=== PATIENT | male | born 1950 | race Caucasian/White ===

== ENCOUNTER 2017-07-19 15:43 | Inpatient (IN) | payer MEDICARE ==
[~2017-07-19] VITALS: Ht 188 cm; Wt 93.0 kg
[~2017-07-19 15:43] MED LIST: COMBTAB PO; COUM5TAB PO; CYMB30CA PO; CYMB60CA PO; CYPR4TAB PO; HYDR10TA16 PO; LAMO25 PO; LISI-360 PO; LORT5TAB PO; NIAC500 PO; PRAV10 PO; QUET1TAB66 PO; REME45TA PO; TRAZ50TA78 PO; XANA1TAB6 PO; [UNRECOGNIZED DRUG - CODE] PO
[2017-07-19 15:58] VITALS: BP 102/55; PULSE 88; RESP 18; TEMP 98.1; O2SAT 95
[2017-07-19 18:38] VITALS: O2SAT 98
[2017-07-19 18:41] VITALS: BP 111/65; PULSE 80; RESP 18; O2SAT 98
[2017-07-19] MEDS ORDERED: SODIUM CHLORIDE 0.9% FLUSH 10 ML FLUSH IVF PRN (18:45)
[2017-07-19] MEDS ORDERED: SODIUM CHLOR 0.9% 1000 ML INJ 1,000 ML IV ONE (18:45)
--- NOTE | 2017-07-19 19:00 | RADRPT ---
EXAM DATE/TIME: 07/19/2017 18:38 [facility] COMPARISON: No previous studies available for comparison. INDICATIONS : Palpitations MEDICAL HISTORY : None. SURGICAL HISTORY : None. ENCOUNTER: Initial ACUITY: 1 day PAIN SCORE: 0/10 LOCATION: chest FINDINGS: A single view of the chest demonstrates the lungs to be symmetrically aerated without evidence of mas s, infiltrate or effusion. The cardiomediastinal contours are unremarkable. Osseous structures are intact. CONCLUSION: No acute disease. Clarence Gaston MD on July 19, 2017 at 18:58 Board Certified Radiologist. This report was verified electronically.
--- NOTE | 2017-07-19 19:18 | PD ---
HPI Chief Complaint: General Weakness Time Seen by Provider: 18:12 Travel History International Travel<30 days: No Contact w/Intl Traveler<30days: No Traveled to known affect area: No History of Present Illness HPI 66 YO M with PMH of HIV, CKD presents to the ED for evaluation of 3 day history of weakness, dizziness. He denies headaches, vision changes, fevers, chills, CP , palpitations, N/V, abdominal pain, changes in bowel habits, melena, hematochezia, dysuria. He states that he has been crawling around his house due to inability to stand. He states that he does make urine, last urination earlier this morning. States last viral load was undetectable and CD4 counts in the 1200s. PCP Dr. Pastrana. [facility] Past Medical History Asthma: No Autoimmune Disease: Yes Bipolar Disorder: Yes Anxiety: Yes Depression: Yes Diabetes: No Diminished Hearing: No Hepatitis: Yes (HEP. A, HIV +) Hiatal Hernia: No Hypertension: Yes Immune Disorder: Yes (HIV/HERPES) Inguinal Hernia: Yes Tetanus Vaccination: < 5 Years Influenza Vaccination: No PNEUMOCCOCAL Vaccine (Year): 1 Past Surgical History Pacemaker: No Other Surgery: Yes (PERIRECTAL ABCESS REMOVAL "YEARS AGO") Social History Alcohol Use: No Tobacco Use: No (PPD) Substance Use: No Allergies-Medications (Allergen,Severity, Reaction): Coded Allergies: emtricitabine (Unverified Adverse Reaction, Severe, AMS, N&V, H/A, LEG SWELLING, 07/20/17) tenofovir (Unverified Adverse Reaction, Severe, AMS, N&V, H/A, LEG SWELLING, 07/20/17) Reported Meds & Prescriptions Reported Meds & Active Scripts Active Review of Systems Except as stated in HPI: all other systems reviewed are Neg Physical Exam Narrative GENERAL: Thin, disheveled, foul-smelling, chronically ill-appearing white male in no acute distress SKIN: Focused skin assessment warm/dry. Multiple skin tears, gout or ecchymosis over the skin surface. No signs of infection. HEAD: Normocephalic. Atraumatic. EYES: No scleral icterus. No injection or drainage. PERRLA. EOMI. NECK: Supple, trachea midline. No JVD or lymphadenopathy. CARDIOVASCULAR: Regular rate and rhythm without murmurs, gallops, or rubs. RESPIRATORY: Breath sounds coarse bilaterally. No accessory muscle use. GASTROINTESTINAL: Abdomen soft, non-tender, nondistended. Active bowel sounds. MUSCULOSKELETAL: No cyanosis, or edema. NEUROLOGICAL: Awake and alert. Cranial nerves II through XII intact. Motor and sensory grossly within normal limits. 3/ 5 muscle strength in all muscle groups. Normal speech. BACK: Nontender without obvious deformity. No CVA tenderness. Data Data Last Documented VS Vital Signs Date Time Temp Pulse Resp B/P (MAP) Pulse Ox O2 Delivery O2 Flow Rate FiO2 07/19/17 20:49 76 16 140/59 (86) 95 Room Air 07/19/17 15:58 98.1 Orders Orders Comprehensive Metabolic Panel (07/19/17 16:52) Complete Blood Count With Diff (07/19/17 16:52) Electrocardiogram (07/19/17 18:35) Act Partial Throm Time (Ptt) (07/19/17 18:35) Prothrombin Time / Inr (Pt) (07/19/17 18:35) Urinalysis - C+S If Indicated (07/19/17 18:35) Chest, Single Ap (07/19/17 18:35) Ct Brain W/O Iv Contrast(Rout) (07/19/17 18:35) Ecg Monitoring (07/19/17 18:35) Iv Access Insert/Monitor (07/19/17 18:35) Oximetry (07/19/17 18:35) Sodium Chloride 0.9% Flush (Ns Flush) (07/19/17 18:45) Sodium Chlor 0.9% 1000 Ml Inj (Ns 1000 M (07/19/17 18:45) Ckmb (Isoenzyme) Profile (07/19/17 17:02) Troponin I (07/19/17 17:02) Admit Order (Ed Use Only) (07/19/17 21:55) Consult Urology (07/19/17 ) CKMB (07/19/17 18:42) CKMB% (07/19/17 18:42) Labs Laboratory Tests Test 07/19/17 18:42 07/19/17 18:45 White Blood Count 10.5 TH/MM3 Red Blood Count 4.76 MIL/MM3 Hemoglobin 16.6 GM/DL Hematocrit 47.3 % Mean Corpuscular Volume 99.4 FL Mean Corpuscular Hemoglobin 34.8 PG Mean Corpuscular Hemoglobin Concent 35.1 % Red Cell Distribution Width 14.6 % Platelet Count 150 TH/MM3 Mean Platelet Volume 7.3 FL Neutrophils (%) (Auto) 69.3 % Lymphocytes (%) (Auto) 18.9 % Monocytes (%) (Auto) 11.7 % Eosinophils (%) (Auto) 0.0 % Basophils (%) (Auto) 0.1 % Neutrophils # (Auto) 7.3 TH/MM3 Lymphocytes # (Auto) 2.0 TH/MM3 Monocytes # (Auto) 1.2 TH/MM3 Eosinophils # (Auto) 0.0 TH/MM3 Basophils # (Auto) 0.0 TH/MM3 CBC Comment DIFF FINAL Differential Comment Blood Urea Nitrogen 34 MG/DL Creatinine 1.31 MG/DL Random Glucose 73 MG/DL Total Protein 7.4 GM/DL Albumin 3.2 GM/DL Calcium Level 9.3 MG/DL Alkaline Phosphatase 86 U/L Aspartate Amino Transf (AST/SGOT) 265 U/L Alanine Aminotransferase (ALT/SGPT) 47 U/L Total Bilirubin 0.7 MG/DL Sodium Level 136 MEQ/L Potassium Level 3.9 MEQ/L Chloride Level 102 MEQ/L Carbon Dioxide Level 25.5 MEQ/L Anion Gap 9 MEQ/L Estimat Glomerular Filtration Rate 55 ML/MIN Total Creatine Kinase 63849 U/L Creatine Kinase MB 18.6 NG/ML Creatine Kinase MB % 0.1 % Troponin I 0.05 NG/ML Prothrombin Time 9.7 SEC Prothromb Time International Ratio 1.0 RATIO Activated Partial Thromboplast Time 25.1 SEC [facility] Medical Decision Making Medical Screen Exam Complete: Yes Emergency Medical Condition: Yes Differential Diagnosis UTI versus PNA versus deconditioning versus metabolic derangement versus dehydration versus other Narrative Course 66 YO M with PMH of HIV, CKD presents to the ED for evaluation of 3 day history of weakness, dizziness. He denies headaches, vision changes, fevers, chills, CP , palpitations, N/V, abdominal pain, changes in bowel habits, melena, hematochezia, dysuria. He states that he has been crawling around his house due to inability to stand. He states that he does make urine, last urination earlier this morning. States last viral load was undetectable and CD4 counts in the 1200s. PCP Dr. Pastrana. Patient's afebrile, BP 102/55 on presentation. Physical exam revealed a disheveled, foul smelling white male in no acute distress. No focal neuro deficits. Abdomen soft and nontender. He does have coarse breath sounds but O2 sats are 95% on room air. EKG rate 84, sinus rhythm. SD interval 167, QRS 85, QTc 388. Normal axis. No acute ST change. Motion artifact. Reviewed by Dr. Gonzalez. CXR: No acute disease per radiology read. CMP: No leukocytosis or anemia noted. INR 1.0. CMP: BUN 34, creatinine 1.31. GFR 55. AST 265, ALT 47. CK 15,[address]: Normal exam per radiology read. Patient was unable to provide a urine sample. Nurses tried multiple times and were unable to insert a Muller catheter. Bladder scan was performed and revealed nearly a liter fluid and the bladder. I spoke with Dr. Amador who will take the patient to the OR for cystoscopy. I spoke with Dr. Alston who agrees to accept the patient to the medicine service. Please see medicine and urology notes for disposition. Lamar Hyman Jul 19, 2017 19:18
[2017-07-19 19:33] LABS: PROTHROMBIN TIME - PATIENT 9.7 SEC (9.8-11.6)
[2017-07-19 19:51] LABS: AUTOMATED NEUTROPHIL # 7.3 TH/MM3 (1.8-7.7); BASOPHIL % 0.1 % (0.0-2.0); HEMATOCRIT 47.3 % (39.0-51.0); HEMOGLOBIN 16.6 GM/DL (13.0-17.0); LYMPH % 18.9 % (9.0-44.0); MEAN CELL VOLUME 99.4 FL (80.0-100.0); MEAN CORPUSCULAR HEMOGLOBIN 34.8 PG (27.0-34.0); MEAN CORPUSCULAR HGB CONC 35.1 % (32.0-36.0); MEAN PLATELET VOLUME 7.3 FL (7.0-11.0); MONO % 11.7 % (0.0-8.0); MONOCYTE # 1.2 TH/MM3 (0-0.9); NEUT % 69.3 % (16.0-70.0); PLATELET COUNT 150 TH/MM3 (150-450); RED BLOOD COUNT 4.76 MIL/MM3 (4.50-5.90); RED CELL DISTRIBUTION WIDTH 14.6 % (11.6-17.2); WHITE BLOOD COUNT 10.5 TH/MM3 (4.0-11.0)
--- NOTE | 2017-07-19 19:53 | RADRPT ---
EXAM DATE/TIME: 07/19/2017 19:37 [facility] COMPARISON: No previous studies available for comparison. INDICATIONS : Dizziness,Incresing weakness,falls RADIATION DOSE: 44.12 CTDIvol (mGy) MEDICAL HISTORY : Hypertension. Hepatitis A. HIV. SURGICAL HISTORY : None. ENCOUNTER: Initial ACUITY: 2 days PAIN SCALE: 0/10 LOCATION: cranial TECHNIQUE: Multiple contiguous axial images were obtained of the head. Using automated exposure control and adj ustment of the mA and/or kV according to patient size, radiation dose was kept as low as reasonably a chievable to obtain optimal diagnostic quality images. DICOM format image data is available electro nically for review and comparison. FINDINGS: CEREBRUM: The ventricles are normal for age. No evidence of midline shift, mass lesion, hemorrhage or acute in farction. No extra-axial fluid collections are seen. POSTERIOR FOSSA: The cerebellum and brainstem are intact. The 4th ventricle is midline. The cerebellopontine angle i s unremarkable. EXTRACRANIAL: The visualized portion of the orbits is intact. SKULL: The calvaria is intact. No evidence of skull fracture. CONCLUSION: Normal examination. Clarence Gaston MD on July 19, 2017 at 19:50 Board Certified Radiologist. This report was verified electronically.
[2017-07-19 20:10] LABS: ALBUMIN 3.2 GM/DL (3.4-5.0); AST (GOT) 265 U/L (15-37); BICARBONATE 25.5 MEQ/L (21.0-32.0); BLOOD UREA NITROGEN 34 MG/DL (7-18); CALCIUM 9.3 MG/DL (8.5-10.1); CHLORIDE 102 MEQ/L (98-107); CREATININE 1.31 MG/DL (0.60-1.30); GLOMERULAR FILTRATION RATE 55 ML/MIN (>89); GLUCOSE,RANDOM 73 MG/DL (74-106); SODIUM (NA) 136 MEQ/L (136-145)
[2017-07-19 20:11] LABS: ALT (GPT) 47 U/L (12-78)
[2017-07-19 20:13] LABS: ALKALINE PHOSPHATASE 86 U/L (45-117); TOTAL BILIRUBIN ADULT 0.7 MG/DL (0.2-1.0); TOTAL PROTEIN 7.4 GM/DL (6.4-8.2)
[2017-07-19 20:49] VITALS: BP 140/59; PULSE 76; RESP 16; O2SAT 95
[2017-07-19 21:22] LABS: TROPONIN I 0.05 NG/ML (0.02-0.05)
[2017-07-20] VITALS (7 sets, daily range): BP systolic 110–138; BP diastolic 55–82; PULSE 62–77; RESP 16–22; TEMP 97.9–98.8; O2SAT 95–97
[2017-07-20] MEDS ORDERED: SODIUM CHLORIDE 0.9% FLUSH 10 ML FLUSH IV FLUSH PRN (01:00)
[2017-07-20] MEDS ORDERED: NALOXONE HCL 0.4 MG/ML AMP IV PUSH PRN (01:00)
[2017-07-20] MEDS: SODIUM CHLOR 0.9% 1000 ML INJ 1,000 ML IV SCH ×3 (01:47→18:35)
[2017-07-20 07:31] LABS: BACTERIA, URINE MANY /hpf; BILIRUBIN, URINE NEG (NEG); BLOOD, URINE MOD (NEG); GLUCOSE,URINE NEG (NEG); KETONE, URINE 10 mg/dL (NEG); NITRITE,URINE NEG (NEG); PH, URINE 8.5 (5.0-8.5); TRIPLE PHOSPHATE CRYSTAL,URINE OCC /hpf; URINE COLOR YELLOW (YELLW/STRAW); URINE LEUKOCYTE ESTERASE LARGE (NEG)
[2017-07-20] MEDS: SODIUM CHLORIDE 0.9% FLUSH 10 ML FLUSH IV FLUSH SCH ×2 (08:15→20:07)
[2017-07-20] MEDS: cefTRIAXone INJ 1,000 MG in SODIUM CHLORIDE 0.9% INJ 100 ML IV SCH (09:38)
[2017-07-20] MEDS: DOCUSATE SODIUM 50 MG/SENNA 8.6 MG TAB PO SCH ×2 (09:38→20:05)
--- NOTE | 2017-07-20 09:54 | RADRPT ---
EXAM DATE/TIME: 07/20/2017 08:58 [facility] COMPARISON: No previous studies available for comparison. INDICATIONS : Obstruction. MEDICAL HISTORY : Hepatitis A. Deep venous thrombosis. Hernia, inguinal. HTN. HIV. Bipolar disorder. Depression. Anxiet y. SURGICAL HISTORY : Left knee surgery. Perirectal abscess removal. ENCOUNTER: Initial ACUITY: 1 month PAIN SCORE: 3/10 LOCATION: Bilateral flank MEASUREMENTS: RIGHT KIDNEY: 9.7 x 4.0 x 5.6 cm LEFT KIDNEY: 10.6 x 3.6 x 6.4 cm FINDINGS: RIGHT KIDNEY: Small echogenic kidney without obstruction. LEFT KIDNEY: Small echogenic kidney with 2 cm cyst no hydronephrosis. BLADDER: Distended with sludge in the bladder. Post void residual suspected. CONCLUSION: 1. Small echogenic kidneys without obstruction 2. Sludge in the bladder. Post void residual suspected. Vince Mackay MD FACR on July 20, 2017 at 9:43 Board Certified Radiologist. This report was verified electronically.
[2017-07-20 10:59] LABS: AUTOMATED NEUTROPHIL # 5.4 TH/MM3 (1.8-7.7); BASOPHIL % 0.1 % (0.0-2.0); HEMATOCRIT 44.7 % (39.0-51.0); HEMOGLOBIN 15.5 GM/DL (13.0-17.0); LYMPH % 20.5 % (9.0-44.0); LYMPHOCYTE # 1.6 TH/MM3 (1.0-4.8); MEAN CELL VOLUME 100.3 FL (80.0-100.0); MEAN CORPUSCULAR HEMOGLOBIN 34.9 PG (27.0-34.0); MEAN CORPUSCULAR HGB CONC 34.7 % (32.0-36.0); MEAN PLATELET VOLUME 7.4 FL (7.0-11.0); MONOCYTE # 0.8 TH/MM3 (0-0.9); NEUT % 69.4 % (16.0-70.0); PLATELET COUNT 133 TH/MM3 (150-450); RED BLOOD COUNT 4.45 MIL/MM3 (4.50-5.90); RED CELL DISTRIBUTION WIDTH 14.2 % (11.6-17.2); WHITE BLOOD COUNT 7.7 TH/MM3 (4.0-11.0)
[2017-07-20 11:19] LABS: BICARBONATE 22.1 MEQ/L (21.0-32.0); CALCIUM 8.3 MG/DL (8.5-10.1); CREATININE 0.92 MG/DL (0.60-1.30)
[2017-07-20] MEDS ORDERED: DEXAMETHASONE SOD PHOS 4 MG/ML VIAL IV ONE (12:00)
[2017-07-20] MEDS ORDERED: ONDANSETRON HCL 4 MG/2 ML VIAL IV ONE (12:00)
[2017-07-20] MEDS ORDERED: KETOROLAC TROMETHAMINE 30 MG/ML (IVP) VIAL IV PUSH ONE (12:00)
[2017-07-20] MEDS ORDERED: PROPOFOL 200 MG/20 ML AMP IV ONE (12:00)
[2017-07-20] MEDS ORDERED: LIDOCAINE HCL 1% PF 5 ML SYRINGE OTHER ONE (12:00)
--- NOTE | 2017-07-20 13:19 | PD.CONS ---
[facility] Service Urology Consult Requested By Jessica Hyman Reason for Consult Urinary retention Primary Care Physician Unknown Diagnosis: History of Present Illness 66-year-old gentleman with history HIV and chronic kidney disease who presented to the emergency room with a 3 day history of weakness and dizziness. An attempt was made to pass a Muller catheter while in the ER without success. Multiple attempts were made by the ER staff again without success. A bladder scan was performed consistent with a distended bladder. The patient was subsequently able to void small amounts of urine. A urology consult was placed to assist with insertion of a Muller catheter. Review of Systems Constitutional: COMPLAINS OF: Fatigue, DENIES: Fever Cardiovascular: DENIES: Chest pain Genitourinary: DENIES: Hematuria Except as stated in HPI: all other systems reviewed are Neg Past Family Social History Past Medical History HIV Herpes Depression Anxiety Hypertension Past Surgical History Status post inguinal herniorrhaphy Status post incision and drainage perirectal abscess Reported Medications Refer to EMR Allergies: Coded Allergies: emtricitabine (Unverified Adverse Reaction, Severe, AMS, N&V, H/A, LEG SWELLING, 07/20/17) tenofovir (Unverified Adverse Reaction, Severe, AMS, N&V, H/A, LEG SWELLING, 07/20/17) Active Ordered Medications Refer to EMR Family History Reviewed and noncontributory Social History Denies tobacco, alcohol or intravenous drug abuse Physical Exam Vital Signs Date Time Temp Pulse Resp B/P (MAP) Pulse Ox O2 Delivery O2 Flow Rate FiO2 07/20/17 12:43 98.3 66 18 121/62 (81) 97 07/20/17 08:18 62 07/20/17 08:18 98.2 66 18 117/56 (76) 97 07/20/17 05:30 97.9 76 22 110/58 (75) 95 07/20/17 01:05 98.1 77 16 138/82 (100) 95 Room Air 07/19/17 20:49 76 16 140/59 (86) 95 Room Air 07/19/17 18:41 80 18 111/65 (80) 98 Room Air 07/19/17 18:38 98 Room Air 07/19/17 16:00 88 18 95 Room Air 07/19/17 15:58 98.1 88 18 102/55 (71) 95 Physical Exam GENERAL: Appears stated age. GASTROINTESTINAL: Abdomen soft, non-tender, GENITOURINARY: Bladder moderately distended, no CVA tenderness, normal phallus, testes bilaterally descended MUSCULOSKELETAL: Extremities adequately perfused NEUROLOGICAL: Awake and alert. Normal speech. Lab results reviewed: Yes Laboratory Tests Test 07/19/17 18:42 07/19/17 18:45 07/20/17 06:30 07/20/17 09:59 White Blood Count 10.5 7.7 Red Blood Count 4.76 4.45 Hemoglobin 16.6 15.5 Hematocrit 47.3 44.7 Mean Corpuscular Volume 99.4 100.3 Mean Corpuscular Hemoglobin 34.8 34.9 Mean Corpuscular Hemoglobin Concent 35.1 34.7 Red Cell Distribution Width 14.6 14.2 Platelet Count 150 133 Mean Platelet Volume 7.3 7.4 Neutrophils (%) (Auto) 69.3 69.4 Lymphocytes (%) (Auto) 18.9 20.5 Monocytes (%) (Auto) 11.7 10.0 Eosinophils (%) (Auto) 0.0 0.0 Basophils (%) (Auto) 0.1 0.1 Neutrophils # (Auto) 7.3 5.4 Lymphocytes # (Auto) 2.0 1.6 Monocytes # (Auto) 1.2 0.8 Eosinophils # (Auto) 0.0 0.0 Basophils # (Auto) 0.0 0.0 CBC Comment DIFF FINAL DIFF FINAL Differential Comment Blood Urea Nitrogen 34 31 Creatinine 1.31 0.92 Random Glucose 73 82 Total Protein 7.4 Albumin 3.2 Calcium Level 9.3 8.3 Alkaline Phosphatase 86 Aspartate Amino Transf (AST/SGOT) 265 Alanine Aminotransferase (ALT/SGPT) 47 Total Bilirubin 0.7 Sodium Level 136 140 Potassium Level 3.9 4.0 Chloride Level 102 107 Carbon Dioxide Level 25.5 22.1 Anion Gap 9 11 Estimat Glomerular Filtration Rate 55 82 Total Creatine Kinase 66569 Creatine Kinase MB 18.6 Creatine Kinase MB % 0.1 Troponin I 0.05 Prothrombin Time 9.7 Prothromb Time International Ratio 1.0 Activated Partial Thromboplast Time 25.1 Urine Color YELLOW Urine Turbidity CLOUDY Urine pH 8.5 Urine Specific [place] 1.019 Urine Protein 300 Urine Glucose (UA) NEG Urine Ketones 10 Urine Occult Blood MOD Urine Nitrite NEG Urine Bilirubin NEG Urine Urobilinogen LESS THAN 2.0 Urine Leukocyte Esterase LARGE Urine RBC 134 Urine WBC 61 Urine Triple Phosphate Crystals OCC Urine Bacteria MANY Microscopic Urinalysis Comment CULTURE INDICATED Date/Time Source Procedure Growth Status 07/20/17 06:30 Urine Random Urine Urine Culture Pending Received Result Diagram: 07/20/17 0959 07/20/17 0959 Imaging Last Impressions Renal Ultrasound 07/20/17 0000 Signed Impressions: Service Date/Time: Thursday, July 20, 2017 08:58 - CONCLUSION: 1. Small echogenic kidneys without obstruction 2. Sludge in the bladder. Post void residual suspected. Vince Mackay MD FACR Head CT [id number] Signed Impressions: Service Date/Time: July 19:37 - CONCLUSION: Normal examination. Clarence Gaston MD Chest X-Ray [id number] Signed Impressions: Service Date/Time: July 18:38 - CONCLUSION: No acute disease. Clarence Gaston MD Assessment and Plan Assessment and Plan Urologic impression: 1. Chronic urinary retention 2. Rule out urethral stricture formation Plan: 1. Keep patient n.p.o. 2. Proceed with cystoscopy and possible direct visual internal urethrotomy today Toby Amador MD Jul 20, 2017 13:19
[2017-07-20] MEDS ORDERED: DO NOT ADM ANY ANTICOAGULANT DRUGS PRN (15:35)
--- NOTE | 2017-07-20 15:37 | PD.OP ---
Operative Report Date of Surgery: Jul 20, 2017 Preoperative Diagnosis: (1) Urinary retention Postoperative Diagnosis: (1) Urinary retention Procedure: Cystoscopy and placement of 20 [place] catheter Anesthesia: General Surgeon: Toby Amador Car Designer(s): None Operation and Findings: Indication for procedures: 66-year-old gentleman with urinary retention who presents now for cystoscopy and possible direct visual internal urethrotomy. Operative procedure in detail: Patient was brought to the operating room suite placed supine on the OR table. He was then placed under general anesthesia. He was then repositioned in the dorsolithotomy position and prepped and draped in normal sterile fashion. After appropriate timeout was undertaken I proceeded with cystoscopic evaluation utilizing the rigid cystoscope with a 20 [place] sheath and 30 lens. The patient was noted to have multiple false passages within the bulbar urethra likely related to multiple attempts to place a Muller catheter by the ER staff. I was able to identify the proper channel and was able to pass a sensor 0.035 wire through this channel up to the urinary bladder. I next was able to follow this wire up into the urinary bladder. The prostatic urethra was not obstructing and were no bladder lesions identified. The cystoscope was withdrawn and a 20 [place] catheter was advanced over the wire without difficulty. Once the catheter was in place the wire was withdrawn. The catheter was then placed to gravity drainage. The patient tolerated the procedures without complications and was transferred to the PACU in satisfactory condition. Toby Amador MD Jul 20, 2017 15:37
[2017-07-20] MEDS ORDERED: QUET1TAB66 PO (16:02)
[2017-07-20] MEDS ORDERED: CYPR4TAB PO ×2 (16:02→16:19)
[2017-07-20] MEDS ORDERED: DARU1TAB2 PO (16:02)
[2017-07-20] MEDS ORDERED: PRAV10 PO (16:02)
[2017-07-20] MEDS ORDERED: REME45TA PO (16:02)
[2017-07-20] MEDS ORDERED: ABAC1TAB7 PO (16:02)
[2017-07-20] MEDS ORDERED: MECL-62 PO (16:02)
[2017-07-20] MEDS ORDERED: XANA1TAB6 PO (16:02)
[2017-07-20] MEDS ORDERED: LISI-360 PO (16:02)
[2017-07-20] MEDS ORDERED: CYMB60CA PO (16:02)
[2017-07-20] MEDS ORDERED: HYDR-3583 PO (16:02)
[2017-07-20] MEDS ORDERED: TRAZ50TA78 PO (16:02)
[2017-07-20] MEDS ORDERED: CYMB30CA PO (16:02)
[2017-07-20] MEDS ORDERED: [UNRECOGNIZED DRUG - CODE] PO ×2 (16:19)
[2017-07-20] MEDS ORDERED: QUET1TAB10 PO (16:19)
[2017-07-20] MEDS ORDERED: MIRT45TA PO (16:19)
[2017-07-20] MEDS ORDERED: ALPR1TAB3 PO (16:19)
[2017-07-20] MEDS ORDERED: TRAZ1TAB14 PO (16:19)
[2017-07-20] MEDS ORDERED: LISI10TA3 PO (16:19)
[2017-07-20] MEDS ORDERED: PRAV10TA PO (16:19)
[2017-07-20] MEDS ORDERED: ABACAVIR LAMIVUDINE PO SCH (16:45)
--- NOTE | 2017-07-20 16:49 | HHI.HP ---
[facility] Service [facility] Primary Care Physician Unknown Admission Diagnosis urinary obstruction Diagnoses: Chief Complaint: Weakness Travel History International Travel<30 Days: No Contact w/Intl Traveler <30 Da: No Traveled to Known Affected Are: No History of Present Illness The patient is a 66-year-old male with a past medical history of HIV and chronic kidney disease who is presenting to the hospital with weakness and difficulty urinating. The patient says that he felt weak for the past couple of days which progressed to the point where he was crawling on the floor. He said that his urine output has been decreasing. He says he went to a hospital for this but was unable to elaborate further on that. He denies any pain. The emergency department a Muller catheter was attempted several times and was unable to be placed. Urology was contacted for Muller placement. The patient has been able to urinate without the Muller catheter but has been putting out a small amount of urine. He denies any diarrhea, nausea and vomiting or fevers. Discussed with nursing. Review of Systems ROS Limitations: Poor Historian Except as stated in HPI: all other systems reviewed are Neg Past Family Social History Past Medical History Bipolar Disorder Hepatitis A HIV Hypertension Inguinal hernia Chronic kidney disease Past Surgical History Perirectal abscess removal Allergies: Coded Allergies: emtricitabine (Unverified Adverse Reaction, Severe, AMS, N&V, H/A, LEG SWELLING, 07/20/17) tenofovir (Unverified Adverse Reaction, Severe, AMS, N&V, H/A, LEG SWELLING, 07/20/17) Physical Exam Vital Signs Vital Signs Date Time Temp Pulse Resp B/P (MAP) Pulse Ox O2 Delivery O2 Flow Rate FiO2 07/20/17 16:28 98.2 70 18 135/63 (87) 97 07/20/17 12:43 98.3 66 18 121/62 (81) 97 07/20/17 08:18 62 07/20/17 08:18 98.2 66 18 117/56 (76) 97 07/20/17 05:30 97.9 76 22 110/58 (75) 95 07/20/17 01:05 98.1 77 16 138/82 (100) 95 Room Air 07/19/17 20:49 76 16 140/59 (86) 95 Room Air 07/19/17 18:41 80 18 111/65 (80) 98 Room Air 07/19/17 18:38 98 Room Air Physical Exam GENERAL: Resting comfortably. SKIN: Focused skin assessment warm/dry. Multiple skin tears over the skin surface. HEAD: Normocephalic. Atraumatic. EYES: No scleral icterus. No injection or drainage. PERRLA. EOMI. NECK: Supple, trachea midline. No JVD or lymphadenopathy. CARDIOVASCULAR: Regular rate and rhythm without murmurs, gallops, or rubs. RESPIRATORY: Breath sounds coarse bilaterally. No accessory muscle use. GASTROINTESTINAL: Abdomen soft, non-tender, nondistended. Active bowel sounds. MUSCULOSKELETAL: No cyanosis, or edema. NEUROLOGICAL: Awake and alert. Cranial nerves II through XII intact. Motor and sensory grossly within normal limits. Normal speech. Laboratory Laboratory Tests Test 07/19/17 18:42 07/19/17 18:45 07/20/17 06:30 07/20/17 09:59 White Blood Count 10.5 7.7 Red Blood Count 4.76 4.45 Hemoglobin 16.6 15.5 Hematocrit 47.3 44.7 Mean Corpuscular Volume 99.4 100.3 Mean Corpuscular Hemoglobin 34.8 34.9 Mean Corpuscular Hemoglobin Concent 35.1 34.7 Red Cell Distribution Width 14.6 14.2 Platelet Count 150 133 Mean Platelet Volume 7.3 7.4 Neutrophils (%) (Auto) 69.3 69.4 Lymphocytes (%) (Auto) 18.9 20.5 Monocytes (%) (Auto) 11.7 10.0 Eosinophils (%) (Auto) 0.0 0.0 Basophils (%) (Auto) 0.1 0.1 Neutrophils # (Auto) 7.3 5.4 Lymphocytes # (Auto) 2.0 1.6 Monocytes # (Auto) 1.2 0.8 Eosinophils # (Auto) 0.0 0.0 Basophils # (Auto) 0.0 0.0 CBC Comment DIFF FINAL DIFF FINAL Differential Comment Blood Urea Nitrogen 34 31 Creatinine 1.31 0.92 Random Glucose 73 82 Total Protein 7.4 Albumin 3.2 Calcium Level 9.3 8.3 Alkaline Phosphatase 86 Aspartate Amino Transf (AST/SGOT) 265 Alanine Aminotransferase (ALT/SGPT) 47 Total Bilirubin 0.7 Sodium Level 136 140 Potassium Level 3.9 4.0 Chloride Level 102 107 Carbon Dioxide Level 25.5 22.1 Anion Gap 9 11 Estimat Glomerular Filtration Rate 55 82 Total Creatine Kinase 52785 Creatine Kinase MB 18.6 Creatine Kinase MB % 0.1 Troponin I 0.05 Prothrombin Time 9.7 Prothromb Time International Ratio 1.0 Activated Partial Thromboplast Time 25.1 Urine Color YELLOW Urine Turbidity CLOUDY Urine pH 8.5 Urine Specific [place] 1.019 Urine Protein 300 Urine Glucose (UA) NEG Urine Ketones 10 Urine Occult Blood MOD Urine Nitrite NEG Urine Bilirubin NEG Urine Urobilinogen LESS THAN 2.0 Urine Leukocyte Esterase LARGE Urine RBC 134 Urine WBC 61 Urine Triple Phosphate Crystals OCC Urine Bacteria MANY Microscopic Urinalysis Comment CULTURE INDICATED Date/Time Source Procedure Growth Status 07/20/17 06:30 Urine Random Urine Urine Culture Pending Received Result Diagram: 07/20/17 0959 07/20/17 0959 Imaging Last Impressions Renal Ultrasound 07/20/17 0000 Signed Impressions: Service Date/Time: Thursday, July 20, 2017 08:58 - CONCLUSION: 1. Small echogenic kidneys without obstruction 2. Sludge in the bladder. Post void residual suspected. Vince Mackay MD FACR Head CT [id number]/19/171834 Signed Impressions: Service Date/Time: July 19:37 - CONCLUSION: Normal examination. Clarence Gaston MD Chest X-Ray 07/19/171834 Signed Impressions: Service Date/Time: July 18:38 - CONCLUSION: No acute disease. Clarence Gaston MD Caprini VTE Risk Assessment Caprini VTE Risk Assessment: Mod/High Risk (score >= 2) Caprini Risk Assessment Model Point Value = 1 Point Value = 2 Point Value = 3 Point Value = 5 Age 41-60 Minor surgery BMI > 25 kg/m2 Swollen legs Varicose veins or History of unexplained or recurrent spontaneous Oral contraceptives or hormone replacement Sepsis (< 1 month) Serious lung disease, including pneumonia (< 1 month) Abnormal pulmonary function Acute myocardial infarction Congestive heart failure (< 1 month) History of inflammatory bowel disease Medical patient at bed rest Age 61-74 Arthroscopic surgery Major open surgery (> 45 min) Laparoscopic surgery (> 45 min) Malignancy Confined to bed (> 72 hours) Immobilizing plaster cast Central venous access Age >= 75 History of VTE Family history of VTE Factor V Leiden Prothrombin [id number] Lupus anticoagulant Anticardiolipin antibodies Elevated serum homocysteine Heparin-induced thrombocytopenia Other congenital or acquired thrombophilia Stroke (< 1 month) Elective arthroplasty Hip, pelvis, or leg fracture Acute spinal cord injury (< 1 month) Prophylaxis Regimen Total Risk Factor Score Risk Level Prophylaxis Regimen 0-1 Low Early ambulation 2 Moderate Order ONE of the following: *Sequential Compression Device (SCD) *Heparin 5000 units SQ BID 3-4 Higher Order ONE of the following medications: *Heparin 5000 units SQ TID *Enoxaparin/Lovenox 40 mg SQ daily (WT < 150 kg, CrCl > 30 mL/min) *Enoxaparin/Lovenox 30 mg SQ daily (WT < 150 kg, CrCl > 10-29 mL/min) *Enoxaparin/Lovenox 30 mg SQ BID (WT < 150 kg, CrCl > 30 mL/min) AND/OR *Sequential Compression Device (SCD) 5 or more Highest Order ONE of the following medications: *Heparin 5000 units SQ TID (Preferred with Epidurals) *Enoxaparin/Lovenox 40 mg SQ daily (WT < 150 kg, CrCl > 30 mL/min) *Enoxaparin/Lovenox 30 mg SQ daily (WT < 150 kg, CrCl > 10-29 mL/min) *Enoxaparin/Lovenox 30 mg SQ BID (WT < 150 kg, CrCl > 30 mL/min) AND *Sequential Compression Device (SCD) Assessment and Plan Assessment and Plan Acute urinary retention Muller catheter was unable to be placed. Ultrasound the kidneys showed: Small echogenic kidneys without obstruction; Sludge in the bladder. Urology consult appreciated. Status post Muller placement in the OR. - Continue Muller. - Follow up with urology. Weakness The patient mentions he has been crawling on the floor. - Physical therapy. - Check B12 and TSH level. HIV The patient states he takes his medications regularly. - Resume home medications. Hypertension Blood pressure well controlled at this time. - Resume home medications. Bipolar disorder The pt has been confused at times. May be s/t polypharmacy. - continue to monitor. - med rec clarified. Holding duplicate medications. Chronic kidney disease Creatinine is stable at this time. - Avoid nephrotoxic agents. PPx: Heparin Discussed Condition With Pt, nurse Physician Certification 2 Midnight Certification Type: Admission for Inpatient Services Order for Inpatient Services The services are ordered in accordance with Medicare regulations or non- Medicare payer requirements, as applicable. In the case of services not specified as inpatient-only, they are appropriately provided as inpatient services in accordance with the 2-midnight benchmark. Estimated LOS (days): 2 days is the estimated time the patient will need to remain in the hospital, assuming treatment plan goals are met and no additional complications. Post-Hospital Plan: Not yet determined Justino Phelan DO Jul 20, 2017 16:49
[2017-07-20] MEDS: ABACAVIR SULFATE 300 MG TAB PO SCH (18:31)
[2017-07-20] MEDS: DULoxetine HCl DR 30 MG CAP PO SCH (20:06)
[2017-07-20] MEDS: MIRTAZAPINE 15 MG TAB PO SCH (20:06)
[2017-07-20] MEDS: traZODone HCL 50 MG TAB PO SCH (20:07)
[2017-07-20] MEDS: QUEtiapine FUMARATE 300 MG TAB PO SCH (20:15)
[2017-07-20] MEDS: CYPROHEPTADINE HCL 4 MG TAB PO SCH (21:11)
[2017-07-20] MEDS: HEPARIN SODIUM - SQ 10,000 UNITS/ML VIAL SQ SCH (23:11)
[2017-07-21] VITALS (12 sets, daily range): BP systolic 102–145; BP diastolic 53–75; PULSE 60–84; RESP 18–20; TEMP 97.2–98.5; O2SAT 91–98
--- NOTE | 2017-07-21 00:33 | EKG ---
Date Performed: 07/19/2017 Time Performed: 18:48:55 PTAGE: 66 years EKG: Sinus rhythm WITH SINUS ARRHYTHMIA NORMAL ECG PREVIOUS TRACING : 12/08/2010 06.45 Since the prior tracing, there has been no significant salgado DOCTOR: Uriah Monaco Interpretating Date/Time 07/21/2017 00:32:39
[2017-07-21] MEDS: HEPARIN SODIUM - SQ 10,000 UNITS/ML VIAL SQ SCH ×3 (05:12→22:38)
[2017-07-21] MEDS: SODIUM CHLOR 0.9% 1000 ML INJ 1,000 ML IV SCH ×2 (06:49→17:25)
[2017-07-21] MEDS: PRAVASTATIN SOD 10 MG TAB PO SCH (08:54)
[2017-07-21] MEDS: DOCUSATE SODIUM 50 MG/SENNA 8.6 MG TAB PO SCH ×3 (08:54→22:41)
[2017-07-21] MEDS: TAMSULOSIN HCL 0.4 MG CAP PO SCH (08:54)
[2017-07-21] MEDS: LISINOPRIL 10 MG TAB PO SCH (08:54)
[2017-07-21] MEDS: ABACAVIR SULFATE 300 MG TAB PO SCH (08:54)
[2017-07-21] MEDS: DARUNAVIR COBICISTAT PO SCH (08:55)
[2017-07-21] MEDS: cefTRIAXone INJ 1,000 MG in SODIUM CHLORIDE 0.9% INJ 100 ML IV SCH (08:55)
[2017-07-21] MEDS: SODIUM CHLORIDE 0.9% FLUSH 10 ML FLUSH IV FLUSH SCH ×2 (08:56→21:00)
--- NOTE | 2017-07-21 14:29 | HHI.PR ---
Subjective Remarks Pt states he feels down. states PT came when he was having lunch and he felt rushed. denies any CP, had some sob but none now, no n/v Objective Vitals Vital Signs Date Time Temp Pulse Resp B/P (MAP) Pulse Ox O2 Delivery O2 Flow Rate FiO2 07/21/17 12:39 92 07/21/17 11:53 97.6 62 18 145/75 (98) 92 07/21/17 08:50 76 07/21/17 08:00 97.6 71 18 102/53 (69) 91 07/21/17 04:40 98.2 71 18 109/56 (73) 93 07/21/17 03:42 66 07/21/17 00:20 98.5 65 18 119/67 (84) 98 07/20/17 21:00 66 07/20/17 20:20 98.8 63 18 115/55 (75) 95 07/20/17 16:28 98.2 70 18 135/63 (87) 97 07/20/17 16:00 71 23 116/55 (75) 99 Room Air 07/20/17 15:45 65 22 109/60 (76) 99 Room Air 07/20/17 15:35 97.7 66 23 112/59 (76) 97 Nasal Cannula 4 I/O 07/20/17 07/20/17 07/20/17 07/21/17 07/21/17 07/21/17 07:00 15:00 23:00 07:00 15:00 23:00 Intake Total 1100 ml 1800 ml 650 ml 100 ml Output Total 355 ml Balance 1100 ml 1445 ml 650 ml 100 ml Intake Oral 1000 ml 650 ml IV Total 1100 ml 800 ml 100 ml Output Urine Total 350 ml Estimated Blood Loss 5 ml # Voids 2 # Bowel Movements 0 0 Result Diagram: 07/20/17 0959 07/20/17 0959 Imaging Last Impressions Renal Ultrasound 07/20/17 0000 Signed Impressions: Service Date/Time: Thursday, July 20, 2017 08:58 - CONCLUSION: 1. Small echogenic kidneys without obstruction 2. Sludge in the bladder. Post void residual suspected. Vince Mackay MD FACR Head CT 07/19/17 1835 Signed Impressions: Service Date/Time: July 19:37 - CONCLUSION: Normal examination. Clarence Gaston MD Chest X-Ray 07/19/17 [id number] Signed Impressions: Service Date/Time: July 18:38 - CONCLUSION: No acute disease. Clarence Gaston MD Objective Remarks GENERAL: Resting comfortably. SKIN: Multiple skin tears over the skin surface. NECK: trachea midline. CARDIOVASCULAR: Regular rate and rhythm without murmurs RESPIRATORY: Breath sounds coarse bilaterally. No accessory muscle use. GASTROINTESTINAL: Abdomen soft, non-tender, nondistended. Active bowel sounds. MUSCULOSKELETAL: No edema. NEUROLOGICAL: Awake and alert. Motor and sensory grossly within normal limits. Normal speech. A/P Assessment and Plan Acute urinary retention Ultrasound the kidneys showed: Small echogenic kidneys without obstruction; Sludge in the bladder. Urology evaluated the pt and he is s/p Cystoscopy and placement of 20 [place] catheter - Continue Muller.on flomax Weakness The patient mentions he has been crawling on the floor. - Physical therapy did evaluate the patient and recommends rehab. CM consulted for d/c planning - B12 and TSH wnl. HIV The patient states he takes his medications regularly. - on home medications. Hypertension Blood pressure well controlled at this time. - on home medications. Bipolar disorder The pt has been confused at times. May be s/t polypharmacy. - continue to monitor. - med rec clarified. Holding duplicate medications. Chronic kidney disease Creatinine is stable at this time. - Avoid nephrotoxic agents. PPx: Heparin Discharge Planning Pt will require rehab placement. CM assisting w d/c planning Katrina Saez MD Jul 21, 2017 14:29
[2017-07-21] MEDS: DULoxetine HCl DR 30 MG CAP PO SCH (22:37)
[2017-07-21] MEDS: MIRTAZAPINE 15 MG TAB PO SCH (22:37)
[2017-07-21] MEDS: CYPROHEPTADINE HCL 4 MG TAB PO SCH (22:37)
[2017-07-21] MEDS: QUEtiapine FUMARATE 300 MG TAB PO SCH (22:37)
[2017-07-21] MEDS: traZODone HCL 50 MG TAB PO SCH (22:38)
[2017-07-22] VITALS (19 sets, daily range): BP systolic 106–166; BP diastolic 57–70; PULSE 62–120; RESP 17–21; TEMP 97.2–98.7; O2SAT 89–97
[2017-07-22] MEDS ORDERED: ACETAMINOPHEN 325 MG TAB PO ONE (02:45)
[2017-07-22] MEDS ORDERED: RESP: ALBUTEROL 2.5 MG/IPRATROPIUM 0.5 MG NEB (PRN) NEB (03:15)
[2017-07-22] MEDS ORDERED: RESP: ALBUTEROL 2.5 MG/IPRATROPIUM 0.5 MG NEB (SCH) NEB ONE (03:15)
[2017-07-22] MEDS: HEPARIN SODIUM - SQ 10,000 UNITS/ML VIAL SQ SCH ×3 (06:00→22:00)
[2017-07-22] MEDS: DARUNAVIR COBICISTAT PO SCH (09:17)
[2017-07-22] MEDS: TAMSULOSIN HCL 0.4 MG CAP PO SCH (09:18)
[2017-07-22] MEDS: PRAVASTATIN SOD 10 MG TAB PO SCH (09:18)
[2017-07-22] MEDS: ABACAVIR SULFATE 300 MG TAB PO SCH (09:18)
[2017-07-22] MEDS: SODIUM CHLORIDE 0.9% FLUSH 10 ML FLUSH IV FLUSH SCH ×2 (09:18→21:00)
[2017-07-22] MEDS: DOCUSATE SODIUM 50 MG/SENNA 8.6 MG TAB PO SCH ×2 (09:18→22:41)
[2017-07-22] MEDS: LISINOPRIL 10 MG TAB PO SCH (09:18)
[2017-07-22] MEDS: cefTRIAXone INJ 1,000 MG in SODIUM CHLORIDE 0.9% INJ 100 ML IV SCH (09:19)
--- NOTE | 2017-07-22 11:01 | RADRPT ---
EXAM DATE/TIME: 07/22/2017 10:27 [place] COMPARISON: No previous studies available for comparison. INDICATIONS : Left knee pain. MEDICAL HISTORY : Hepatitis A. Deep venous thrombosis. Hernia, inguinal. HTN. HIV. Bipolar disorder. SURGICAL HISTORY : Left knee patella surgery. ENCOUNTER: Initial ACUITY: 1 month PAIN SCORE: 4/10 LOCATION: Left knee. FINDINGS: 4 view examination demonstrates a wire ligature which extends about the patella and inserts into the anterior tibia near the tubercle. There is some sclerosis at the insertion site and there is marked deformity of the patella with bony hypertrophy extending both superior and inferior. The patella is in a low-lying position. The suprapatellar soft tissues are normal in thickness. The femur and tibi a appear grossly intact. No evidence of acute fracture. CONCLUSION: No evidence of acute bony injury. Surgical findings related to ligature fixation of the patella with associated hypertrophic ossification about the patella.. Natanael Monge MD on July 22, 2017 at 10:52 Board Certified Radiologist. This report was verified electronically.
[2017-07-22] MEDS: ALPRAZolam 0.5 MG TAB PO PRN ×2 (11:43→22:42)
[2017-07-22] MEDS ORDERED: ONDANSETRON HCL 4 MG/2 ML VIAL ONE (12:47)
--- NOTE | 2017-07-22 15:20 | HHI.PR ---
Subjective Remarks Pt denies any pain, SOB, n/v. Has no complaints. Watching TV but not very talkative I was notified by nursing staff that he had a fall last night but no LOS or hitting his head. Did have some scratches on his knees. Night team was notified Objective Vitals Vital Signs Date Time Temp Pulse Resp B/P (MAP) Pulse Ox O2 Delivery O2 Flow Rate FiO2 07/22/17 12:45 16 07/22/17 12:33 95 Nasal Cannula 2.00 07/22/17 12:00 98.1 63 19 150/70 (96) 97 07/22/17 10:30 68 07/22/17 08:00 97.9 73 17 166/70 (102) 96 07/22/17 06:00 98.2 75 19 120/59 (79) 94 07/22/17 04:47 98.2 76 18 118/59 (78) 94 07/22/17 04:00 98.4 76 20 117/64 (81) 93 07/22/17 03:31 94 Nasal Cannula 2.00 07/22/17 03:00 97.7 90 21 116/65 (82) 90 07/22/17 02:45 97.7 89 20 109/57 (74) 89 07/22/17 02:00 98.7 120 20 135/63 (87) 07/22/17 00:23 98.2 67 18 131/64 (86) 93 07/21/17 20:20 98.5 60 20 136/68 (90) 93 07/21/17 20:00 98.4 84 20 119/58 (78) 91 07/21/17 16:16 97.2 67 20 110/56 (74) 93 07/21/17 16:00 65 I/O 07/21/17 07/21/17 07/21/17 07/22/17 07/22/17 07/22/17 06:59 14:59 22:59 06:59 14:59 22:59 Intake Total 650 ml 100 ml 1720 ml 240 ml Output Total 1350 ml Balance 650 ml 100 ml 1720 ml -1110 ml Intake Oral 650 ml 720 ml 240 ml IV Total 100 ml 1000 ml Output Urine Total 1350 ml # Voids 2 # Bowel Movements 0 Result Diagram: 07/20/17 0959 07/20/17 0959 Imaging Last Impressions Knee X-Ray 07/22/17 0000 Signed Impressions: Service Date/Time: Saturday, July 22, 2017 10:27 - CONCLUSION: No evidence of acute bony injury. Surgical findings related to ligature fixation of the patella with associated hypertrophic ossification about the patella.. Natanael Monge MD Renal Ultrasound 07/20/17 0000 Signed Impressions: Service Date/Time: Thursday, July 20, 2017 08:58 - CONCLUSION: 1. Small echogenic kidneys without obstruction 2. Sludge in the bladder. Post void residual suspected. Vince Mackay MD FACR Head CT 07/19/171834 Signed Impressions: Service Date/Time: July 19:37 - CONCLUSION: Normal examination. Clarence Gaston MD Chest X-Ray 07/19/171834 Signed Impressions: Service Date/Time: July 18:38 - CONCLUSION: No acute disease. Clarence Gaston MD Objective Remarks GENERAL: Resting comfortably. SKIN: Multiple skin tears over the skin surface. small abrasions noted on his knees, not signs of infection NECK: trachea midline. CARDIOVASCULAR: Regular rate and rhythm without murmurs RESPIRATORY: Breath sounds coarse bilaterally. No accessory muscle use. GASTROINTESTINAL: Abdomen soft, non-tender, nondistended. Active bowel sounds. MUSCULOSKELETAL: No edema. NEUROLOGICAL: Awake and alert. Motor and sensory grossly within normal limits. Normal speech. A/P Assessment and Plan Acute urinary retention Ultrasound the kidneys showed: Small echogenic kidneys without obstruction; Sludge in the bladder. Urology evaluated the pt and he is s/p Cystoscopy and placement of 20 [place] catheter - Continue Muller.on flomax. urine does look somewhat bloody - urine cx growing corynebacterium >100,000 cfu/ml. ID consult placed. continue rocephin IV Weakness The patient mentioned he has been crawling on the floor prior to admission. - Physical therapy did evaluate the patient and recommends rehab. CM consulted for d/c planning - B12 and TSH wnl. HIV The patient states he takes his medications regularly. - on home medications. Hypertension Blood pressure well controlled at this time. - on home medications. Bipolar disorder The pt has been confused at times. May be s/t polypharmacy. - continue to monitor. Chronic kidney disease Creatinine is stable at this time. - Avoid nephrotoxic agents. PPx: Heparin Discharge Planning Pt will require rehab placement. CM assisting w d/c planning ID consult in place. f/u recommendations Katrina Saez MD Jul 22, 2017 15:20
[2017-07-22] MEDS: CYPROHEPTADINE HCL 4 MG TAB PO SCH (22:40)
[2017-07-22] MEDS: QUEtiapine FUMARATE 300 MG TAB PO SCH (22:41)
[2017-07-22] MEDS: MIRTAZAPINE 15 MG TAB PO SCH (22:41)
[2017-07-22] MEDS: traZODone HCL 50 MG TAB PO SCH (22:41)
[2017-07-22] MEDS: DULoxetine HCl DR 30 MG CAP PO SCH (22:42)
[2017-07-22] MEDS: SODIUM CHLOR 0.9% 1000 ML INJ 1,000 ML IV SCH (22:55)
[2017-07-23] VITALS (7 sets, daily range): BP systolic 122–153; BP diastolic 61–88; PULSE 69–101; RESP 18–20; TEMP 98–98.8; O2SAT 93–96
[2017-07-23] MEDS: HEPARIN SODIUM - SQ 10,000 UNITS/ML VIAL SQ SCH ×3 (06:00→22:48)
[2017-07-23] MEDS: SODIUM CHLOR 0.9% 1000 ML INJ 1,000 ML IV SCH (08:49)
[2017-07-23] MEDS: DOCUSATE SODIUM 50 MG/SENNA 8.6 MG TAB PO SCH ×2 (09:00→22:46)
[2017-07-23] MEDS: DARUNAVIR COBICISTAT PO SCH (09:00)
[2017-07-23] MEDS: SODIUM CHLORIDE 0.9% FLUSH 10 ML FLUSH IV FLUSH SCH ×2 (09:00→22:45)
[2017-07-23] MEDS: ABACAVIR SULFATE 300 MG TAB PO SCH (10:26)
[2017-07-23] MEDS: TAMSULOSIN HCL 0.4 MG CAP PO SCH (10:26)
[2017-07-23] MEDS: PRAVASTATIN SOD 10 MG TAB PO SCH (10:27)
[2017-07-23] MEDS: LISINOPRIL 10 MG TAB PO SCH (10:29)
[2017-07-23] MEDS: cefTRIAXone INJ 1,000 MG in SODIUM CHLORIDE 0.9% INJ 100 ML IV SCH (10:31)
--- NOTE | 2017-07-23 13:36 | MB ---
cc: ROMÁN CANCINO MD DATE OF CONSULTATION 07/23/[address] Saez REASON Urine culture growing Corynebacterium greater than 100,000 colonies. Appreciate your recommendations. HISTORY OF PRESENT ILLNESS This is a 66-year-old white male who presented to the emergency department on 05/18 with generalized weakness. The patient reportedly was experiencing weakness and dizziness. He had no fever, chills, nausea, vomiting or other significant symptoms. Reportedly he was crawling around his house because of inability to stand. The patient has HIV disease. He has been managed and treated for HIV. The patient has some problems with urination and a Muller catheter was placed after he was found to have urine retention. Urinalysis was taken and it came back with a large amount of leukocyte esterase and 61 white cells and many bacteria. Occasional triple phosphate crystals were also noted. The Muller catheter now has bloody urine. Culture of the urine has Corynebacterium species. The patient denies back pain. He is awake but confused. While talking to him he is answering questions briefly but rambling on with conversation which is not related to the questions asked. On admission, total CK was 15,571. Estimated GFR was 55 on admission but quickly improved to 82 the following day. He is afebrile. White blood cell count is normal. PAST MEDICAL HISTORY 1. HIV disease since 1985. 2. Bipolar disorder. 3. Hepatitis A. 4. Hypertension. 5. Chronic kidney disease. 6. History of perirectal abscess. ALLERGIES EMTRICITABINE. TENOFOVIR. MEDICATIONS 1. Flomax. 2. Prinivil. 3. Pravachol. 4. Periactin. 5. Remeron. 6. Seroquel. 7. Cymbalta. 8. Desyrel. 9. Ziagen. 10. Epivir. 11. Darunavir. 12. Xanax. 13. Ceftriaxone. 14. Sivan-Colace. 15. Oxycodone 5 mg p.r.n. SOCIAL HISTORY The patient reportedly is in a stable relationship with a male partner. No tobacco, no alcohol, no illicit drugs. FAMILY HISTORY Noncontributory. REVIEW OF SYSTEMS Difficult to obtain because of the patient's mental status but he denies fever, chills, nausea, vomiting, back pain, muscle pain, shortness of breath or headaches. PHYSICAL EXAMINATION GENERAL: This is an elderly well-developed male who appears older than stated age. He is awake and he is alert. VITAL SIGNS: Temperature 98.4, BP 142/65, respirations 18, heart rate 84. HEENT: The head is atraumatic. Extraocular movements grossly intact. Pupils reactive to light. No icterus. Oropharynx - slightly dry mucosa. No lesions. NECK: Supple without adenopathy. LUNGS: Clear breath sounds. HEART: Regular S1 and S2, without murmurs, rubs or gallops. ABDOMEN: Bowel sounds present, soft, no tenderness appreciated. RECTAL: Not performed. EXTREMITIES: No clubbing or clubbing or cyanosis. Trace edema of the upper extremities. Ecchymosis apparent at the upper extremities. SKIN: No diffuse rash. The skin is warm and moist. NEURO: Nonfocal. PSYCH: The patient is calm and cooperative. LABORATORY DATA WBCs 7.7, platelets 133, hemoglobin 15.5. Creatinine 0.92, BUN 31, sodium 140. IMAGING STUDIES Ultrasound of the kidney showed small echogenic kidneys without obstruction. Sludge noted in the bladder. IMPRESSION Abnormal urinary culture with Corynebacterium. Corynebacterium is usually not a urinary pathogen and as such I do not think it needs to be treated at this time. PLAN 1. I will repeat the urinalysis and repeat the culture if indicated. 2. The medications for HIV disease can be continued. Thank you this consultation. I will follow the patient's progress and make further recommendations upon followup if necessary. Román Cancino MD FD/DARCIE /12:34 PM /1:20 PM
[2017-07-23 14:44] LABS: AMORPHOUS SEDIMENT, URINE RARE; BACTERIA, URINE RARE /hpf; BILIRUBIN, URINE NEG (NEG); BLOOD, URINE MOD (NEG); GLUCOSE,URINE NEG (NEG); KETONE, URINE NEG (NEG); MUCUS URINE FEW /lpf (OCC); NITRITE,URINE NEG (NEG); URINE COLOR YELLOW (YELLW/STRAW); URINE LEUKOCYTE ESTERASE SMALL (NEG)
--- NOTE | 2017-07-23 14:57 | HHI.PR ---
Subjective Remarks F/U urinary retention. No Complints dw RN and CM, no accepting facility Objective Vitals Vital Signs Date Time Temp Pulse Resp B/P (MAP) Pulse Ox O2 Delivery O2 Flow Rate FiO2 07/23/17 12:00 98.4 84 18 142/65 (90) 93 07/23/17 07:54 98.8 81 18 147/69 (95) 95 07/23/17 04:40 98.0 73 18 136/67 (90) 96 07/23/17 00:12 98.6 101 18 136/61 (86) 93 07/22/17 20:00 97.2 95 20 110/59 (76) 95 07/22/17 18:20 18 07/22/17 17:42 96 Nasal Cannula 2.00 07/22/17 16:00 98.0 74 18 132/68 (89) 96 07/22/17 15:00 62 I/O 07/22/17 07/22/17 07/22/17 07/23/17 07/23/17 07/23/17 07:00 15:00 23:00 07:00 15:00 23:00 Intake Total 240 ml 720 ml 120 ml Output Total 1350 ml 650 ml 1300 ml Balance -1110 ml 70 ml -1180 ml Intake Oral 240 ml 720 ml 120 ml Output Urine Total 1350 ml 650 ml 1300 ml # Bowel Movements 0 Result Diagram: 07/20/17 0959 07/20/17 0959 Imaging Last Impressions Knee X-Ray 07/22/17 0000 Signed Impressions: Service Date/Time: Saturday, July 22, 2017 10:27 - CONCLUSION: No evidence of acute bony injury. Surgical findings related to ligature fixation of the patella with associated hypertrophic ossification about the patella.. Natanael Monge MD Renal Ultrasound 07/20/17 0000 Signed Impressions: Service Date/Time: Thursday, July 20, 2017 08:58 - CONCLUSION: 1. Small echogenic kidneys without obstruction 2. Sludge in the bladder. Post void residual suspected. Vince Mackay MD FACR Head CT [id number]/[id number] Signed Impressions: Service Date/Time: July 19:37 - CONCLUSION: Normal examination. Clarence Gaston MD Chest X-Ray [id number]/19/[id number] Signed Impressions: Service Date/Time: July 18:38 - CONCLUSION: No acute disease. Clarence Gaston MD Objective Remarks GENERAL: Resting comfortably. SKIN: Multiple skin tears over the skin surface. small abrasions noted on his knees, not signs of infection NECK: trachea midline. CARDIOVASCULAR: Regular rate and rhythm without murmurs RESPIRATORY: Breath sounds coarse bilaterally. No accessory muscle use. GASTROINTESTINAL: Abdomen soft, non-tender, nondistended. Active bowel sounds. MUSCULOSKELETAL: No edema. NEUROLOGICAL: Awake and alert. Motor and sensory grossly within normal limits. Normal speech. Procedures Cystoscopy with placement of Muller catheter A/P Problem List: (1) Urinary retention ICD Code: R33.9 - Retention of urine, unspecified Assessment and Plan Acute urinary retention Ultrasound the kidneys showed: Small echogenic kidneys without obstruction; Sludge in the bladder. Urology evaluated the pt and he is s/p Cystoscopy and placement of 20 [place] catheter - Continue Muller.on flomax. urine does look somewhat bloody - urine cx growing corynebacterium >100,000 cfu/ml. ID consult placed. Discontinue rocephin IV and f/u Weakness The patient mentioned he has been crawling on the floor prior to admission. - Physical therapy did evaluate the patient and recommends rehab. CM consulted for d/c planning - B12 and TSH wnl. HIV The patient states he takes his medications regularly. - on home medications. Hypertension Blood pressure well controlled at this time. - on home medications. Bipolar disorder The pt has been confused at times. May be s/t polypharmacy. - continue to monitor. Chronic kidney disease. Improving renal indices on IV hydration Creatinine is stable at this time. - Avoid nephrotoxic agents. PPx: Heparin Discharge Planning dc to rehab when arranged Salo Rodarte MD Jul 23, 2017 14:57
[2017-07-23] MEDS: MIRTAZAPINE 15 MG TAB PO SCH (22:46)
[2017-07-23] MEDS: CYPROHEPTADINE HCL 4 MG TAB PO SCH (22:46)
[2017-07-23] MEDS: traZODone HCL 50 MG TAB PO SCH (22:46)
[2017-07-23] MEDS: QUEtiapine FUMARATE 300 MG TAB PO SCH (22:47)
[2017-07-23] MEDS: DULoxetine HCl DR 30 MG CAP PO SCH (22:47)
[2017-07-24] VITALS (8 sets, daily range): BP systolic 104–136; BP diastolic 61–85; PULSE 78–116; RESP 18–24; TEMP 97.3–99.3; O2SAT 92–97
[2017-07-24] MEDS: HEPARIN SODIUM - SQ 10,000 UNITS/ML VIAL SQ SCH (05:26)
[2017-07-24] MEDS: SODIUM CHLORIDE 0.9% FLUSH 10 ML FLUSH IV FLUSH SCH ×2 (09:37→23:18)
[2017-07-24] MEDS: DOCUSATE SODIUM 50 MG/SENNA 8.6 MG TAB PO SCH ×2 (09:40→23:20)
[2017-07-24] MEDS: ABACAVIR SULFATE 300 MG TAB PO SCH (09:40)
[2017-07-24] MEDS: TAMSULOSIN HCL 0.4 MG CAP PO SCH (09:40)
[2017-07-24] MEDS: PRAVASTATIN SOD 10 MG TAB PO SCH (09:42)
[2017-07-24] MEDS: LISINOPRIL 10 MG TAB PO SCH (09:42)
[2017-07-24] MEDS: DARUNAVIR COBICISTAT PO SCH (09:44)
--- NOTE | 2017-07-24 13:14 | HHI.PR ---
Subjective Remarks Follow-up acute urinary retention. Patient is confused he seems to be hallucinating. Discussed with partner, hallucinations started 3 days prior to admission. Patient does not drink alcohol but on chronic benzo and narcotics. Objective Vitals Vital Signs Date Time Temp Pulse Resp B/P (MAP) Pulse Ox O2 Delivery O2 Flow Rate FiO2 07/24/17 12:05 98.5 116 18 136/74 (94) 92 07/24/17 11:22 88 07/24/17 08:03 97.3 95 18 127/61 (83) 92 07/24/17 01:00 97.9 105 20 135/85 (102) 94 07/23/17 21:30 98.8 80 20 122/88 (99) 95 07/23/17 16:00 98.0 83 18 153/72 (99) 95 I/O 07/23/17 07/23/17 07/23/17 07/24/17 07/24/17 07/24/17 07:00 15:00 23:00 07:00 15:00 23:00 Intake Total 120 ml 875 ml 1000 ml Output Total 1300 ml 600 ml 1500 ml Balance -1180 ml 275 ml -500 ml Intake Oral 120 ml 875 ml 1000 ml Output Urine Total 1300 ml 600 ml 1500 ml # Bowel Movements 0 0 Result Diagram: 07/20/17 0959 07/20/17 0959 Imaging Last Impressions Knee X-Ray 07/22/17 0000 Signed Impressions: Service Date/Time: Saturday, July 22, 2017 10:27 - CONCLUSION: No evidence of acute bony injury. Surgical findings related to ligature fixation of the patella with associated hypertrophic ossification about the patella.. Natanael Monge MD Renal Ultrasound 07/20/17 0000 Signed Impressions: Service Date/Time: Thursday, July 20, 2017 08:58 - CONCLUSION: 1. Small echogenic kidneys without obstruction 2. Sludge in the bladder. Post void residual suspected. Vince Mackay MD FACR Head CT [id number]/19/171834 Signed Impressions: Service Date/Time: July 19:37 - CONCLUSION: Normal examination. Clarence Gaston MD Chest X-Ray [id number]/19/171834 Signed Impressions: Service Date/Time: July 18:38 - CONCLUSION: No acute disease. Clarence Gaston MD Objective Remarks GENERAL: Resting comfortably. SKIN: Multiple skin tears over the skin surface. small abrasions noted on his knees, not signs of infection NECK: trachea midline. CARDIOVASCULAR: Regular rate and rhythm without murmurs RESPIRATORY: Breath sounds coarse bilaterally. No accessory muscle use. GASTROINTESTINAL: Abdomen soft, non-tender, nondistended. Active bowel sounds. MUSCULOSKELETAL: No edema. NEUROLOGICAL: Confused with hallucinations. Motor and sensory grossly within normal limits. Normal speech. Procedures Cystoscopy with placement of Muller catheter A/P Problem List: (1) Urinary retention ICD Code: R33.9 - Retention of urine, unspecified Assessment and Plan Acute urinary retention Ultrasound the kidneys showed: Small echogenic kidneys without obstruction; Sludge in the bladder. Urology evaluated the pt and he is s/p Cystoscopy and placement of 20 [place] catheter - Continue Muller.on flomax. urine does look somewhat bloody - urine cx growing corynebacterium >100,000 cfu/ml. ID consult placed. Discontinue rocephin IV and f/u repeat urine culture Weakness The patient mentioned he has been crawling on the floor prior to admission. - Physical therapy did evaluate the patient and recommends rehab. CM consulted for d/c planning - B12 and TSH wnl. HIV The patient states he takes his medications regularly. - on home medications. Hypertension Blood pressure well controlled at this time. - on home medications. Bipolar disorder Encephalopathy with increasing confusion and hallucination on chronic narcotic and benzodiazepines. Repeat CBC, CMP obtain ammonia level and RPR. Check MRI of the brain and EEG. Consult neurology. Chronic kidney disease. Improving renal indices on IV hydration Creatinine is stable at this time. - Avoid nephrotoxic agents. PPx: Heparin will be held may need LP Discharge Planning dc to rehab when ready. Needs workup for hallucinations Salo Rodarte MD Jul 24, 2017 13:14
[2017-07-24] MEDS: ALPRAZolam 0.5 MG TAB PO PRN (17:30)
--- NOTE | 2017-07-24 17:33 | PD.CONS ---
History of Present Illness Service Neurology Consult Requested By Medicine Reason for Consult Altered mental status/hallucinations Primary Care Physician Unknown History of Present Illness 66-year-old gentleman admitted to the hospital with generalized weakness and urinary retention. Neurology was consulted due to hallucinations, and according to the chart the patient has been hallucinating since approximately 3 days prior to admission. The patient is unable to give me any meaningful history during my evaluation, mostly speaking gibberish with few partial sentences intermittently. The chart is reviewed and patient has history of HIV since 1985 on antiretroviral therapy, bipolar disorder, chronic kidney disease, hepatitis A virus infection, hypertension, perirectal abscess. It is notable that the patient had CT of the brain on 07/19/2017 with no acute intracranial process. His vitamin B12 level was 194 and TSH was 1.720. His medications include among other things Remeron, Seroquel, trazodone, and Cymbalta. When questioned the patient denies any headache currently or nuchal rigidity. (Buddy Cardona) Review of Systems Constitutional: Negative except HPI Eye: Negative Except HPI ENMT: Negative except HPI Respiratory: Negative except HPI Cardiovascular: Negative except HPI Gastrointestinal: Negative except HPI Milad/Lymph: Negative except HPI Musculoskeletal: Negative except HPI Neurologic: Negative except HPI Psychiatric: Negative except HPI All other ROS: ROS reviewed as documented in chart (Buddy Cardona) Past Family Social History Allergies: Coded Allergies: emtricitabine (Unverified Adverse Reaction, Severe, AMS, N&V, H/A, LEG SWELLING, 07/20/17) tenofovir (Unverified Adverse Reaction, Severe, AMS, N&V, H/A, LEG SWELLING, 07/20/17) Past Medical History Bipolar disorder Hepatitis A virus HIV Hypertension Chronic kidney disease Past Surgical History Perirectal abscess incision and drainage Active Ordered Medications Current Medications Medications (Trade) Dose Ordered Sig/Calvin Route Start Time Stop Time Status Last Admin (NS Flush) 2 ml UNSCH PRN IV FLUSH 07/20/17 01:00 (NS Flush) 2 ml BID IV FLUSH 07/20/17 09:00 07/24/17 09:37 (Narcan Inj) 0.4 mg UNSCH PRN IV PUSH 07/20/17 01:00 (Roxicodone) 5 mg Q4H PRN PO 07/20/17 08:45 07/23/17 22:47 (Roxicodone) 10 mg Q4H PRN PO 07/20/17 08:45 07/24/17 05:26 (Sivan-Colace) 1 tab BID PO 07/20/17 09:00 07/24/17 09:40 (Flomax) 0.4 mg DAILY PO 07/21/17 09:00 07/24/17 09:40 (Periactin) 8 mg HS PO 07/20/17 21:00 07/23/17 22:46 (Prinivil) 10 mg DAILY PO 07/21/17 09:00 07/24/17 09:42 (Remeron) 45 mg HS PO 07/20/17 21:00 07/23/17 22:46 (Pravachol) 10 mg DAILY PO 07/21/17 09:00 07/24/17 09:42 (SEROquel) 300 mg HS PO 07/20/17 21:00 07/23/17 22:47 Patient Own Medication PT OWN MED: Darunavir-Cobicistat 800-15... DAILY PO 07/20/17 17:00 07/24/17 09:44 (Cymbalta Dr) 30 mg HS PO 07/20/17 21:00 07/23/17 22:47 (Desyrel) 150 mg HS PO 07/20/17 21:00 07/23/17 22:46 (Xanax) 0.5 mg Q8H PRN PO 07/20/17 16:45 07/22/17 22:42 (Heparin Inj) 5,000 units Q8HR SQ 07/20/17 22:00 Future Hold 07/24/17 05:26 (Ziagen) 600 mg DAILY PO 07/20/17 18:00 07/24/17 09:40 (Epivir) 300 mg DAILY PO 07/20/17 18:00 07/24/17 09:42 (Duoneb Neb) 1 ampule Q2HR NEB PRN NEB 07/22/17 03:15 Family History Unknown Social History Patient cannot elaborate today (Buddy Cardona) Exam I&O / VS Vital Signs Date Time Temp Pulse Resp B/P (MAP) Pulse Ox O2 Delivery O2 Flow Rate FiO2 07/24/17 16:15 98.9 80 18 104/66 (79) 97 07/24/17 13:38 92 Nasal Cannula 2.00 07/24/17 12:05 98.5 116 18 136/74 (94) 92 07/24/17 11:22 88 07/24/17 08:03 97.3 95 18 127/61 (83) 92 07/24/17 01:00 97.9 105 20 135/85 (102) 94 07/23/17 21:30 98.8 80 20 122/88 (99) 95 General: No acute distress Eye: PERRL, EOMI Respiratory: Non-labored respirations, Symmetrical expansion Cardiology: Normal rate Neurologic: Alert Exam Comments Alert, follows, intermittent fluent speech however the patient is tangential with broken sentences, speaking gibberish, no gross facial weakness noted, EOMI , no ptosis or nystagmus, OU 2-3 mm, tongue protruded midline, sensory grossly intact throughout the extremities, moves all extremities to gravity, plantar flexor, can touch chin to chest without difficulty, no drift (Buddy Cardona) Review/Management Diagnosis/Plan: (1) Encephalopathy acute ICD Codes: G93.40 - Encephalopathy, unspecified Status: Acute Plan: CT brain 07/19/2017 NA[facility]P MRI brain EEG Check ammonia level Patient is B12 deficient, supplement May need lumbar puncture (2) Hallucinations ICD Codes: R44.3 - Hallucinations, unspecified Plan: Chronicity difficult to establish, on Seroquel (3) Bipolar disorder ICD Codes: F31.9 - Bipolar disorder, unspecified Plan: Patient on multiple psychotropic medications Monitor for serotonin syndrome (4) HIV (human immunodeficiency virus infection) ICD Codes: B20 - Human immunodeficiency virus [HIV] disease Plan: Seen by infectious disease Continued on antiretrovirals (5) Urinary retention ICD Codes: R33.9 - Retention of urine, unspecified Status: Acute Plan: Patient catheterized Urology following (Buddy Cardona) Diagnosis/Plan: (1) Encephalopathy acute ICD Codes: G93.40 - Encephalopathy, unspecified Status: Acute Plan: CT brain 07/19/2017 NA[facility]P MRI brain EEG Check ammonia level Patient is B12 deficient, supplement iv thiamine iv acyclovir check nh3,crp,esr lp limit/reduce opiods reduce seroquel dose hydration watch ck's (2) Rhabdomyolysis ICD Codes: M62.82 - Rhabdomyolysis Status: Acute Daily Summary seen and examined. d/w PA. agree with above. partner came to see pt and states he is not at baseline. see's a psychiatrist outpatient and ID doctor. partner feels the pt has been taking his medications compliantly. noted to have elevated ck's, rhabdo, and arf. f/u eeg, labs, ck, replace b12. check csf and add iv acyclovir. partner gives verbal consent for lp (Miky Islas MD) Problem Qualifiers (1) Rhabdomyolysis: Qualified Codes: M62.82 - Rhabdomyolysis Buddy Cardona Jul 24, 2017 17:33 Miky Islas MD Jul 24, 2017 20:10
--- NOTE | 2017-07-24 18:39 | RADRPT ---
EXAM DATE/TIME: 07/24/2017 17:41 [facility] COMPARISON: No previous studies available for comparison. INDICATIONS : HIV. Inflammation. MEDICAL HISTORY : HIV. Hepatitis A. Leukemia. HTN. CHF. VT. DVT. Lymphoma. SURGICAL HISTORY : Left knee. ENCOUNTER: Subsequent ACUITY: 1 day PAIN SCORE: 0/10 LOCATION: cranial TECHNIQUE: Multiplanar, multisequence MRI of the brain was performed without contrast. FINDINGS: CEREBRUM: Mild diffuse cerebral volume loss. The ventricles are normal for age. No evidence of midline shift, mass lesion, hemorrhage or acute infarction. No extraaxial fluid collections are seen. The pituitar y gland and suprasellar cistern are normal in configuration. WHITE MATTER: Minimal periventricular white matter T2 prolongation. POSTERIOR FOSSA: The cerebellum and brainstem are intact. The 4th ventricle is midline. The cerebellopontine angle is unremarkable. The cerebellar tonsils are normal in position. DIFFUSION IMAGING: No focal areas of restricted diffusion are seen. No evidence of acute infarction. EXTRACRANIAL: The visualized portions of the orbits and paranasal sinuses are unremarkable. CONCLUSION: 1. Senescent changes with mild small vessel ischemic white matter demyelination. 2. Otherwise, no acute abnormality. Morgan Gauthier MD on July 24, 2017 at 18:28 Board Certified Radiologist. This report was verified electronically.
[2017-07-24] MEDS ORDERED: CYANOCOBALAMIN 1000 MCG/ML VIAL IM SCH (18:45)
[2017-07-24 23:10] LABS: C-REACTIVE PROTEIN 11.9 MG/DL (0.00-0.30)
[2017-07-24] MEDS: QUEtiapine FUMARATE 100 MG TAB PO SCH (23:18)
[2017-07-24] MEDS: ACYCLOVIR INJ 900 MG in SODIUM CHLORIDE 0.9% INJ 150 ML IV SCH (23:18)
[2017-07-24] MEDS: traZODone HCL 50 MG TAB PO SCH (23:19)
[2017-07-24] MEDS: MIRTAZAPINE 15 MG TAB PO SCH (23:19)
[2017-07-24] MEDS: CYANOCOBALAMIN 1000 MCG/ML VIAL IM SCH (23:19)
[2017-07-24] MEDS: CYPROHEPTADINE HCL 4 MG TAB PO SCH (23:20)
[2017-07-24] MEDS: DULoxetine HCl DR 30 MG CAP PO SCH (23:21)
[2017-07-24] MEDS: THIAMINE INJ 100 MG in SODIUM CHLORIDE 0.9% INJ 100 ML IV SCH (23:23)
[2017-07-25] VITALS (8 sets, daily range): BP systolic 100–144; BP diastolic 59–63; PULSE 76–106; RESP 18–24; TEMP 97.5–99.8; O2SAT 90–97
[2017-07-25] MEDS: ALPRAZolam 0.5 MG TAB PO PRN ×3 (04:20→22:07)
[2017-07-25] MEDS: ACYCLOVIR INJ 900 MG in SODIUM CHLORIDE 0.9% INJ 150 ML IV SCH ×3 (06:21→22:06)
--- NOTE | 2017-07-25 07:16 | MG ---
cc: KEMI HERNÁNDEZ M.D. Lab No: 18-____ Date: 07/24/2017 Age: 66 Sex: M Race: __ REQUESTING PHYSICIAN Dr. Rodarte INDICATIONS An EEG was obtained on this 66-year-old patient being evaluated for constant for dizziness and weakness. MEDICATIONS Include: 1. Seroquel 2. Remeron 3. Cymbalta 4. Desyrel DESCRIPTION The patient is often moving during the study with a lot of eye movements. There are some 8-9/second alpha rhythms posteriorly. There is beta activity of low amplitude maximum centrally and frontally. There are a modest amount of some intermixed theta activity. No distinct lateralizing features. No paroxysmal discharges. Photic stimulation was unremarkable. INTERPRETATION This EEG shows possible mild slowing suggestive of a mild diffuse disturbance of cerebral function. No epileptiform features present. No lateralizing features present. MD JOSE Serna/FARIDA /6:31 AM /6:57 AM
[2017-07-25] MEDS: LISINOPRIL 10 MG TAB PO SCH (09:00)
[2017-07-25 09:20] LABS: AUTOMATED NEUTROPHIL # 2.9 TH/MM3 (1.8-7.7); BASOPHIL % 0.2 % (0.0-2.0); EOSINOPHIL % 0.1 % (0.0-4.0); HEMATOCRIT 40.2 % (39.0-51.0); HEMOGLOBIN 14.2 GM/DL (13.0-17.0); LYMPH % 20.4 % (9.0-44.0); LYMPHOCYTE # 0.9 TH/MM3 (1.0-4.8); MEAN CELL VOLUME 99.9 FL (80.0-100.0); MEAN CORPUSCULAR HEMOGLOBIN 35.2 PG (27.0-34.0); MEAN CORPUSCULAR HGB CONC 35.2 % (32.0-36.0); MEAN PLATELET VOLUME 7.1 FL (7.0-11.0); MONO % 12.6 % (0.0-8.0); MONOCYTE # 0.5 TH/MM3 (0-0.9); NEUT % 66.7 % (16.0-70.0); PLATELET COUNT 120 TH/MM3 (150-450); RED BLOOD COUNT 4.02 MIL/MM3 (4.50-5.90); RED CELL DISTRIBUTION WIDTH 14.3 % (11.6-17.2); WHITE BLOOD COUNT 4.4 TH/MM3 (4.0-11.0)
--- NOTE | 2017-07-25 09:38 | HHI.PR ---
Review/Management Diagnosis/Plan: (1) Encephalopathy acute ICD Codes: G93.40 - Encephalopathy, unspecified Status: Acute Plan: CT brain 07/19/2017 NA[facility]P MRI brain B12 deficient, supplement iv thiamine iv acyclovir recs mental status better this am. iv thiamine/acyclovir better lp-pending. pt agrees to procedure. s/b d/w pt limit/reduce opiods reduce seroquel dose hydration d/w medical (2) Rhabdomyolysis ICD Codes: M62.82 - Rhabdomyolysis Status: Acute (3) HIV (human immunodeficiency virus infection) ICD Codes: B20 - Human immunodeficiency virus [HIV] disease Status: Chronic Plan: Seen by infectious disease Continued on antiretrovirals (4) Bipolar disorder ICD Codes: F31.9 - Bipolar disorder, unspecified Status: Chronic Plan: Patient on multiple psychotropic medications Monitor for serotonin syndrome Subjective Subjective Comments No acute events reported No headache No chest pain No dyspnea Active Medications Current Medications Medications (Trade) Dose Ordered Sig/Calvin Route Start Time Stop Time Status Last Admin (NS Flush) 2 ml UNSCH PRN IV FLUSH 07/20/17 01:00 (NS Flush) 2 ml BID IV FLUSH 07/20/17 09:00 07/24/17 23:18 (Narcan Inj) 0.4 mg UNSCH PRN IV PUSH 07/20/17 01:00 (Roxicodone) 5 mg Q4H PRN PO 07/20/17 08:45 07/24/17 23:20 (Roxicodone) 10 mg Q4H PRN PO 07/20/17 08:45 07/25/17 04:21 (Sivan-Colace) 1 tab BID PO 07/20/17 09:00 07/24/17 23:20 (Flomax) 0.4 mg DAILY PO 07/21/17 09:00 07/24/17 09:40 (Periactin) 8 mg HS PO 07/20/17 21:00 07/24/17 23:20 (Prinivil) 10 mg DAILY PO 07/21/17 09:00 07/24/17 09:42 (Remeron) 45 mg HS PO 07/20/17 21:00 07/24/17 23:19 (Pravachol) 10 mg DAILY PO 07/21/17 09:00 07/24/17 09:42 Patient Own Medication PT OWN MED: Darunavir-Cobicistat 800-15... DAILY PO 07/20/17 17:00 07/24/17 09:44 (Cymbalta Dr) 30 mg HS PO 07/20/17 21:00 07/24/17 23:21 (Desyrel) 150 mg HS PO 07/20/17 21:00 07/24/17 23:19 (Xanax) 0.5 mg Q8H PRN PO 07/20/17 16:45 07/25/17 04:20 (Heparin Inj) 5,000 units Q8HR SQ 07/20/17 22:00 Future Hold 07/24/17 05:26 (Ziagen) 600 mg DAILY PO 07/20/17 18:00 07/24/17 09:40 (Epivir) 300 mg DAILY PO 07/20/17 18:00 07/24/17 09:42 (Duoneb Neb) 1 ampule Q2HR NEB PRN NEB 07/22/17 03:15 (Vitamin B12 Inj) 1,000 mcg Q24H IM 07/24/17 20:00 07/30/17 20:01 07/24/17 23:19 (Vitamin B12 Inj) 1,000 mcg Q7D IM 08/06/17 20:00 08/27/17 20:01 (Vitamin B12 Inj) 1,000 mcg Q30D IM 09/27/17 20:00 Acyclovir Sodium 900 mg/Sodium Chloride 150 ml @ 150 mls/hr Q8H IV 07/24/17 22:00 07/25/17 06:21 (SEROquel) 100 mg HS PO 07/24/17 21:00 07/24/17 23:18 Thiamine HCl 100 mg/Sodium Chloride 101 ml @ 101 mls/hr DAILY IV 07/24/17 21:00 07/24/17 23:23 Allergies Allergies Coded Allergies emtricitabine (Unverified Adverse Reaction, Severe, AMS, N&V, H/A, LEG SWELLING, 07/20/17) tenofovir (Unverified Adverse Reaction, Severe, AMS, N&V, H/A, LEG SWELLING, ) Review of Systems Constitutional: Negative except HPI Eye: Negative Except HPI ENMT: Negative except HPI Respiratory: Negative except HPI Cardiovascular: Negative except HPI Gastrointestinal: Negative except HPI Milad/Lymph: Negative except HPI Musculoskeletal: Negative except HPI Neurologic: Negative except HPI Psychiatric: Negative except HPI All other ROS: ROS reviewed as documented in chart Exam I&O / VS Vital Signs Date Time Temp Pulse Resp B/P (MAP) Pulse Ox O2 Delivery O2 Flow Rate FiO2 07/25/17 08:00 97.5 86 20 118/62 (80) 95 07/25/17 04:00 99.0 97 24 131/63 (85) 93 07/25/17 00:00 99.8 106 24 144/63 (90) 93 07/24/17 20:00 99.3 81 24 129/69 (89) 95 07/24/17 18:17 78 07/24/17 16:15 98.9 80 18 104/66 (79) 97 07/24/17 13:38 92 Nasal Cannula 2.00 07/24/17 12:05 98.5 116 18 136/74 (94) 92 07/24/17 11:22 88 General: No acute distress Eye: PERRL, EOMI Respiratory: Non-labored respirations, Symmetrical expansion Cardiology: Normal rate Neurologic: Alert Psychiatric: Cooperative Exam Comments alert, ox 1-2, follows, more attentive this am but can get distracted, eomi, face sym, vff, able to levine to gravity 4/5, no clonus, planterflexor Objective Micro and Labs Laboratory Tests Test 07/24/17 22:14 07/25/17 08:15 Ammonia 24 Total Creatine Kinase 596 Creatine Kinase MB 2.7 Creatine Kinase MB % 0.5 C-Reactive Protein 11.90 White Blood Count 4.4 Red Blood Count 4.02 Hemoglobin 14.2 Hematocrit 40.2 Mean Corpuscular Volume 99.9 Mean Corpuscular Hemoglobin 35.2 Mean Corpuscular Hemoglobin Concent 35.2 Red Cell Distribution Width 14.3 Platelet Count 120 Mean Platelet Volume 7.1 Neutrophils (%) (Auto) 66.7 Lymphocytes (%) (Auto) 20.4 Monocytes (%) (Auto) 12.6 Eosinophils (%) (Auto) 0.1 Basophils (%) (Auto) 0.2 Neutrophils # (Auto) 2.9 Lymphocytes # (Auto) 0.9 Monocytes # (Auto) 0.5 Eosinophils # (Auto) 0.0 Basophils # (Auto) 0.0 CBC Comment DIFF FINAL Differential Comment Date/Time Source Procedure Growth Status 07/23/17 14:20 Urine Catheterized Urine Urine Culture - Preliminary NO GROWTH IN 24 HOURS. Resulted Problem Qualifiers (1) Rhabdomyolysis: Qualified Codes: M62.82 - Rhabdomyolysis Miky Islas MD Jul 25, 2017 09:38
[2017-07-25 09:49] LABS: ALBUMIN 2.4 GM/DL (3.4-5.0); AST (GOT) 50 U/L (15-37); BICARBONATE 27.2 MEQ/L (21.0-32.0); BLOOD UREA NITROGEN 13 MG/DL (7-18); CALCIUM 7.7 MG/DL (8.5-10.1); CREATININE 0.87 MG/DL (0.60-1.30); GLOMERULAR FILTRATION RATE 88 ML/MIN (>89); GLUCOSE,RANDOM 72 MG/DL (74-106)
[2017-07-25 09:51] LABS: ALT (GPT) 46 U/L (12-78)
[2017-07-25 09:53] LABS: ALKALINE PHOSPHATASE 79 U/L (45-117); TOTAL BILIRUBIN ADULT 0.4 MG/DL (0.2-1.0); TOTAL PROTEIN 5.9 GM/DL (6.4-8.2)
[2017-07-25 09:57] LABS: CHLORIDE 103 MEQ/L (98-107); SODIUM (NA) 138 MEQ/L (136-145)
[2017-07-25] MEDS: PRAVASTATIN SOD 10 MG TAB PO SCH (10:03)
[2017-07-25] MEDS: ABACAVIR SULFATE 300 MG TAB PO SCH (10:04)
[2017-07-25] MEDS: TAMSULOSIN HCL 0.4 MG CAP PO SCH (10:04)
[2017-07-25] MEDS: DOCUSATE SODIUM 50 MG/SENNA 8.6 MG TAB PO SCH ×2 (10:05→22:07)
[2017-07-25] MEDS: THIAMINE INJ 100 MG in SODIUM CHLORIDE 0.9% INJ 100 ML IV SCH (10:05)
[2017-07-25] MEDS: SODIUM CHLORIDE 0.9% FLUSH 10 ML FLUSH IV FLUSH SCH ×2 (10:06→22:08)
[2017-07-25] MEDS: DARUNAVIR COBICISTAT PO SCH (10:14)
--- NOTE | 2017-07-25 10:33 | HHI.PR ---
Subjective Remarks Follow-up encephalopathy. Patient remains confused denies hallucinations. He is oriented 2 not to time. Discussed with neurology and nursing staff. Also discussed with partner, this is not his baseline. Per patient's wishes per partner, he is a DNR Objective Vitals Vital Signs Date Time Temp Pulse Resp B/P (MAP) Pulse Ox O2 Delivery O2 Flow Rate FiO2 07/25/17 08:00 97.5 86 20 118/62 (80) 95 07/25/17 04:00 99.0 97 24 131/63 (85) 93 07/25/17 00:00 99.8 106 24 144/63 (90) 93 07/24/17 20:00 99.3 81 24 129/69 (89) 95 07/24/17 18:17 78 07/24/17 16:15 98.9 80 18 104/66 (79) 97 07/24/17 13:38 92 Nasal Cannula 2.00 07/24/17 12:05 98.5 116 18 136/74 (94) 92 07/24/17 11:22 88 I/O 07/24/17 07/24/17 07/24/17 07/25/17 07/25/17 07/25/17 07:00 15:00 23:00 07:00 15:00 23:00 Intake Total 1000 ml Output Total 1500 ml 1000 ml 400 ml Balance -500 ml -1000 ml -400 ml Intake Oral 1000 ml Output Urine Total 1500 ml 1000 ml 400 ml # Bowel Movements 0 0 0 Result Diagram: 07/25/17 0815 07/25/17 0815 Imaging Last Impressions Lumbar Puncture Fluoroscopy 07/25/17 0000 Signed Impressions: Service Date/Time: Tuesday, July 25, 2017 11:13 - CONCLUSION: Uncomplicated fluoroscopically guided lumbar puncture with pressures as above. Arron Tyler MD Brain MRI 07/24/17 0000 Signed Impressions: Service Date/Time: Monday, July 24, 2017 17:41 - CONCLUSION: 1. Senescent changes with mild small vessel ischemic white matter demyelination. 2. Otherwise, no acute abnormality. Morgan Gauthier MD Knee X-Ray 07/22/17 0000 Signed Impressions: Service Date/Time: Saturday, July 22, 2017 10:27 - CONCLUSION: No evidence of acute bony injury. Surgical findings related to ligature fixation of the patella with associated hypertrophic ossification about the patella.. Natanael Monge MD Renal Ultrasound 07/20/17 0000 Signed Impressions: Service Date/Time: Thursday, July 20, 2017 08:58 - CONCLUSION: 1. Small echogenic kidneys without obstruction 2. Sludge in the bladder. Post void residual suspected. Vince Mackay MD FACR Head CT [id number] Signed Impressions: Service Date/Time: July 19:37 - CONCLUSION: Normal examination. Clarence Gaston MD Chest X-Ray [id number] Signed Impressions: Service Date/Time: July 18:38 - CONCLUSION: No acute disease. Clarence Gaston MD Objective Remarks GENERAL: Resting comfortably. SKIN: Multiple skin tears over the skin surface. small abrasions noted on his knees, not signs of infection NECK: trachea midline. CARDIOVASCULAR: Regular rate and rhythm without murmurs RESPIRATORY: Breath sounds coarse bilaterally. No accessory muscle use. GASTROINTESTINAL: Abdomen soft, non-tender, nondistended. Active bowel sounds. MUSCULOSKELETAL: No edema. NEUROLOGICAL: Confused. Motor and sensory grossly within normal limits. Normal speech. Procedures Cystoscopy with placement of Muller catheter Lumbar puncture A/P Problem List: (1) Urinary retention ICD Code: R33.9 - Retention of urine, unspecified Status: Acute Assessment and Plan Encephalopathy, etiology to be determined. Status post LP, follow-up studies. Follow-up pending cervical spine MRI. Agree to decrease benzos and narcotics. Seroquel also has been decreased. Neurology following Acute urinary retention Ultrasound the kidneys showed: Small echogenic kidneys without obstruction; Sludge in the bladder. Urology evaluated the pt and he is s/p Cystoscopy and placement of 20 [place] catheter - Continue Muller.on flomax. urine does look somewhat bloody - urine cx growing corynebacterium >100,000 cfu/ml. ID consult placed. Discontinue rocephin IV and f/u repeat urine culture Weakness The patient mentioned he has been crawling on the floor prior to admission. - Physical therapy did evaluate the patient and recommends rehab. CM consulted for d/c planning - B12 and TSH wnl. HIV The patient states he takes his medications regularly. - on home medications. Hypertension Blood pressure well controlled at this time. - on home medications. Chronic kidney disease. Improving renal indices on IV hydration Creatinine is stable at this time. - Avoid nephrotoxic agents. FE> PO and IVF Wd care PPx: Heparin held 2/2 LP today Discharge Planning dc to rehab when ready. Needs workup for hallucinations Salo Rodarte MD Jul 25, 2017 10:33
[2017-07-25] MEDS ORDERED: LORazepam 2 MG/ML VIAL IV PUSH PRN (10:45)
[2017-07-25] MEDS ORDERED: LORazepam 2 MG/ML VIAL IV PUSH ONE (10:45)
--- NOTE | 2017-07-25 12:07 | PD.RAD ---
Post Procedure Progress Note Procedure Date: Jul 25, 2017 Supervising Radiologist: Arron Tyler Plan of Activity See PACS Report for procedural detail/treatment Spinal Procedure Lumbar Puncture L3-L4 Fluid Removal (CCs): 8 Fluid Description: Arron Vuong MD Jul 25, 2017 12:07
--- NOTE | 2017-07-25 12:26 | PD.WCN.NOT ---
Wound Consult Description: Wound consult ordered by for left elbow and left knee Communicated with: Gardenia RN [place], Recommendation: 1) Encourage patient to reposition every 2 hours for comfort and offloading. 2) Cleanse open areas with normal saline pat dry skin prep periwound. 3) Apply Santyl 2mm thick to Left elbow abrasion and cover with nonadhesive gauze secure with rolled gauze tape change daily 4) Right knee apply single layer Xeroform cut to fit wound base and cover with dry dressing change every 3 days or as needed for dislodgement/exudate. 5) Reconsult wound care if wounds worsen. Additional Information: Patient was seen today on by ghost writer and Gardenia BANKS.Patient was returning to room upon writers arrival.Alert but very confused unable to state name or date. Dressing removed from L elbow to reveal partial/full thickness trauma wound.~6.0cm x ~8.0cm wound base is 80% red tissue with ~20% adhered yellow slough.Scant serosanguineous drainage noted with no odor present.Wound cleansed with normal saline pat dry Xeroform single layer applied to wound base and covered with dry dressing till Santyl available.Left knee dressing removed to reveal superficial trauma wound with 100% red tissue wound base scant sanguis drainage noted with no odor.Wound cleansed with normal saline pat dry skin prep applied to periwound and all intact scabs surrounding area .Xeroform single layer applied to open area and covered with dry dressing.Dressings signed and dated .Patient tolerated wound care well. Peter Guerrero [facility] Jul 25, 2017 12:26
[2017-07-25 12:55] LABS: CSF LYMPHOCYTES 100 %; CSF NEUTROPHILS 0 %; RBC TUBE #1 0 /MM3; SUPERNATE COLOR TUBE #1 CLEAR (CLEAR); WBC TUBE #1 1 /MM3 (0-10)
[2017-07-25 12:56] LABS: CSF LYMPHOCYTES 0 %; CSF NEUTROPHILS 0 %; RBC TUBE #4 1 /MM3; WBC TUBE #4 0 /MM3 (0-10)
[2017-07-25] MEDS: COLLAGENASE OINT 30 GM TUBE TOPICAL SCH (13:30)
--- NOTE | 2017-07-25 13:50 | RADRPT ---
EXAM DATE/TIME: 07/25/2017 11:13 [place] COMPARISON: No previous studies available for comparison. INDICATIONS : Patient asmitted to hospital for general weakness and urinary retention.Patient has been hallucinatin g with AMS. MEDICAL HISTORY : 1. HIV 2. bipolar 3. Hep A 4. HTN 5. CKD SURGICAL HISTORY : 1. Perirectal abscess incision and drainage ENCOUNTER: Initial ACUITY: 1 week PAIN SCORE: 0/10 LUMBAR PUNCTURE TIME: 1033 hours FLUORO TIME: 0.9 minutes IMAGE SERIES: 1 ACCESS LEVEL: L2-3 OPENING PRESSURE: 19 cm of water Not requested. FLUID: 8 cc of clear CSF was collected and sent to the laboratory for analysis. PROCEDURE : 1. Fluoroscopic guided lumbar puncture. 2. Recording of opening pressure. The risks, benefits and alternatives to the procedure were explained and verbal and written consent w as obtained. The site was prepped in sterile fashion. Full sterile technique was used, including ca p, mask, sterile gloves and gown and a large sterile sheet. Hand hygiene and 2% chlorhexidine and/or betadine/alcohol prep was utilized per protocol for cutaneous antisepsis. The skin and subcutaneous tissues were infiltrated with local anesthetic solution. With fluoroscopic guidance the lumbar thecal sac was punctured at the above level described above and the opening pressure was recorded. The above described fluid was removed without difficulty. The patient tolerated the procedure well and there were no complications. CONCLUSION: Uncomplicated fluoroscopically guided lumbar puncture with pressures as above. Arron Tyler MD on July 25, 2017 at 13:48 Board Certified Radiologist. This report was verified electronically.
[2017-07-25] MEDS: POTASSIUM CHLORIDE INJ 30 MEQ in DEXT 5%-NACL 0.9% 1000 ML INJ 1,000 ML IV SCH (14:20)
[2017-07-25] MEDS: CLOTRIMAZOLE 10 MG TROCHE BUCCAL SCH ×3 (14:23→22:07)
[2017-07-25] MEDS ORDERED: PILL SPLITTER OTHER PRN (16:45)
[2017-07-25] MEDS: MIRTAZAPINE 15 MG TAB PO SCH (22:06)
[2017-07-25] MEDS: traZODone HCL 50 MG TAB PO SCH (22:06)
[2017-07-25] MEDS: CYANOCOBALAMIN 1000 MCG/ML VIAL IM SCH (22:07)
[2017-07-25] MEDS: CYPROHEPTADINE HCL 4 MG TAB PO SCH (22:07)
[2017-07-25] MEDS: QUEtiapine FUMARATE 100 MG TAB PO SCH (22:08)
[2017-07-25] MEDS: DULoxetine HCl DR 30 MG CAP PO SCH (22:44)
[2017-07-26] VITALS (11 sets, daily range): BP systolic 103–146; BP diastolic 51–73; PULSE 64–94; RESP 18–20; TEMP 98.1–99.4; O2SAT 92–96
[2017-07-26] MEDS: ALPRAZolam 0.5 MG TAB PO PRN (06:05)
[2017-07-26] MEDS: ACYCLOVIR INJ 900 MG in SODIUM CHLORIDE 0.9% INJ 150 ML IV SCH ×3 (06:05→21:30)
[2017-07-26] MEDS: CLOTRIMAZOLE 10 MG TROCHE BUCCAL SCH ×5 (06:06→21:29)
[2017-07-26 07:29] LABS: BICARBONATE 26.1 MEQ/L (21.0-32.0); CALCIUM 7.7 MG/DL (8.5-10.1); CREATININE 0.81 MG/DL (0.60-1.30); MAGNESIUM 2.2 MG/DL (1.5-2.5)
[2017-07-26] MEDS: SODIUM CHLORIDE 0.9% FLUSH 10 ML FLUSH IV FLUSH SCH ×2 (08:30→21:00)
[2017-07-26] MEDS: ABACAVIR SULFATE 300 MG TAB PO SCH (08:32)
[2017-07-26] MEDS: PRAVASTATIN SOD 10 MG TAB PO SCH (08:32)
[2017-07-26] MEDS: TAMSULOSIN HCL 0.4 MG CAP PO SCH (08:32)
[2017-07-26] MEDS: DOCUSATE SODIUM 50 MG/SENNA 8.6 MG TAB PO SCH ×2 (08:32→21:29)
[2017-07-26] MEDS: DARUNAVIR COBICISTAT PO SCH (08:33)
[2017-07-26] MEDS: THIAMINE INJ 100 MG in SODIUM CHLORIDE 0.9% INJ 100 ML IV SCH (08:35)
[2017-07-26] MEDS: COLLAGENASE OINT 30 GM TUBE TOPICAL SCH (08:37)
[2017-07-26] MEDS: LISINOPRIL 10 MG TAB PO SCH (08:38)
--- NOTE | 2017-07-26 09:33 | HHI.PR ---
Review/Management Diagnosis/Plan: (1) Encephalopathy acute ICD Codes: G93.40 - Encephalopathy, unspecified Status: Acute Plan: CT brain 07/19/2017 [facility] MRI brain B12 deficient, supplement iv thiamine iv acyclovir ? hiv encephalopathy csf- wbc 0. protein slightly elevated 60 gram stain negative recs csf/eeg reviewed continue iv acyclovir until hsv pcr returns limit/reduce opiods may need psych eval. has been on antipsychotics and long psych hx f/u rpr/gifty d/w medical (2) Rhabdomyolysis ICD Codes: M62.82 - Rhabdomyolysis Status: Acute (3) HIV (human immunodeficiency virus infection) ICD Codes: B20 - Human immunodeficiency virus [HIV] disease Status: Chronic Plan: Seen by infectious disease Continued on antiretrovirals (4) Bipolar disorder ICD Codes: F31.9 - Bipolar disorder, unspecified Status: Chronic Plan: Patient on multiple psychotropic medications Monitor for serotonin syndrome Subjective Subjective Comments No acute events reported No headache No chest pain No dyspnea Active Medications Current Medications Medications (Trade) Dose Ordered Sig/Calvin Route Start Time Stop Time Status Last Admin (NS Flush) 2 ml UNSCH PRN IV FLUSH 07/20/17 01:00 (NS Flush) 2 ml BID IV FLUSH 07/20/17 09:00 07/25/17 22:08 (Narcan Inj) 0.4 mg UNSCH PRN IV PUSH 07/20/17 01:00 (Sivan-Colace) 1 tab BID PO 07/20/17 09:00 07/26/17 08:32 (Flomax) 0.4 mg DAILY PO 07/21/17 09:00 07/26/17 08:32 (Periactin) 8 mg HS PO 07/20/17 21:00 07/25/17 22:07 (Prinivil) 10 mg DAILY PO 07/21/17 09:00 07/25/17 09:00 (Remeron) 45 mg HS PO 07/20/17 21:00 07/25/17 22:06 (Pravachol) 10 mg DAILY PO 07/21/17 09:00 07/26/17 08:32 Patient Own Medication PT OWN MED: Darunavir-Cobicistat 800-15... DAILY PO 07/20/17 17:00 07/26/17 08:33 (Cymbalta Dr) 30 mg HS PO 07/20/17 21:00 07/25/17 22:44 (Desyrel) 150 mg HS PO 07/20/17 21:00 07/25/17 22:06 (Xanax) 0.5 mg Q8H PRN PO 07/20/17 16:45 07/26/17 06:05 (Heparin Inj) 5,000 units Q8HR SQ 07/20/17 22:00 Future Hold 07/24/17 05:26 (Ziagen) 600 mg DAILY PO 07/20/17 18:00 07/26/17 08:32 (Epivir) 300 mg DAILY PO 07/20/17 18:00 07/26/17 08:33 (Duoneb Neb) 1 ampule Q2HR NEB PRN NEB 07/22/17 03:15 (Vitamin B12 Inj) 1,000 mcg Q24H IM 07/24/17 20:00 07/30/17 20:01 07/25/17 22:07 (Vitamin B12 Inj) 1,000 mcg Q7D IM 08/06/17 20:00 08/27/17 20:01 (Vitamin B12 Inj) 1,000 mcg Q30D IM 09/27/17 20:00 Acyclovir Sodium 900 mg/Sodium Chloride 150 ml @ 150 mls/hr Q8H IV 07/24/17 22:00 07/26/17 06:05 (SEROquel) 100 mg HS PO 07/24/17 21:00 07/25/17 22:08 Thiamine HCl 100 mg/Sodium Chloride 101 ml @ 101 mls/hr DAILY IV 07/24/17 21:00 07/26/17 08:35 Potassium Chloride 30 meq/ Dextrose/Sodium Chloride 1,015 ml @ 70 mls/hr [id number] IV 07/25/17 13:00 07/25/17 14:20 (Mycelex) 10 mg 5 TIMES A DAY BUCCAL 07/25/17 14:00 08/08/17 13:59 07/26/17 09:27 (Santyl Oint) 1 applic DAILY TOPICAL 07/25/17 13:30 07/26/17 08:37 (Roxicodone) 2.5 mg Q4H PRN PO 07/25/17 16:45 07/26/17 06:06 (Pill Splitter) 1 ea UNSCH PRN OTHER 07/25/17 16:45 Allergies Allergies Coded Allergies emtricitabine (Unverified Adverse Reaction, Severe, AMS, N&V, H/A, LEG SWELLING, 07/20/17) tenofovir (Unverified Adverse Reaction, Severe, AMS, N&V, H/A, LEG SWELLING, ) Review of Systems Constitutional: Negative except HPI Eye: Negative Except HPI ENMT: Negative except HPI Respiratory: Negative except HPI Cardiovascular: Negative except HPI Gastrointestinal: Negative except HPI Milad/Lymph: Negative except HPI Musculoskeletal: Negative except HPI Neurologic: Negative except HPI Psychiatric: Negative except HPI All other ROS: ROS reviewed as documented in chart Exam I&O / VS 07/26/17 07/26/17 07/27/17 15:00 23:00 07:00 # Bowel Movements 1 Vital Signs Date Time Temp Pulse Resp B/P (MAP) Pulse Ox O2 Delivery O2 Flow Rate FiO2 07/26/17 08:43 86 07/26/17 07:47 99.4 88 18 103/51 (68) 92 07/26/17 05:31 98.9 94 18 146/73 (97) 95 07/26/17 01:11 98.1 18 108/61 (77) 95 07/25/17 21:10 97.8 81 18 120/62 (81) 94 07/25/17 17:48 95 Nasal Cannula 2.00 07/25/17 15:39 99.1 96 20 127/59 (81) 90 07/25/17 15:27 82 07/25/17 12:10 95 Nasal Cannula 2.00 General: No acute distress Eye: PERRL, EOMI Respiratory: Non-labored respirations, Symmetrical expansion Cardiology: Normal rate Neurologic: Alert Psychiatric: Cooperative Exam Comments alert, ox 1-2, follows, having visual hallucinations, eomi, face sym, vff, able to levine to gravity 4/5, no clonus, planterflexor Objective Micro and Labs Laboratory Tests Test 07/25/17 10:33 07/26/17 05:45 CSF Volume (Tube 1) 1.0 CSF Supernatant Color (tube 1) CLEAR CSF Gross Blood (Tube 1) 0 CSF WBC (Tube 1) 1 CSF RBC (Tube 1) 0 CSF Volume (Tube 2) 2.8 CSF Supernatant Color (tube 2) CLEAR CSF Gross Blood (Tube 2) 0 CSF Volume (Tube 3) 2.0 CSF Supernatant Color (tube 3) CLEAR CSF Gross Blood (Tube 3) 0 CSF Volume (Tube 4) 2.0 CSF Supernatant Color (tube 4) CLEAR CSF Gross Blood (Tube 4) 0 CSF WBC (Tube 4) 0 CSF RBC (Tube 4) 1 CSF Neutrophils 0 CSF Lymphocytes 0 CSF Glucose 49 CSF Total Protein 60.0 Blood Urea Nitrogen 12 Creatinine 0.81 Random Glucose 85 Calcium Level 7.7 Magnesium Level 2.2 Sodium Level 137 Potassium Level 3.3 Chloride Level 102 Carbon Dioxide Level 26.1 Anion Gap 9 Estimat Glomerular Filtration Rate 95 Date/Time Source Procedure Growth Status 07/25/17 10:33 Cerebral Spinal Fluid Lumbar Puncture Gram Stain - Final Resulted 07/25/17 10:33 Cerebral Spinal Fluid Lumbar Puncture CSF Culture - Preliminary NO GROWTH IN 24 HOURS. Resulted 07/23/17 14:20 Urine Catheterized Urine Urine Culture - Final NO GROWTH IN 48 HOURS. Complete Problem Qualifiers (1) Rhabdomyolysis: Qualified Codes: M62.82 - Rhabdomyolysis Miky Islas MD Jul 26, 2017 09:33
[2017-07-26] MEDS ORDERED: LORazepam 2 MG/ML VIAL IV PUSH ONE (12:00)
[2017-07-26] MEDS ORDERED: LORazepam 2 MG/ML VIAL IV PUSH PRN (12:00)
--- NOTE | 2017-07-26 12:03 | HHI.PR ---
Subjective Remarks Follow-up encephalopathy. Patient has no complaints remains confused but no agitation. Discuss with neurology and nursing staff. Objective Vitals Vital Signs Date Time Temp Pulse Resp B/P (MAP) Pulse Ox O2 Delivery O2 Flow Rate FiO2 07/26/17 10:18 96 Nasal Cannula 2.00 07/26/17 08:43 86 07/26/17 07:47 99.4 88 18 103/51 (68) 92 07/26/17 05:31 98.9 94 18 146/73 (97) 95 07/26/17 01:11 98.1 18 108/61 (77) 95 07/25/17 21:10 97.8 81 18 120/62 (81) 94 07/25/17 17:48 95 Nasal Cannula 2.00 07/25/17 15:39 99.1 96 20 127/59 (81) 90 07/25/17 15:27 82 07/25/17 12:10 95 Nasal Cannula 2.00 I/O 07/25/17 07/25/17 07/25/17 07/26/17 07/26/17 07/26/17 07:00 15:00 23:00 07:00 15:00 23:00 Intake Total 101 ml Output Total 400 ml 250 ml 600 ml Balance -400 ml -250 ml -600 ml 101 ml IV Total 101 ml Output Urine Total 400 ml 250 ml 600 ml # Bowel Movements 0 1 Result Diagram: 07/25/17 0815 07/26/17 0545 Objective Remarks GENERAL: Resting comfortably. SKIN: Multiple skin tears over the skin surface. small abrasions noted on his knees, not signs of infection NECK: trachea midline. CARDIOVASCULAR: Regular rate and rhythm without murmurs RESPIRATORY: Breath sounds coarse bilaterally. No accessory muscle use. GASTROINTESTINAL: Abdomen soft, non-tender, nondistended. Active bowel sounds. MUSCULOSKELETAL: No edema. NEUROLOGICAL: Confused. Motor and sensory grossly within normal limits. Normal speech. Procedures Cystoscopy with placement of Muller catheter Lumbar puncture A/P Problem List: (1) Urinary retention ICD Code: R33.9 - Retention of urine, unspecified Status: Acute Assessment and Plan Encephalopathy, etiology to be determined likely HIV related. Status post LP, follow-up studies NGTD. Follow-up pending thoracic spine MRI. Minimize benzos and narcotics. Seroquel also has been decreased. Neurology following recommending to continue IV acyclovir pending PCR in the CSF. Consider psychiatry consult especially if patient becomes agitated Acute urinary retention Ultrasound the kidneys showed: Small echogenic kidneys without obstruction; Sludge in the bladder. Urology evaluated the pt and he is s/p Cystoscopy and placement of 20 [place] catheter - Continue Muller.on flomax. urine does look somewhat bloody - urine cx growing corynebacterium >100,000 cfu/ml. ID consult placed. Discontinue rocephin IV and f/u repeat urine culture Weakness The patient mentioned he has been crawling on the floor prior to admission. - Physical therapy did evaluate the patient and recommends rehab. CM consulted for d/c planning - B12 and TSH wnl. HIV The patient states he takes his medications regularly. - on home medications. Follow HIV PCR and CD4 count Hypertension Blood pressure well controlled at this time. - on home medications. Chronic kidney disease. Improving renal indices on IV hydration Creatinine is stable at this time. - Avoid nephrotoxic agents. FEN. PO and IVF Wd care PPx: Heparin will be restarted Discharge Planning dc to rehab when ready. Still on IV acyclovir Salo Rodarte MD Jul 26, 2017 12:02
--- NOTE | 2017-07-26 12:41 | HHI.IDPN ---
Note Infectious Disease Note Patient noted to be hallucinating. Underwent LP. Afebrile He is sitting up in a chair and is rambling to himself. Calm. Knows he is in hospital in [facility]. thinks current Month is August. Denies [place]. Follows commands. Started on acyclovir. CSF studies pending. No growth at 24 hours on culture. 66-year-old white male who presented to the emergency department on 05/18 with generalized weakness. The patient reportedly was experiencing weakness and dizziness. He had no fever, chills, nausea, vomiting or other significant symptoms. Reportedly he was crawling around his house because of inability to stand. The patient has HIV disease. PAST MEDICAL HISTORY 1. HIV disease since 1985. 2. Bipolar disorder. 3. Hepatitis A. 4. Hypertension. 5. Chronic kidney disease. 6. History of perirectal abscess. ALLERGIES EMTRICITABINE. TENOFOVIR. MEDICATIONS Current Medications Medications (Trade) Dose Ordered Sig/Calvin Route PRN Reason Start Time Stop Time Status Last Admin Dose Admin Sodium Chloride (NS Flush) 2 ml UNSCH PRN IV FLUSH FLUSH AFTER USING IV ACCESS 07/20/17 01:00 Sodium Chloride (NS Flush) 2 ml BID IV FLUSH 07/20/17 09:00 07/25/17 22:08 Naloxone HCl (Narcan Inj) 0.4 mg UNSCH PRN IV PUSH SEE LABEL COMMENTS 07/20/17 01:00 Senna/Docusate Sodium (Sivan-Colace) 1 tab BID PO 07/20/17 09:00 07/26/17 08:32 Tamsulosin HCl (Flomax) 0.4 mg DAILY PO 07/21/17 09:00 07/26/17 08:32 Cyproheptadine HCl (Periactin) 8 mg HS PO 07/20/17 21:00 07/25/17 22:07 Lisinopril (Prinivil) 10 mg DAILY PO 07/21/17 09:00 07/25/17 09:00 Mirtazapine (Remeron) 45 mg HS PO 07/20/17 21:00 07/25/17 22:06 Pravastatin Sodium (Pravachol) 10 mg DAILY PO 07/21/17 09:00 07/26/17 08:32 Patient Own Medication PT OWN MED: Darunavir-Cobicistat 800-15... DAILY PO 07/20/17 17:00 07/26/17 08:33 Duloxetine HCl (Cymbalta Dr) 30 mg HS PO 07/20/17 21:00 07/25/17 22:44 Trazodone HCl (Desyrel) 150 mg HS PO 07/20/17 21:00 07/25/17 22:06 Alprazolam (Xanax) 0.5 mg Q8H PRN PO anxiety 07/20/17 16:45 07/26/17 06:05 Heparin Sodium (Porcine) (Heparin Inj) 5,000 units Q8HR SQ 07/20/17 22:00 Future Hold 07/24/17 05:26 Abacavir Sulfate (Ziagen) 600 mg DAILY PO 07/20/17 18:00 07/26/17 08:32 Lamivudine (Epivir) 300 mg DAILY PO 07/20/17 18:00 07/26/17 08:33 Albuterol/ Ipratropium (Duoneb Neb) 1 ampule Q2HR NEB PRN NEB cough, sob 07/22/17 03:15 Cyanocobalamin (Vitamin B12 Inj) 1,000 mcg Q24H IM 07/24/17 20:00 07/30/17 20:01 07/25/17 22:07 Cyanocobalamin (Vitamin B12 Inj) 1,000 mcg Q7D IM 08/06/17 20:00 08/27/17 20:01 Cyanocobalamin (Vitamin B12 Inj) 1,000 mcg Q30D IM 09/27/17 20:00 Acyclovir Sodium 900 mg/Sodium Chloride 150 ml @ 150 mls/hr Q8H IV 07/24/17 22:00 07/26/17 06:05 Quetiapine Fumarate (SEROquel) 100 mg HS PO 07/24/17 21:00 07/25/17 22:08 Thiamine HCl 100 mg/Sodium Chloride 101 ml @ 101 mls/hr DAILY IV 07/24/17 21:00 07/26/17 08:35 Potassium Chloride 30 meq/ Dextrose/Sodium Chloride 1,015 ml @ 70 mls/hr [id number] IV 07/25/17 13:00 07/25/17 14:20 Clotrimazole (Mycelex) 10 mg 5 TIMES A DAY BUCCAL 07/25/17 14:00 08/08/17 13:59 07/26/17 09:27 Collagenase (Santyl Oint) 1 applic DAILY TOPICAL 07/25/17 13:30 07/26/17 08:37 Oxycodone HCl (Roxicodone) 2.5 mg Q4H PRN PO pain 3-10 07/25/17 16:45 07/26/17 06:06 Miscellaneous (Pill Splitter) 1 ea UNSCH PRN OTHER SEE LABEL COMMENTS 07/25/17 16:45 Lorazepam (Ativan Inj) 1 mg UNSCH PRN IV PUSH agiation 07/26/17 12:00 OBJECTIVE: Vital Signs Date Time Temp Pulse Resp B/P (MAP) Pulse Ox O2 Delivery O2 Flow Rate FiO2 07/26/17 10:18 96 Nasal Cannula 2.00 07/26/17 08:43 86 07/26/17 07:47 99.4 88 18 103/51 (68) 92 07/26/17 05:31 98.9 94 18 146/73 (97) 95 07/26/17 01:11 98.1 18 108/61 (77) 95 07/25/17 21:10 97.8 81 18 120/62 (81) 94 07/25/17 17:48 95 Nasal Cannula 2.00 07/25/17 15:39 99.1 96 20 127/59 (81) 90 07/25/17 15:27 82 Laboratory Tests Test 07/25/17 08:15 White Blood Count 4.4 TH/MM3 Red Blood Count 4.02 MIL/MM3 Hemoglobin 14.2 GM/DL Hematocrit 40.2 % Mean Corpuscular Volume 99.9 FL Mean Corpuscular Hemoglobin 35.2 PG Mean Corpuscular Hemoglobin Concent 35.2 % Red Cell Distribution Width 14.3 % Platelet Count 120 TH/MM3 Mean Platelet Volume 7.1 FL Neutrophils (%) (Auto) 66.7 % Lymphocytes (%) (Auto) 20.4 % Monocytes (%) (Auto) 12.6 % Eosinophils (%) (Auto) 0.1 % Basophils (%) (Auto) 0.2 % Neutrophils # (Auto) 2.9 TH/MM3 Lymphocytes # (Auto) 0.9 TH/MM3 Monocytes # (Auto) 0.5 TH/MM3 Eosinophils # (Auto) 0.0 TH/MM3 Basophils # (Auto) 0.0 TH/MM3 CBC Comment DIFF FINAL Differential Comment Erythrocyte Sedimentation Rate 37 mm/hr Laboratory Tests Test 07/24/17 22:14 07/25/17 08:15 07/26/17 05:45 Ammonia 24 MCMOL/L Total Creatine Kinase 596 U/L Creatine Kinase MB 2.7 NG/ML Creatine Kinase MB % 0.5 % C-Reactive Protein 11.90 MG/DL Blood Urea Nitrogen 13 MG/DL 12 MG/DL Creatinine 0.87 MG/DL 0.81 MG/DL Random Glucose 72 MG/DL 85 MG/DL Total Protein 5.9 GM/DL Albumin 2.4 GM/DL Calcium Level 7.7 MG/DL 7.7 MG/DL Alkaline Phosphatase 79 U/L Aspartate Amino Transf (AST/SGOT) 50 U/L Alanine Aminotransferase (ALT/SGPT) 46 U/L Total Bilirubin 0.4 MG/DL Sodium Level 138 MEQ/L 137 MEQ/L Potassium Level 3.5 MEQ/L 3.3 MEQ/L Chloride Level 103 MEQ/L 102 MEQ/L Carbon Dioxide Level 27.2 MEQ/L 26.1 MEQ/L Anion Gap 8 MEQ/L 9 MEQ/L Estimat Glomerular Filtration Rate 88 ML/MIN 95 ML/MIN Magnesium Level 2.1 MG/DL 2.2 MG/DL Microbiology Date/Time Source Procedure Growth Status 07/25/17 10:33 Cerebral Spinal Fluid Lumbar Puncture Gram Stain - Final Resulted 07/25/17 10:33 Cerebral Spinal Fluid Lumbar Puncture CSF Culture - Preliminary NO GROWTH IN 24 HOURS. Resulted 07/23/17 14:20 Urine Catheterized Urine Urine Culture - Final NO GROWTH IN 48 HOURS. Complete IMAGING: Lumbar Puncture Fluoroscopy 07/25/17 0000 Signed Impressions: Service Date/Time: Tuesday, July 25, 2017 11:13 - CONCLUSION: Uncomplicated fluoroscopically guided lumbar puncture with pressures as above. Arron Tyler MD Brain MRI 07/24/17 0000 Signed Impressions: Service Date/Time: Monday, July 24, 2017 17:41 - CONCLUSION: 1. Senescent changes with mild small vessel ischemic white matter demyelination. 2. Otherwise, no acute abnormality. Morgan Gauthier MD Knee X-Ray 07/22/17 0000 Signed Impressions: Service Date/Time: Saturday, July 22, 2017 10:27 - CONCLUSION: No evidence of acute bony injury. Surgical findings related to ligature fixation of the patella with associated hypertrophic ossification about the patella.. Natanael Monge MD Renal Ultrasound 07/20/17 0000 Signed Impressions: Service Date/Time: Thursday, July 20, 2017 08:58 - CONCLUSION: 1. Small echogenic kidneys without obstruction 2. Sludge in the bladder. Post void residual suspected. Vince Mackay MD FACR Head CT [id number] Signed Impressions: Service Date/Time: July 19:37 - CONCLUSION: Normal examination. Clarence Gaston MD Chest X-Ray [id number] Signed Impressions: Service Date/Time: July 18:38 - CONCLUSION: No acute disease. Clarence Gaston MD PHYSICAL EXAMINATION GENERAL: This is an elderly well-developed male who appears older than stated age. Awake, confused. HEENT: The head is atraumatic. Extraocular movements grossly intact. Pupils reactive to light. No icterus. Oropharynx - slightly dry mucosa. No lesions. No thrush. NECK: Supple without adenopathy. LUNGS: Clear breath sounds. HEART: Regular S1 and S2, without murmurs, rubs or gallops. ABDOMEN: Bowel sounds present, soft, no tenderness appreciated. EXTREMITIES: No clubbing or clubbing or cyanosis. Trace edema of the upper extremities. Ecchymosis apparent at the upper extremities. SKIN: No diffuse rash. The skin is warm and moist. NEURO: Nonfocal. PSYCH: Calm and cooperative. IMPRESSION Abnormal urinary culture with Corynebacterium. Altered mental status. ? HIV encephalopathy. R/O encephalitis. ? medication effect. However probably less likely given his presentation on admission. HIV disease. On HAART. CSF not indicative of meningitis. Bacteriuria with corynebacterium. Repeat urine culture has no growth. No treatment. PLAN 1. Follow CSF studies. 2. Follow MRI. 3. Continue medications for HIV disease. Obtain T cell count and viral load. 4. Additional cultures if he develops fever. Juanpablo Cancino MD Jul 26, 2017 12:41
[2017-07-26] MEDS ORDERED: POTASSIUM CHLORIDE 20 MEQ CONTROLLED RELEASE TAB PO ONE (14:15)
--- NOTE | 2017-07-26 15:20 | RADRPT ---
EXAM DATE/TIME: 07/26/2017 13:25 [facility] COMPARISON: No previous studies available for comparison. INDICATIONS : Myelopathy. MEDICAL HISTORY : Hepatitis A. HIV. Leukemia. SURGICAL HISTORY : Knee surgery. ENCOUNTER: Initial ACUITY: 1 day PAIN SCORE: 0/10 LOCATION: Back. TECHNIQUE: Multiplanar multisequence MRI of the thoracic spine was performed. FINDINGS: Motion artifact degrades the study. The patient declined contrast. VERTEBRA: Normal vertebral body height. Homogeneous marrow signal. ALIGNMENT: Normal. CORD: Normal position and configuration. T1-T2: Normal. T2-T3: The thecal sac has a normal diameter. No evidence of disc bulge or protrusion. T3-T4: The thecal sac has a normal diameter. No evidence of disc bulge or protrusion. T4-T5: The thecal sac has a normal diameter. No evidence of disc bulge or protrusion. T5-T6: The thecal sac has a normal diameter. No evidence of disc bulge or protrusion. T6-T7: The thecal sac has a normal diameter. No evidence of disc bulge or protrusion. T7-T8: The thecal sac has a normal diameter. No evidence of disc bulge or protrusion. T8-T9: The thecal sac has a normal diameter. No evidence of disc bulge or protrusion. T9-T10: The thecal sac has a normal diameter. No evidence of disc bulge or protrusion. T10-T11: The thecal sac has a normal diameter. No evidence of disc bulge or protrusion. T11-T12: The thecal sac has a normal diameter. No evidence of disc bulge or protrusion. T12-L1: The thecal sac has a normal diameter. No evidence of disc bulge or protrusion. CONCLUSION: 1. The study is limited by motion artifact and the lack of contrast. 2. No abnormality appreciated. Natanael Parks Jr., MD on July 26, 2017 at 14:37 Board Certified Radiologist. This report was verified electronically.
--- NOTE | 2017-07-26 15:23 | RADRPT ---
EXAM DATE/TIME: 07/26/2017 13:25 [facility] COMPARISON: No previous studies available for comparison. INDICATIONS : Myelopathy. MEDICAL HISTORY : HIV. Hepatitis A. Leukemia. SURGICAL HISTORY : Knee surgery. ENCOUNTER: Initial ACUITY: 1 day PAIN SCORE: 0/10 LOCATION: Back. TECHNIQUE: Multiplanar, multisequence MRI examination of the cervical spine was performed. FINDINGS: Motion significantly degrades the exam. VERTEBRAE: Normal vertebral body height. Homogeneous marrow signal. ALIGNMENT: No evidence of subluxation. CORD: Normal configuration and signal. POST FOSSA: The cerebellar tonsils are normal in position. C2-C3: The thecal sac has a normal configuration. There is no evidence of disc herniation or spinal canal s tenosis. The neural foramina are patent bilaterally. C3-C4: The thecal sac has a normal configuration. There is no evidence of disc herniation or spinal canal s tenosis. The neural foramina are patent bilaterally. C4-C5: The thecal sac has a normal configuration. There is no evidence of disc herniation or spinal canal s tenosis. The neural foramina are patent bilaterally. C5-C6: A suspected broad-based disc bulge. This just touches the ventral portion of the cord. Right neural f oraminal narrowing suspected. The left appears patent. C6-C7: A right paracentral disc protrusion. This abuts the ventral portion of the cord. Neural foraminal marguerite rowing bilaterally suspected. C7-T1: The thecal sac has a normal configuration. There is no evidence of disc herniation or spinal canal s tenosis. The neural foramina are patent bilaterally. CONCLUSION: 1. Significantly limited study due to motion artifact. 2. Degenerative disc disease at C5-C6 and C6-C7 with suspected impression upon the cord. The cord is very limited in evaluation for signal change due to the motion. Natanael Parks Jr., MD on July 26, 2017 at 15:19 Board Certified Radiologist. This report was verified electronically.
[2017-07-26] MEDS: POTASSIUM CHLORIDE INJ 30 MEQ in DEXT 5%-NACL 0.9% 1000 ML INJ 1,000 ML IV SCH (15:40)
[2017-07-26] MEDS: CYPROHEPTADINE HCL 4 MG TAB PO SCH (21:00)
[2017-07-26] MEDS: traZODone HCL 50 MG TAB PO SCH (21:29)
[2017-07-26] MEDS: MIRTAZAPINE 15 MG TAB PO SCH (21:29)
[2017-07-26] MEDS: QUEtiapine FUMARATE 100 MG TAB PO SCH (21:29)
[2017-07-26] MEDS: DULoxetine HCl DR 30 MG CAP PO SCH (21:29)
[2017-07-26] MEDS: HEPARIN SODIUM - SQ 10,000 UNITS/ML VIAL SQ SCH (21:30)
[2017-07-26] MEDS: CYANOCOBALAMIN 1000 MCG/ML VIAL IM SCH (21:30)
[2017-07-27] VITALS (10 sets, daily range): BP systolic 106–135; BP diastolic 55–66; PULSE 64–83; RESP 18–20; TEMP 97.8–98.7; O2SAT 91–97
[2017-07-27] MEDS: CLOTRIMAZOLE 10 MG TROCHE BUCCAL SCH ×4 (05:01→17:13)
[2017-07-27] MEDS: ACYCLOVIR INJ 900 MG in SODIUM CHLORIDE 0.9% INJ 150 ML IV SCH (05:02)
[2017-07-27] MEDS: HEPARIN SODIUM - SQ 10,000 UNITS/ML VIAL SQ SCH ×3 (05:02→14:07)
[2017-07-27] MEDS ORDERED: ONDANSETRON HCL 4 MG/2 ML VIAL IV PUSH ONE (06:00)
[2017-07-27] MEDS: SODIUM CHLORIDE 0.9% FLUSH 10 ML FLUSH IV FLUSH SCH (08:21)
[2017-07-27] MEDS: DARUNAVIR COBICISTAT PO SCH (08:22)
[2017-07-27] MEDS: PRAVASTATIN SOD 10 MG TAB PO SCH (08:23)
[2017-07-27] MEDS: LISINOPRIL 10 MG TAB PO SCH (08:23)
[2017-07-27] MEDS: DOCUSATE SODIUM 50 MG/SENNA 8.6 MG TAB PO SCH (08:24)
[2017-07-27] MEDS: ABACAVIR SULFATE 300 MG TAB PO SCH (08:24)
[2017-07-27] MEDS: TAMSULOSIN HCL 0.4 MG CAP PO SCH (08:24)
[2017-07-27] MEDS: COLLAGENASE OINT 30 GM TUBE TOPICAL SCH (08:25)
[2017-07-27] MEDS: THIAMINE INJ 100 MG in SODIUM CHLORIDE 0.9% INJ 100 ML IV SCH (08:25)
--- NOTE | 2017-07-27 08:28 | HHI.PR ---
Review/Management Diagnosis/Plan: (1) Encephalopathy acute ICD Codes: G93.40 - Encephalopathy, unspecified Status: Acute Plan: CT brain 07/19/2017 [facility] MRI brain B12 deficient, supplement iv thiamine iv acyclovir possible hiv encephalopathy with b12 deficiency csf- wbc 0. protein slightly elevated 60 gram stain negative recs mental much better if any recurrent psychosis/agitation would start seroquel b12 supplementation continue iv acyclovir until hsv pcr returns limit/reduce opiods d/c planning once pcr back and negative no driving (2) Rhabdomyolysis ICD Codes: M62.82 - Rhabdomyolysis Status: Acute (3) HIV (human immunodeficiency virus infection) ICD Codes: B20 - Human immunodeficiency virus [HIV] disease Status: Chronic Plan: Seen by infectious disease Continued on antiretrovirals (4) Bipolar disorder ICD Codes: F31.9 - Bipolar disorder, unspecified Status: Chronic Plan: Patient on multiple psychotropic medications Monitor for serotonin syndrome Subjective Subjective Comments No acute events reported No headache No chest pain No dyspnea Active Medications Current Medications Medications (Trade) Dose Ordered Sig/Calvin Route Start Time Stop Time Status Last Admin (NS Flush) 2 ml UNSCH PRN IV FLUSH 07/20/17 01:00 07/27/17 06:11 (NS Flush) 2 ml BID IV FLUSH 07/20/17 09:00 07/25/17 22:08 (Narcan Inj) 0.4 mg UNSCH PRN IV PUSH 07/20/17 01:00 (Sivan-Colace) 1 tab BID PO 07/20/17 09:00 07/26/17 21:29 (Flomax) 0.4 mg DAILY PO 07/21/17 09:00 07/26/17 08:32 (Periactin) 8 mg HS PO 07/20/17 21:00 07/26/17 21:00 (Prinivil) 10 mg DAILY PO 07/21/17 09:00 07/25/17 09:00 (Remeron) 45 mg HS PO 07/20/17 21:00 07/26/17 21:29 (Pravachol) 10 mg DAILY PO 07/21/17 09:00 07/26/17 08:32 Patient Own Medication PT OWN MED: Darunavir-Cobicistat 800-15... DAILY PO 07/20/17 17:00 07/26/17 08:33 (Cymbalta Dr) 30 mg HS PO 07/20/17 21:00 07/26/17 21:29 (Desyrel) 150 mg HS PO 07/20/17 21:00 07/26/17 21:29 (Xanax) 0.5 mg Q8H PRN PO 07/20/17 16:45 07/26/17 06:05 (Heparin Inj) 5,000 units Q8HR SQ 07/20/17 22:00 Future hold 07/24/17 05:26 (Ziagen) 600 mg DAILY PO 07/20/17 18:00 07/26/17 08:32 (Epivir) 300 mg DAILY PO 07/20/17 18:00 07/26/17 08:33 (Duoneb Neb) 1 ampule Q2HR NEB PRN NEB 07/22/17 03:15 (Vitamin B12 Inj) 1,000 mcg Q24H IM 07/24/17 20:00 07/30/17 20:01 07/26/17 21:30 (Vitamin B12 Inj) 1,000 mcg Q7D IM 08/06/17 20:00 08/27/17 20:01 (Vitamin B12 Inj) 1,000 mcg Q30D IM 09/27/17 20:00 Acyclovir Sodium 900 mg/Sodium Chloride 150 ml @ 150 mls/hr Q8H IV 07/24/17 22:00 07/27/17 05:02 (SEROquel) 100 mg HS PO 07/24/17 21:00 07/26/17 21:29 Thiamine HCl 100 mg/Sodium Chloride 101 ml @ 101 mls/hr DAILY IV 07/24/17 21:00 07/26/17 08:35 Potassium Chloride 30 meq/ Dextrose/Sodium Chloride 1,015 ml @ 70 mls/hr [id number] IV 07/25/17 13:00 07/26/17 15:40 (Mycelex) 10 mg 5 TIMES A DAY BUCCAL 07/25/17 14:00 08/08/17 13:59 07/27/17 05:01 (Santyl Oint) 1 applic DAILY TOPICAL 07/25/17 13:30 07/26/17 08:37 (Roxicodone) 2.5 mg Q4H PRN PO 07/25/17 16:45 07/26/17 06:06 (Pill Splitter) 1 ea UNSCH PRN OTHER 07/25/17 16:45 (Ativan Inj) 1 mg UNSCH PRN IV PUSH 07/26/17 12:00 07/26/17 15:37 Allergies Allergies Coded Allergies emtricitabine (Unverified Adverse Reaction, Severe, AMS, N&V, H/A, LEG SWELLING, 07/20/17) tenofovir (Unverified Adverse Reaction, Severe, AMS, N&V, H/A, LEG SWELLING, ) Review of Systems Constitutional: Negative except HPI Eye: Negative Except HPI ENMT: Negative except HPI Respiratory: Negative except HPI Cardiovascular: Negative except HPI Gastrointestinal: Negative except HPI Milad/Lymph: Negative except HPI Musculoskeletal: Negative except HPI Neurologic: Negative except HPI Psychiatric: Negative except HPI All other ROS: ROS reviewed as documented in chart Exam I&O / VS Vital Signs Date Time Temp Pulse Resp B/P (MAP) Pulse Ox O2 Delivery O2 Flow Rate FiO2 07/27/17 07:45 98.5 73 20 106/55 (72) 92 07/27/17 04:00 97.8 64 18 133/63 (86) 91 07/27/17 00:00 98.7 79 18 135/60 (85) 97 07/26/17 20:00 98.1 64 18 128/60 (82) 95 07/26/17 17:18 96 Nasal Cannula 2.00 07/26/17 16:21 76 07/26/17 15:24 98.8 72 20 120/58 (78) 96 07/26/17 12:39 98.3 84 18 123/68 (86) 92 07/26/17 12:15 78 07/26/17 10:18 96 Nasal Cannula 2.00 07/26/17 08:43 86 General: No acute distress Eye: PERRL, EOMI Respiratory: Non-labored respirations, Symmetrical expansion Cardiology: Normal rate Neurologic: Alert Psychiatric: Cooperative Exam Comments alert, ox 2. not to month. knows it is 2017, pres Trump,. no hallucinations, asking for breakfast, much more clear and appropriate, eomi, face sym, vff, able to levine to gravity 4/5, no clonus, planterflexor Objective Micro and Labs Laboratory Tests Test 07/26/17 12:51 Date/Time Source Procedure Growth Status 07/25/17 10:33 Cerebral Spinal Fluid Lumbar Puncture Gram Stain - Final Resulted 07/25/17 10:33 Cerebral Spinal Fluid Lumbar Puncture CSF Culture - Preliminary NO GROWTH IN 24 HOURS. Resulted 07/23/17 14:20 Urine Catheterized Urine Urine Culture - Final NO GROWTH IN 48 HOURS. Complete Problem Qualifiers (1) Rhabdomyolysis: Qualified Codes: M62.82 - Rhabdomyolysis Miky Islas MD Jul 27, 2017 08:28
[2017-07-27] MEDS ORDERED: ONDANSETRON HCL 4 MG/2 ML VIAL IV PUSH PRN (08:30)
[2017-07-27] MEDS: POTASSIUM CHLORIDE INJ 30 MEQ in DEXT 5%-NACL 0.9% 1000 ML INJ 1,000 ML IV SCH (09:25)
[2017-07-27] MEDS: ALPRAZolam 0.5 MG TAB PO PRN (09:32)
[2017-07-27 10:13] LABS: ENTEROVIRUS PCR RESULT Negative (Negative); ENTEROVIRUS PCR SPEC SOURCE CSF; HSV 1,PCR Negative (Negative)
--- NOTE | 2017-07-27 10:48 | PD.PSY.CON ---
Provisional Diagnosis Admission Date Jul 19, 2017 at 21:57 [place] I. Bipolar disorder, delirium due to another underlying medical condition [place] II. Deferred [place] III. Chronic kidney disease, urinary retention, HIV, encephalopathy, [place] IV. Multiple chronic medical conditions Selma V. 55 History of Present Illness Service Psychiatry Consult Requested By Medical team Reason for Consult Visual hallucinations Primary Care Physician Unknown HPI The patient is a 66-year-old man, domiciled in [place] with a significant other, unemployed, supported by [facility], with psychiatric history of bipolar disorder, depression, no previous psychiatric hospitalizations, no suicidal attempts, outpatient psychiatric care with Dr. Mancilla, he some Remeron 45, trazodone 150, Seroquel 200 mg at bedtime, Cymbalta 30 mg, medical history of HIV, hypertension, admitted to the hospital with generalized weakness and urinary retention. Who was consulted to psychiatry due to visual hallucinations and agitation. Neurology was consulted also and according to the chart the patient has been hallucinating since approximately 3 days prior to admission. The patient is unable to give me any meaningful history during my evaluation, mostly speaking gibberish with few partial sentences intermittently. The chart is reviewed and patient has history of HIV since 1985 on antiretroviral therapy, bipolar disorder, chronic kidney disease, hepatitis A virus infection, hypertension, perirectal abscess. It is notable that the patient had CT of the brain on 07/19/2017 with no acute intracranial process. His vitamin B12 level was 194 and TSH was 1.720. On psychiatric evaluation, the patient is calm, cooperative and pleasant. The patient reports that he is feeling much better today. He reports good mood, and he is in a good spirit. The patient even displaying a good sense of humor, he is circumstantial in his conversation, but redirectable. The patient reports that he is doing much better now, denies distress and pain. At this moment the patient denies visual hallucinations, auditory hallucinations, he denies depression, anxiety, he denies suicidal and homicidal ideation. The patient is circumstantial sometimes, but he is easily redirectable. Logical, he is coherent and relevant. He is fully oriented 3, no attention deficit, no fluctuation of consciousness, no gross cognitive impairment are present at this moment. Patient says that the last time that he was depressed was about 3 years ago when he lost his dog. Since then she has been stable in his current psychotropic regimen prescribed by Dr. Mancilla who has been his psychiatrist for 14 years. The patient denies the use of illegal drugs and alcohol. Review of Systems Constitutional: DENIES: Diaphoretic episodes, Fatigue, Fever, Weight gain, Weight loss, Chills, Dizziness, Change in appetite, Night Sweats Endocrine: DENIES: Heat/cold intolerance, Polydipsia, Polyuria, Polyphagia Eyes: DENIES: Blurred vision, Diplopia, Eye inflammation, Eye pain, Vision loss , Photosensitivity, Double Vision Ears, nose, mouth, throat: DENIES: Tinnitus, Hearing loss, Vertigo, Nasal discharge, Oral lesions, Throat pain, Hoarseness, Ear Pain, Running Nose, Epistaxis, Sinus Pain, Toothache, Odynophagia Respiratory: DENIES: Apneas, Cough, Snoring, Wheezing, Hemoptysis, Sputum production, Shortness of breath Gastrointestinal: DENIES: Abdominal pain, Black stools, Bloody stools, Constipation, Diarrhea, Nausea, Vomiting, Difficulty Swallowing, Anorexia Genitourinary: DENIES: Sexual dysfunction, Urinary frequency, Urinary incontinence, Urgency, Hematuria, Dysuria, Nocturia, Penile Discharge, Testicular Pain, Testicular Swelling Musculoskeletal: DENIES: Joint pain, Muscle aches, Stiffness, Joint Swelling, Back pain, Neck pain Integumentary: DENIES: Abnormal pigmentation, Nail changes, Pruritus, Rash Hematologic/lymphatic: DENIES: Bruising, Lymphadenopathy Immunologic/allergic: DENIES: Eczema, Urticaria Neurologic: DENIES: Abnormal gait, Headache, Localized weakness, Paresthesias, Seizures, Speech Problems, Tremor, Poor Balance Psychiatric: DENIES: Anxiety, Confusion, Mood changes, Depression, Hallucinations, Agitation, Suicidal Ideation, Homicidal Ideation, Delusions Past Family Social History Coded Allergies: emtricitabine (Unverified Adverse Reaction, Severe, AMS, N&V, H/A, LEG SWELLING, 07/20/17) tenofovir (Unverified Adverse Reaction, Severe, AMS, N&V, H/A, LEG SWELLING, 07/20/17) Reported Medications Trazodone (Trazodone) 150 Mg Tablet, 150 MG PO HS for Control Depression, #30 TAB 0 Refills 07/20/17 Quetiapine (Quetiapine) 300 Mg Tab, 300 MG PO HS, #30 TAB 0 Refills 07/20/17 Pravastatin (Pravastatin) 10 Mg Tab, 10 MG PO DAILY for Cholesterol Management, #30 TAB 0 Refills 07/20/17 Mirtazapine (Mirtazapine) 45 Mg Tab, 45 MG PO HS for Depression Control, #30 TAB 0 Refills 07/20/17 Lisinopril (Lisinopril) 10 Mg Tab, 10 MG PO DAILY, #30 TAB 0 Refills 07/20/17 Duloxetine HCl (Duloxetine HCl) 100 % Powder, 120 MG PO DAILY 07/20/17 Duloxetine HCl (Duloxetine HCl) 100 % Powder, 30 MG PO HS 07/20/17 Cyproheptadine (Cyproheptadine) 4 Mg Tab, 8 MG PO HS for Allergy Management, # 90 TAB 0 Refills 07/20/17 Alprazolam (Alprazolam) 1 Mg Tab, 1 MG PO QID, TAB 0 Refills 07/20/17 Darunavir-Cobicistat (Prezcobix) 800-150 Mg Tab, 1 TAB PO DAILY for Mgmt Viral Infection, #30 TAB 0 Refills 07/20/17 Meclizine (Meclizine) 25 Mg Tab, 25 MG PO DAILY Y for VERTIGO, TAB 0 Refills 07/20/17 Abacavir-Lamivudine (Abacavir-Lamivudine) 600-300 Mg Tab, 1 TAB PO DAILY for Mgmt Viral Infection, #60 TAB 0 Refills 07/20/17 Cyproheptadine Hcl (Cyproheptadine Hcl) 4 Mg Tab, 8 MG PO HS 07/20/17 Quetiapine Fumarate (Seroquel) 300 Mg Tab, 300 MG PO HS 07/20/17 DULOXETINE HCl (Cymbalta) 60 Mg Cap, 120 MG PO DAILY 07/20/17 Trazodone Hcl (Desyrel) 50 Mg Tab, 150 MG PO HS 07/20/17 Mirtazapine 45 mg (Remeron 45 mg) 45 Mg Tab, 45 MG PO HS 07/20/17 Lisinopril 10 mg (Lisinopril 10 mg) 10 Mg Tab, 10 MG PO DAILY 07/20/17 Alprazolam (Xanax 1 mg) 1 Mg Tab, 1 MG PO QID 07/20/17 Pravastatin Sod (Pravachol) 10 Mg Tab, 40 MG PO DAILY UNKNOWN DOSE 07/20/17 DULOXETINE HCl (Cymbalta) 30 Mg Cap, 30 MG PO HS 07/20/17 Hydrocodone-Acetaminophen (Hydrocodone-Acetaminophen) 10-325 mg Tab, 1 TAB PO Q8HR Y for PAIN, TAB 0 Refills 07/20/17 Current Medications Medications (Trade) Dose Ordered Sig/Calvin Route Start Time Stop Time Status Last Admin (NS Flush) 2 ml UNSCH PRN IV FLUSH 07/20/17 01:00 07/27/17 06:11 (NS Flush) 2 ml BID IV FLUSH 07/20/17 09:00 07/25/17 22:08 (Narcan Inj) 0.4 mg UNSCH PRN IV PUSH 07/20/17 01:00 (Sivan-Colace) 1 tab BID PO 07/20/17 09:00 07/27/17 08:24 (Flomax) 0.4 mg DAILY PO 07/21/17 09:00 07/27/17 08:24 (Periactin) 8 mg HS PO 07/20/17 21:00 07/26/17 21:00 (Prinivil) 10 mg DAILY PO 07/21/17 09:00 07/27/17 08:23 (Remeron) 45 mg HS PO 07/20/17 21:00 07/26/17 21:29 (Pravachol) 10 mg DAILY PO 07/21/17 09:00 07/27/17 08:23 Patient Own Medication PT OWN MED: Darunavir-Cobicistat 800-15... DAILY PO 07/20/17 17:00 07/27/17 08:22 (Cymbalta Dr) 30 mg HS PO 07/20/17 21:00 07/26/17 21:29 (Desyrel) 150 mg HS PO 07/20/17 21:00 07/26/17 21:29 (Xanax) 0.5 mg Q8H PRN PO 07/20/17 16:45 07/27/17 09:32 (Heparin Inj) 5,000 units Q8HR SQ 07/20/17 22:00 Future hold 07/24/17 05:26 (Ziagen) 600 mg DAILY PO 07/20/17 18:00 07/27/17 08:24 (Epivir) 300 mg DAILY PO 07/20/17 18:00 07/27/17 08:24 (Duoneb Neb) 1 ampule Q2HR NEB PRN NEB 07/22/17 03:15 (Vitamin B12 Inj) 1,000 mcg Q24H IM 07/24/17 20:00 07/30/17 20:01 07/26/17 21:30 (Vitamin B12 Inj) 1,000 mcg Q7D IM 08/06/17 20:00 08/27/17 20:01 (Vitamin B12 Inj) 1,000 mcg Q30D IM 09/27/17 20:00 Acyclovir Sodium 900 mg/Sodium Chloride 150 ml @ 150 mls/hr Q8H IV 07/24/17 22:00 07/27/17 05:02 (SEROquel) 100 mg HS PO 07/24/17 21:00 07/26/17 21:29 Thiamine HCl 100 mg/Sodium Chloride 101 ml @ 101 mls/hr DAILY IV 07/24/17 21:00 07/27/17 08:25 Potassium Chloride 30 meq/ Dextrose/Sodium Chloride 1,015 ml @ 70 mls/hr [id number] IV 07/25/17 13:00 07/27/17 09:25 (Mycelex) 10 mg 5 TIMES A DAY BUCCAL 07/25/17 14:00 08/08/17 13:59 07/27/17 08:25 (Santyl Oint) 1 applic DAILY TOPICAL 07/25/17 13:30 07/27/17 08:25 (Roxicodone) 2.5 mg Q4H PRN PO 07/25/17 16:45 07/27/17 09:32 (Pill Splitter) 1 ea UNSCH PRN OTHER 07/25/17 16:45 (Ativan Inj) 1 mg UNSCH PRN IV PUSH 07/26/17 12:00 07/26/17 15:37 (Zofran Inj) 4 mg Q6HR PRN IV PUSH 07/27/17 08:30 07/27/17 09:32 Family Psych History No family psychiatric history Social History Patient was born in [place], he has been living in [place] for 27 years, he lives in [place] with his significant other, unemployed, supported by [facility], his highest level of education is high school Patient's Strengths (min. 2) Outpatient psychiatric care Physical Exam No tremors, no EPS, no stiffness, no psychomotor retardation or agitation at this moment Vital Signs Vital Signs Date Time Temp Pulse Resp B/P (MAP) Pulse Ox O2 Delivery O2 Flow Rate FiO2 07/27/17 10:23 92 Nasal Cannula 2.00 07/27/17 08:37 83 07/27/17 07:45 98.5 20 106/55 (72) I/O 07/27/17 07/27/17 07/28/17 08:00 16:00 00:00 Intake Total 101 ml Output Total 800 ml Balance -800 ml 101 ml Lab Results Test 07/26/17 12:51 Date/Time Source Procedure Growth Status 07/25/17 10:33 Cerebral Spinal Fluid Lumbar Puncture Gram Stain - Final Resulted 07/25/17 10:33 Cerebral Spinal Fluid Lumbar Puncture CSF Culture - Preliminary NO GROWTH IN 48 HOURS. Resulted 07/23/17 14:20 Urine Catheterized Urine Urine Culture - Final NO GROWTH IN 48 HOURS. Complete Mental Status Examination Appearance: Appropriate Consciousness: Alert Orientation: x4 Motor Activity: Normal gait Speech: Unremarkable Language: Adequate Fund of Knowledge: Adequate Attention and Concentration: Adequate Memory: Unremarkable Mood: Appropriate Affect: Appropriate Thought Process & Associations: Intact Thought Content: Appropriate Hallucination Type: None Delusion Type: None Suicidal Ideation: No Suicidal Plan: No Suicidal Intention: No Homicidal Ideation: No Homicidal Plan: No Homicidal Intention: No Insight: Adequate Judgment: Adequate Assessment & Plan Problem List: (1) Bipolar disorder ICD Codes: F31.9 - Bipolar disorder, unspecified Status: Chronic Assessment & Plan: On psychiatric evaluation today the patient does not present any neuropsychiatric symptoms that require an immediate psychiatric attention. The patient denies depressive symptoms, he denies anxiety, he denies libia and psychosis. He denies suicidal and homicidal ideation, he denies visual and auditory hallucinations. The patient does not seem to be internally preoccupied, delirious, or acutely psychotic. No agitation, no aggressive behavior, no loosening of associations, no delusions of reference, present during this evaluation. The patient is oriented 3, without fluctuation of consciousness or attention deficit. The patient has history of bipolar disorder, but he has been in treatment with Dr. Mancilla for about 14 years, stable, with the medication mentioned above. He does not meet criteria for involuntary psychiatric admission at this moment. In my opinion his recent reported hallucinations and agitation could be the result of delirium secondary to urinary retention/UTI and other medical conditions decompensation. At this moment theses symptoms seems to be resolved. I will restart his outpatient medication including Seroquel 300 mg at bedtime. Continue psychiatric care as an outpatient. Brief supportive psychotherapy provided. Consult appreciated. Assessment & Plan Estimated LOS: Efren Montemayor MD Jul 27, 2017 10:48
--- NOTE | 2017-07-27 11:23 | HHI.IDPN ---
Note Infectious Disease Note Patient says he feels fine. Watching TV and appears to be following news event appropriately based on his analysis of what is on now. Notes mild [place]. Afebrile Oriented x 3. Started on acyclovir. CSF studies pending. No growth. HSV negative. 66-year-old white male who presented to the emergency department on 05/18 with generalized weakness. The patient reportedly was experiencing weakness and dizziness. He had no fever, chills, nausea, vomiting or other significant symptoms. Reportedly he was crawling around his house because of inability to stand. The patient has HIV disease. PAST MEDICAL HISTORY 1. HIV disease since 1985. 2. Bipolar disorder. 3. Hepatitis A. 4. Hypertension. 5. Chronic kidney disease. 6. History of perirectal abscess. ALLERGIES EMTRICITABINE. TENOFOVIR. MEDICATIONS Current Medications Medications (Trade) Dose Ordered Sig/Calvin Route PRN Reason Start Time Stop Time Status Last Admin Dose Admin Sodium Chloride (NS Flush) 2 ml UNSCH PRN IV FLUSH FLUSH AFTER USING IV ACCESS 07/20/17 01:00 07/27/17 06:11 Sodium Chloride (NS Flush) 2 ml BID IV FLUSH 07/20/17 09:00 07/25/17 22:08 Naloxone HCl (Narcan Inj) 0.4 mg UNSCH PRN IV PUSH SEE LABEL COMMENTS 07/20/17 01:00 Senna/Docusate Sodium (Sivan-Colace) 1 tab BID PO 07/20/17 09:00 07/27/17 08:24 Tamsulosin HCl (Flomax) 0.4 mg DAILY PO 07/21/17 09:00 07/27/17 08:24 Cyproheptadine HCl (Periactin) 8 mg HS PO 07/20/17 21:00 07/26/17 21:00 Lisinopril (Prinivil) 10 mg DAILY PO 07/21/17 09:00 07/27/17 08:23 Mirtazapine (Remeron) 45 mg HS PO 07/20/17 21:00 07/26/17 21:29 Pravastatin Sodium (Pravachol) 10 mg DAILY PO 07/21/17 09:00 07/27/17 08:23 Patient Own Medication PT OWN MED: Darunavir-Cobicistat 800-15... DAILY PO 07/20/17 17:00 07/27/17 08:22 Duloxetine HCl (Cymbalta Dr) 30 mg HS PO 07/20/17 21:00 07/26/17 21:29 Trazodone HCl (Desyrel) 150 mg HS PO 07/20/17 21:00 07/26/17 21:29 Alprazolam (Xanax) 0.5 mg Q8H PRN PO anxiety 07/20/17 16:45 07/27/17 09:32 Heparin Sodium (Porcine) (Heparin Inj) 5,000 units Q8HR SQ 07/20/17 22:00 Future hold 07/24/17 05:26 Abacavir Sulfate (Ziagen) 600 mg DAILY PO 07/20/17 18:00 07/27/17 08:24 Lamivudine (Epivir) 300 mg DAILY PO 07/20/17 18:00 07/27/17 08:24 Albuterol/ Ipratropium (Duoneb Neb) 1 ampule Q2HR NEB PRN NEB cough, sob 07/22/17 03:15 Cyanocobalamin (Vitamin B12 Inj) 1,000 mcg Q24H IM 07/24/17 20:00 07/30/17 20:01 07/26/17 21:30 Cyanocobalamin (Vitamin B12 Inj) 1,000 mcg Q7D IM 08/06/17 20:00 08/27/17 20:01 Cyanocobalamin (Vitamin B12 Inj) 1,000 mcg Q30D IM 09/27/17 20:00 Acyclovir Sodium 900 mg/Sodium Chloride 150 ml @ 150 mls/hr Q8H IV 07/24/17 22:00 07/27/17 05:02 Thiamine HCl 100 mg/Sodium Chloride 101 ml @ 101 mls/hr DAILY IV 07/24/17 21:00 07/27/17 08:25 Potassium Chloride 30 meq/ Dextrose/Sodium Chloride 1,015 ml @ 70 mls/hr [id number] IV 07/25/17 13:00 07/27/17 09:25 Clotrimazole (Mycelex) 10 mg 5 TIMES A DAY BUCCAL 07/25/17 14:00 08/08/17 13:59 07/27/17 08:25 Collagenase (Santyl Oint) 1 applic DAILY TOPICAL 07/25/17 13:30 07/27/17 08:25 Oxycodone HCl (Roxicodone) 2.5 mg Q4H PRN PO pain 3-10 07/25/17 16:45 07/27/17 09:32 Miscellaneous (Pill Splitter) 1 ea UNSCH PRN OTHER SEE LABEL COMMENTS 07/25/17 16:45 Lorazepam (Ativan Inj) 1 mg UNSCH PRN IV PUSH agiation 07/26/17 12:00 07/26/17 15:37 Ondansetron HCl (Zofran Inj) 4 mg Q6HR PRN IV PUSH nausea 07/27/17 08:30 07/27/17 09:32 Quetiapine Fumarate (SEROquel) 300 mg HS PO 07/27/17 21:00 OBJECTIVE: Vital Signs Date Time Temp Pulse Resp B/P (MAP) Pulse Ox O2 Delivery O2 Flow Rate FiO2 07/27/17 10:23 92 Nasal Cannula 2.00 07/27/17 08:37 83 07/27/17 07:45 98.5 73 20 106/55 (72) 92 07/27/17 04:00 97.8 64 18 133/63 (86) 91 07/27/17 00:00 98.7 79 18 135/60 (85) 97 07/26/17 20:00 98.1 64 18 128/60 (82) 95 07/26/17 17:18 96 Nasal Cannula 2.00 07/26/17 16:21 76 07/26/17 15:24 98.8 72 20 120/58 (78) 96 07/26/17 12:39 98.3 84 18 123/68 (86) 92 07/26/17 12:15 78 Laboratory Tests Test 07/26/17 05:45 Blood Urea Nitrogen 12 MG/DL Creatinine 0.81 MG/DL Random Glucose 85 MG/DL Calcium Level 7.7 MG/DL Magnesium Level 2.2 MG/DL Sodium Level 137 MEQ/L Potassium Level 3.3 MEQ/L Chloride Level 102 MEQ/L Carbon Dioxide Level 26.1 MEQ/L Anion Gap 9 MEQ/L Estimat Glomerular Filtration Rate 95 ML/MIN Microbiology Date/Time Source Procedure Growth Status 07/25/17 10:33 Cerebral Spinal Fluid Lumbar Puncture Gram Stain - Final Resulted 07/25/17 10:33 Cerebral Spinal Fluid Lumbar Puncture CSF Culture - Preliminary NO GROWTH IN 48 HOURS. Resulted IMAGING: Lumbar Puncture Fluoroscopy 07/25/17 0000 Signed Impressions: Service Date/Time: Tuesday, July 25, 2017 11:13 - CONCLUSION: Uncomplicated fluoroscopically guided lumbar puncture with pressures as above. Arron Tyler MD Brain MRI 07/24/17 0000 Signed Impressions: Service Date/Time: Monday, July 24, 2017 17:41 - CONCLUSION: 1. Senescent changes with mild small vessel ischemic white matter demyelination. 2. Otherwise, no acute abnormality. Morgan Gauthier MD Knee X-Ray 07/22/17 0000 Signed Impressions: Service Date/Time: Saturday, July 22, 2017 10:27 - CONCLUSION: No evidence of acute bony injury. Surgical findings related to ligature fixation of the patella with associated hypertrophic ossification about the patella.. Natanael Monge MD Renal Ultrasound 07/20/17 0000 Signed Impressions: Service Date/Time: Thursday, July 20, 2017 08:58 - CONCLUSION: 1. Small echogenic kidneys without obstruction 2. Sludge in the bladder. Post void residual suspected. Vnice Mackay MD FACR Head CT [id number] Signed Impressions: Service Date/Time: July 19:37 - CONCLUSION: Normal examination. Clarence Gaston MD Chest X-Ray [id number] Signed Impressions: Service Date/Time: July 18:38 - CONCLUSION: No acute disease. Clarence Gaston MD PHYSICAL EXAMINATION GENERAL: No acute distress. HEENT: The head is atraumatic. Extraocular movements grossly intact. Pupils reactive to light. No icterus. Oropharynx - slightly dry mucosa. No lesions. No thrush. NECK: Supple without adenopathy. LUNGS: Clear breath sounds. HEART: Regular S1 and S2, without murmurs, rubs or gallops. ABDOMEN: Bowel sounds present, soft, no tenderness. EXTREMITIES: No clubbing or clubbing or cyanosis. Trace edema of the upper extremities. Ecchymosis at the upper extremities. SKIN: No diffuse rash. The skin is warm and moist. NEURO: Nonfocal. PSYCH: Calm and cooperative. IMPRESSION Altered mental status. ? HIV encephalopathy. R/O encephalitis. CSF studies negative. ? medication effect. However probably less likely given his presentation on admission. HIV disease. On HAART. CSF not indicative of meningitis. Bacteriuria with corynebacterium. Repeat urine culture has no growth. No treatment. Seems to be stable. PLAN 1. Continue medications for HIV disease. 2. Follow T cell count and viral load. 3. Follow CSF studies. Additional cultures if he develops fever. Juanpablo Cancino MD Jul 27, 2017 11:23
[2017-07-27] MEDS ORDERED: PERI PO (12:42)
[2017-07-27] MEDS ORDERED: OXYC-392 PO (12:42)
[2017-07-27] MEDS ORDERED: ALPR.5 PO (12:42)
[2017-07-27] MEDS ORDERED: CLOT10TR BUCCAL (12:42)
[2017-07-27] MEDS ORDERED: TAMS5CAP PO (12:42)
[2017-07-27] MEDS ORDERED: CYAN1000P IM ×2 (12:42)
--- NOTE | 2017-07-27 12:43 | HHI.DCPOC ---
Discharge Care Plan Diagnosis: (1) Urinary retention (2) Hallucinations Your Health Problems Are: Difficulty with ADL Exercise Tolerance Goals to Promote Your Health * To prevent worsening of your condition and complications * To maintain your health at the optimal level Directions to Meet Your Goals Take your medications as prescribed Follow your dietary instruction Follow activity as directed Keep your appointments as scheduled Take your immunizations and boosters as scheduled If your symptoms worsen call your PCP, if no PCP go to Urgent Care Center or Emergency Room Smoking is Dangerous to Your Health. Avoid second hand smoke Call the 24-hour hour crisis hotline for domestic abuse at Salo Rodarte MD Jul 27, 2017 12:43
--- NOTE | 2017-07-27 12:54 | HHI.DS ---
Discharge Summary Admission Date Jul 19, 2017 at 21:57 Discharge Date: Jul 27, 2017 Admitting Diagnosis urinary obstruction (1) Urinary retention ICD Code: R33.9 - Retention of urine, unspecified Diagnosis: Principal Status: Acute Procedures Cystoscopy with placement of Muller catheter Lumbar puncture Brief History - From Admission The patient is a 66-year-old male with a past medical history of HIV and chronic kidney disease who is presenting to the hospital with weakness and difficulty urinating. The patient says that he felt weak for the past couple of days which progressed to the point where he was crawling on the floor. He said that his urine output has been decreasing. He says he went to a hospital for this but was unable to elaborate further on that. He denies any pain. The emergency department a Muller catheter was attempted several times and was unable to be placed. Urology was contacted for Muller placement. The patient has been able to urinate without the Muller catheter but has been putting out a small amount of urine. He denies any diarrhea, nausea and vomiting or fevers. Discussed with nursing. CBC/BMP: 07/25/17 0815 07/26/17 0545 Significant Findings Laboratory Tests Test 07/24/17 22:14 07/25/17 08:15 07/25/17 10:33 07/26/17 05:45 Total Creatine Kinase 596 U/L (39-308) C-Reactive Protein 11.90 MG/DL (0.00-0.30) Red Blood Count 4.02 MIL/MM3 (4.50-5.90) Mean Corpuscular Hemoglobin 35.2 PG (27.0-34.0) Platelet Count 120 TH/MM3 (150-450) Monocytes (%) (Auto) 12.6 % (0.0-8.0) Lymphocytes # (Auto) 0.9 TH/MM3 (1.0-4.8) Erythrocyte Sedimentation Rate 37 mm/hr (0-20) Random Glucose 72 MG/DL (74-106) Total Protein 5.9 GM/DL (6.4-8.2) Albumin 2.4 GM/DL (3.4-5.0) Calcium Level 7.7 MG/DL (8.5-10.1) 7.7 MG/DL (8.5-10.1) Aspartate Amino Transf (AST/SGOT) 50 U/L (15-37) Estimat Glomerular Filtration Rate 88 ML/MIN (>89) CSF RBC (Tube 4) 1 /MM3 (NONE) CSF Total Protein 60.0 MG/DL (15.0-45.0) Potassium Level 3.3 MEQ/L (3.5-5.1) Test 07/26/17 12:51 Imaging Last Impressions Thoracic Spine MRI 07/26/17 0000 Signed Impressions: Service Date/Time: July 13:25 - CONCLUSION: 1. The study is limited by motion artifact and the lack of contrast. 2. No abnormality appreciated. Natanael Parks Jr., MD Cervical Spine MRI 07/26/17 0000 Signed Impressions: Service Date/Time: July 13:25 - CONCLUSION: 1. Significantly limited study due to motion artifact. 2. Degenerative disc disease at C5-C6 and C6-C7 with suspected impression upon the cord. The cord is very limited in evaluation for signal change due to the motion. Natanael Parks Jr., MD Lumbar Puncture Fluoroscopy 07/25/17 0000 Signed Impressions: Service Date/Time: Tuesday, July 25, 2017 11:13 - CONCLUSION: Uncomplicated fluoroscopically guided lumbar puncture with pressures as above. Arron Tyler MD Brain MRI 07/24/17 0000 Signed Impressions: Service Date/Time: Monday, July 24, 2017 17:41 - CONCLUSION: 1. Senescent changes with mild small vessel ischemic white matter demyelination. 2. Otherwise, no acute abnormality. Morgan Gauthier MD Knee X-Ray 07/22/17 0000 Signed Impressions: Service Date/Time: Saturday, July 22, 2017 10:27 - CONCLUSION: No evidence of acute bony injury. Surgical findings related to ligature fixation of the patella with associated hypertrophic ossification about the patella.. Natanael Monge MD Renal Ultrasound 07/20/17 0000 Signed Impressions: Service Date/Time: Thursday, July 20, 2017 08:58 - CONCLUSION: 1. Small echogenic kidneys without obstruction 2. Sludge in the bladder. Post void residual suspected. Vince G. Miles, MD FACR Head CT [id number] Signed Impressions: Service Date/Time: July 19:37 - CONCLUSION: Normal examination. Clarence Gaston MD Chest X-Ray [id number] Signed Impressions: Service Date/Time: July 18:38 - CONCLUSION: No acute disease. Clarence Gaston MD PE at Discharge GENERAL: Resting comfortably. SKIN: Multiple skin tears over the skin surface. small abrasions noted on his knees, not signs of infection NECK: trachea midline. CARDIOVASCULAR: Regular rate and rhythm without murmurs RESPIRATORY: Breath sounds coarse bilaterally. No accessory muscle use. GASTROINTESTINAL: Abdomen soft, non-tender, nondistended. Active bowel sounds. MUSCULOSKELETAL: No edema. NEUROLOGICAL:AxOx3. Motor and sensory grossly within normal limits. Normal speech. No hallucinations Hospital Course Encephalopathy, likely HIV related vs toxic. Status post LP, CSF studies NGTD pls follow up pending results. Improved after minimizing benzos and narcotics. Dc IV acyclovir negative PCR in the CSF. Acute urinary retention Ultrasound the kidneys showed: Small echogenic kidneys without obstruction; Sludge in the bladder. Urology evaluated the pt and he is s/p Cystoscopy and placement of 20 [place] catheter - Continue Muller.on flomax. urine does look somewhat bloody - urine cx growing corynebacterium >100,000 cfu/ml. ID consult placed. Discontinue rocephin IV and f/u repeat urine culture Weakness The patient mentioned he has been crawling on the floor prior to admission. - Physical therapy did evaluate the patient and recommends rehab. CM consulted for d/c planning - B12 and TSH wnl. HIV The patient states he takes his medications regularly. - on home medications. Follow HIV PCR and CD4 count Hypertension Blood pressure well controlled at this time. - on home medications. Chronic kidney disease. Improving renal indices on IV hydration Creatinine is stable at this time. - Avoid nephrotoxic agents. FEN. PO and IVF Wd care PPx: Heparin will be restarted Pt Condition on Discharge: Stable Discharge Disposition: Discharge to SNF Discharge Time: > 30 minutes Discharge Instructions DIET: Follow Instructions for: As Tolerated, No Restrictions Activities you can perform: Regular-No Restrictions Activities to Avoid: Driving Follow up Referrals: Infectious Disease - 1 Week Neurology - 1 Week PCP Follow-up - 1 Week Psychiatry Adult - 1 Week Urology - 1 Week New Medications: Alprazolam (Xanax) 0.5 Mg Tab 0.5 MG PO Q8H PRN for anxiety, #10 TAB Clotrimazole Marcial (Clotrimazole Marcial) 10 Mg Troc 10 MG BUCCAL 5 TIMES A DAY for Infection, #60 MARCIAL Cyanocobalamin Inj (Cyanocobalamin Inj) 1,000 Mcg/Ml Inj 1000 MCG IM Q24H for vitamin, #3 INJECTION Cyanocobalamin Inj (Cyanocobalamin Inj) 1,000 Mcg/Ml Inj 1000 MCG IM Q7D for vitamin, #4 INJECTION start 08/06/17 Oxycodone (Oxycodone) 5 Mg Tab 2.5 MG PO Q4H PRN for pain 3-10 for 20 Days, #60 TAB Sennosides-Docusate Sodium (Gnp Senna Plus 8.6-50 mg) 8.6 Mg-50 Mg Tab 1 TAB PO BID for Constipation, #60 TAB Tamsulosin (Flomax) 0.4 Mg Cap 0.4 MG PO DAILY for Manage Prostate Problems, #30 CAP Continued Medications: Abacavir-Lamivudine (Abacavir-Lamivudine) 600-300 Mg Tab 1 TAB PO DAILY for Mgmt Viral Infection, #60 TAB 0 Refills Cyproheptadine (Cyproheptadine) 4 Mg Tab 8 MG PO HS for Allergy Management, #90 TAB 0 Refills Darunavir-Cobicistat (Prezcobix) 800-150 Mg Tab 1 TAB PO DAILY for Mgmt Viral Infection, #30 TAB 0 Refills DULOXETINE HCl (Cymbalta) 30 Mg Cap 30 MG PO HS Duloxetine HCl (Duloxetine HCl) 100 % Powder 30 MG PO HS Lisinopril (Lisinopril) 10 Mg Tab 10 MG PO DAILY, #30 TAB 0 Refills Mirtazapine (Mirtazapine) 45 Mg Tab 45 MG PO HS for Depression Control, #30 TAB 0 Refills Pravastatin Sod (Pravachol) 10 Mg Tab 40 MG PO DAILY UNKNOWN DOSE Quetiapine Fumarate (Seroquel) 300 Mg Tab 300 MG PO HS Trazodone (Trazodone) 150 Mg Tablet 150 MG PO HS for Control Depression, #30 TAB 0 Refills Abando,Harshil MD Jul 27, 2017 12:54
[2017-07-27 19:53] LABS: CSF CRYPTOCOCCUS ANTIGEN NOT DETECTED (NEGATIVE); VDRL CSF NON-REACTIVE (NON-REACTVE)
[2017-07-27] MEDS ORDERED: QUEtiapine FUMARATE 300 MG TAB PO SCH (21:00)
[2017-07-28 11:58] LABS: CSF CRYPTOCOCCUS AG CONF ND (NOT DETECTD)
[2017-08-06] MEDS ORDERED: CYANOCOBALAMIN 1000 MCG/ML VIAL IM SCH (20:00)
[2017-09-27] MEDS ORDERED: CYANOCOBALAMIN 1000 MCG/ML VIAL IM SCH (20:00)
== END 2017-07-27 18:14 | DRG 695 ==
LOC: NEPE 15:43 → NEDA 21:57 → NEDH 07-20 04:21 → N05B 07-20 10:48
PROVIDERS: ADMIT Internal Medicine; ATTEND Internal Medicine
PROC: 0T9B80Z Drainage of Bladder with Drainage Device, Via Natural or Artificial Opening Endoscopic (ICD-10-PCS; 2017-07-20)
PROC: 0TJB8ZZ Inspection of Bladder, Via Natural or Artificial Opening Endoscopic (ICD-10-PCS; principal; 2017-07-20 14:44)
PROC: 009U3ZX Drainage of Spinal Canal, Percutaneous Approach, Diagnostic (ICD-10-PCS; 2017-07-25)
PROC: B01BZZZ Fluoroscopy of Spinal Cord (ICD-10-PCS; 2017-07-25)
DX: R33.9 Retention of urine, unspecified (principal); B20 Human immunodeficiency virus [HIV] disease; G93.49 Other encephalopathy; M62.82 Rhabdomyolysis; Z79.899 Other long term (current) drug therapy; Z79.891 Long term (current) use of opiate analgesic; R53.1 Weakness; I12.9 Hypertensive chronic kidney disease with stage 1 through stage 4 chronic kidney disease, or unspecified chronic kidney disease; N18.9 Chronic kidney disease, unspecified; F31.9 Bipolar disorder, unspecified; E53.8 Deficiency of other specified B group vitamins; T14.8XXA Other injury of unspecified body region, initial encounter; X58.XXXA Exposure to other specified factors, initial encounter; W19.XXXA Unspecified fall, initial encounter; Z66 Do not resuscitate
CPT/HCPCS: 62270; 70450; 70551; 71045; 72141; 72146; 73564; 76775; 77003; 80048; 80053; 80307; 81001; 82140; 82550; 82552; 82607; 82945; 83735; 83873; 83921; 84157; 84425; 84443; 84484; 85025; 85610; 85652; 85730; 86038; 86140; 86355; 86357; 86359; 86360; 86403; 86592; 87070; 87086; 87205; 87498; 87529; 87536; 88108; 89051; 93005; 94664; 95819; 96360; 96361; C1769; J0133; J0696; J1100; J1644; J1885; J2060; J2405; J3010; J3411; J3420; J3480; J7030; J7042

== ENCOUNTER 2017-08-27 20:34 | Inpatient (IN) | payer MEDICARE ==
[~2017-08-27] VITALS: Ht 175.3 cm; Wt 99.0 kg
[~2017-08-27 20:34] MED LIST changes: +ABAC1TAB7 PO; +ALPR.5 PO; +ALPR1TAB3 PO; +CLOT10TR BUCCAL; -COMBTAB PO; -COUM5TAB PO; +CYAN1000P IM; +DARU1TAB2 PO; +HYDR-3583 PO; -HYDR10TA16 PO; -LAMO25 PO; +LISI10TA3 PO; -LORT5TAB PO; +MECL-62 PO; +MIRT45TA PO; -NIAC500 PO; +OXYC-392 PO; +PERI PO; +PRAV10TA PO; +QUET1TAB10 PO; +TAMS5CAP PO; +TRAZ1TAB14 PO; +[UNRECOGNIZED DRUG - CODE] PO; -[UNRECOGNIZED DRUG - CODE] PO
[2017-08-27] MEDS ORDERED: SODIUM CHLOR 0.9% 1000 ML INJ 1,000 ML IV ONE ×3 (20:45→23:00)
[2017-08-27 20:46] VITALS: BP 117/69; PULSE 128; RESP 16; TEMP 98.4; O2SAT 97
[2017-08-27 20:49] VITALS: RESP 18; O2SAT 97
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
[2017-08-27 21:44] LABS: AUTOMATED NEUTROPHIL # 3.6 TH/MM3 (1.8-7.7); BASOPHIL % 0.3 % (0.0-2.0); EOSINOPHIL % 0.2 % (0.0-4.0); HEMATOCRIT 29.3 % (39.0-51.0); LYMPH % 20.9 % (9.0-44.0); LYMPHOCYTE # 1.1 TH/MM3 (1.0-4.8); MEAN CELL VOLUME 98.5 FL (80.0-100.0); MEAN CORPUSCULAR HEMOGLOBIN 33.6 PG (27.0-34.0); MEAN CORPUSCULAR HGB CONC 34.1 % (32.0-36.0); MEAN PLATELET VOLUME 6.6 FL (7.0-11.0); MONO % 10.1 % (0.0-8.0); MONOCYTE # 0.5 TH/MM3 (0-0.9); NEUT % 68.5 % (16.0-70.0); PLATELET COUNT 254 TH/MM3 (150-450); RED BLOOD COUNT 2.97 MIL/MM3 (4.50-5.90); RED CELL DISTRIBUTION WIDTH 16.3 % (11.6-17.2); WHITE BLOOD COUNT 5.2 TH/MM3 (4.0-11.0)
--- NOTE | 2017-08-27 21:51 | RADRPT ---
EXAM DATE/TIME: 08/27/2017 20:58 [facility] COMPARISON: CHEST SINGLE AP, July 19, 2017, 18:38. INDICATIONS : Fever. MEDICAL HISTORY : Hepatitis A. HIV. Leukemia. SURGICAL HISTORY : None. ENCOUNTER: Initial ACUITY: 1 day PAIN SCORE: 0/10 LOCATION: Bilateral chest FINDINGS: There is mild ill-defined basilar airspace disease most characteristic of bronchopneumonia. No effusi on. No pneumothorax. Heart size mildly enlarged. CONCLUSION: 1. Ill-defined basilar airspace disease most characteristic of bronchopneumonia. Clarence Gaston MD on August 27, 2017 at 21:47 Board Certified Radiologist. This report was verified electronically.
[2017-08-27 21:56] LABS: PROTHROMBIN TIME - PATIENT 10.5 SEC (9.8-11.6)
[2017-08-27 22:07] LABS: ALBUMIN 2.6 GM/DL (3.4-5.0); AST (GOT) 98 U/L (15-37); BICARBONATE 24.1 MEQ/L (21.0-32.0); BLOOD UREA NITROGEN 16 MG/DL (7-18); CALCIUM 8.1 MG/DL (8.5-10.1); CHLORIDE 106 MEQ/L (98-107); CREATININE 1.25 MG/DL (0.60-1.30); GLOMERULAR FILTRATION RATE 58 ML/MIN (>89); GLUCOSE,RANDOM 83 MG/DL (74-106); MAGNESIUM 1.9 MG/DL (1.5-2.5); SODIUM (NA) 140 MEQ/L (136-145)
[2017-08-27 22:08] LABS: ALT (GPT) 24 U/L (12-78)
--- NOTE | 2017-08-27 22:12 | RADRPT ---
EXAM DATE/TIME: 08/27/2017 21:27 [facility] COMPARISON: KNEE LEFT COMPLETE (4VWS), July 22, 2017, 10:27. INDICATIONS : Left knee pain from unknown injury, possible infection. Trace joint fluid present. MEDICAL HISTORY : Hepatitis A. HIV. Leukemia. SURGICAL HISTORY : Left knee surgery. ENCOUNTER: Initial ACUITY: 1 day PAIN SCORE: 10/10 LOCATION: Left knee. FINDINGS: There is a remote patellar fracture with cerclage wire fixation extending from the patella to the tib ial tuberosity. Trace joint fluid present. No acute fracture or dislocation. CONCLUSION: 1. Previous patellar surgery as above. Trace joint fluid. No acute bony abnormality. No significant c hange since July 22. Clarence Gaston MD on August 27, 2017 at 22:08 Board Certified Radiologist. This report was verified electronically.
[2017-08-27 22:22] LABS: ALKALINE PHOSPHATASE 104 U/L (45-117); TOTAL BILIRUBIN ADULT 0.5 MG/DL (0.2-1.0); TOTAL PROTEIN 6.7 GM/DL (6.4-8.2); TROPONIN I 0.02 NG/ML (0.02-0.05)
--- NOTE | 2017-08-27 22:27 | RADRPT ---
EXAM DATE/TIME: 08/27/2017 22:04 [facility] COMPARISON: No previous studies available for comparison. INDICATIONS : Altered mental status. RADIATION DOSE: 40.38 CTDIvol (mGy) MEDICAL HISTORY : Cardiovascular disease. Hypertension. Throat cancer SURGICAL HISTORY : None. ENCOUNTER: Initial ACUITY: 1 day PAIN SCALE: 0/10 LOCATION: cranial TECHNIQUE: Multiple contiguous axial images were obtained of the head. Using automated exposure control and adj ustment of the mA and/or kV according to patient size, radiation dose was kept as low as reasonably a chievable to obtain optimal diagnostic quality images. DICOM format image data is available electro nically for review and comparison. FINDINGS: CEREBRUM: The ventricles are normal for age. No evidence of midline shift, mass lesion, hemorrhage or acute in farction. No extra-axial fluid collections are seen. POSTERIOR FOSSA: The cerebellum and brainstem are intact. The 4th ventricle is midline. The cerebellopontine angle i s unremarkable. EXTRACRANIAL: The visualized portion of the orbits is intact. SKULL: The calvaria is intact. No evidence of skull fracture. CONCLUSION: 1. No acute findings. Clarence Gaston MD on August 27, 2017 at 22:23 Board Certified Radiologist. This report was verified electronically.
[2017-08-27] MEDS ORDERED: CALCIUM CARBONATE 500 MG CHEWABLE TAB CHEW ONE (22:30)
[2017-08-27] MEDS ORDERED: PIPERACIL-TAZO 4.5 GM PREMIX 100 ML IV ONE (22:45)
[2017-08-27] MEDS ORDERED: VANCOMYCIN INJ 1,000 MG in SODIUM CHLOR 0.9% 250 ML INJ 250 ML IV SCH (22:45)
[2017-08-27 22:48] VITALS: BP 94/55; PULSE 115; RESP 14; O2SAT 99
--- NOTE | 2017-08-27 23:04 | PD ---
Data Data Last Documented VS Vital Signs Date Time Temp Pulse Resp B/P (MAP) Pulse Ox O2 Delivery O2 Flow Rate FiO2 08/27/17 23:31 116 14 99/58 (72) 100 Room Air 08/27/17 20:46 98.4 Orders Orders Sepsis Workup Initiated (08/27/17 ) Electrocardiogram (08/27/17 20:45) Complete Blood Count With Diff (08/27/17 20:45) Comprehensive Metabolic Panel (08/27/17 20:45) Prothrombin Time / Inr (Pt) (08/27/17 20:45) Act Partial Throm Time (Ptt) (08/27/17 20:45) Lactic Acid Sepsis Protocol (08/27/17 20:45) Magnesium (Mg) (08/27/17 20:45) Ckmb (Isoenzyme) Profile (08/27/17 20:45) Troponin I (08/27/17 20:45) Urinalysis - C+S If Indicated (08/27/17 20:45) Blood Culture (08/27/17 20:45) Chest, Single Ap (08/27/17 20:45) Blood Glucose (08/27/17 20:45) Ecg Monitoring (08/27/17 20:45) Iv Access Insert/Monitor (08/27/17 20:45) Oximetry (08/27/17 20:45) Oxygen Administration (08/27/17 20:45) Sodium Chlor 0.9% 1000 Ml Inj (Ns 1000 M (08/27/17 20:45) Sodium Chlor 0.9% 1000 Ml Inj (Ns 1000 M (08/27/17 20:45) B-Type Natriuretic Peptide (08/27/17 21:00) Knee, Complete (4vws) (08/27/17 21:08) Ice/Cold Pack (08/27/17 21:08) Ct Brain W/O Iv Contrast(Rout) (08/27/17 21:08) Electrocardiogram (08/27/17 ) CKMB (08/27/17 21:00) CKMB% (08/27/17 21:00) Calcium Carbonate Chew (Tums Chew) (08/27/17 22:30) Vancomycin Inj (Vancomycin Inj) (08/27/17 22:45) Piperacil-Tazo 4.5 Gm Premix (Zosyn 4.5 (08/27/17 22:45) Sodium Chlor 0.9% 1000 Ml Inj (Ns 1000 M (08/27/17 23:00) Us Leg Venous Doppler (08/27/17 23:30) Diltiazem Inj (Cardizem Inj) (08/27/17 23:45) Admit Order (Ed Use Only) (08/27/17 23:35) Labs Laboratory Tests Test 08/27/17 21:00 White Blood Count 5.2 TH/MM3 Red Blood Count 2.97 MIL/MM3 Hemoglobin 10.0 GM/DL Hematocrit 29.3 % Mean Corpuscular Volume 98.5 FL Mean Corpuscular Hemoglobin 33.6 PG Mean Corpuscular Hemoglobin Concent 34.1 % Red Cell Distribution Width 16.3 % Platelet Count 254 TH/MM3 Mean Platelet Volume 6.6 FL Neutrophils (%) (Auto) 68.5 % Lymphocytes (%) (Auto) 20.9 % Monocytes (%) (Auto) 10.1 % Eosinophils (%) (Auto) 0.2 % Basophils (%) (Auto) 0.3 % Neutrophils # (Auto) 3.6 TH/MM3 Lymphocytes # (Auto) 1.1 TH/MM3 Monocytes # (Auto) 0.5 TH/MM3 Eosinophils # (Auto) 0.0 TH/MM3 Basophils # (Auto) 0.0 TH/MM3 CBC Comment DIFF FINAL Differential Comment Prothrombin Time 10.5 SEC Prothromb Time International Ratio 1.0 RATIO Activated Partial Thromboplast Time 25.0 SEC Blood Urea Nitrogen 16 MG/DL Creatinine 1.25 MG/DL Random Glucose 83 MG/DL Total Protein 6.7 GM/DL Albumin 2.6 GM/DL Calcium Level 8.1 MG/DL Magnesium Level 1.9 MG/DL Alkaline Phosphatase 104 U/L Aspartate Amino Transf (AST/SGOT) 98 U/L Alanine Aminotransferase (ALT/SGPT) 24 U/L Total Bilirubin 0.5 MG/DL Sodium Level 140 MEQ/L Potassium Level 3.6 MEQ/L Chloride Level 106 MEQ/L Carbon Dioxide Level 24.1 MEQ/L Anion Gap 10 MEQ/L Estimat Glomerular Filtration Rate 58 ML/MIN Lactic Acid Level 1.8 mmol/L Total Creatine Kinase 5534 U/L Creatine Kinase MB 32.1 NG/ML Creatine Kinase MB % 0.6 % Troponin I 0.02 NG/ML B-Type Natriuretic Peptide 48 PG/ML [facility] Medical Record Reviewed: Yes Supervised Visit with ROSALINE: Yes Interpretation(s) Last Impressions Lower Extremity Ultrasound 08/27/[id number] Signed Impressions: Service Date/Time: Monday, August 28, 2017 01:07 - CONCLUSION: Soft tissue swelling without deep venous thrombosis. Rene Noel MD Knee X-Ray [id number] Signed Impressions: Service Date/Time: Sunday, August 27, 2017 21:27 - CONCLUSION: 1. Previous patellar surgery as above. Trace joint fluid. No acute bony abnormality. No significant change since July 22. Clarence Gaston MD Head CT [id number] Signed Impressions: Service Date/Time: Sunday, August 27, 2017 22:04 - CONCLUSION: 1. No acute findings. Clarence Gaston MD Chest X-Ray 08/27/[id number] Signed Impressions: Service Date/Time: Sunday, August 27, 2017 20:58 - CONCLUSION: 1. Ill-defined basilar airspace disease most characteristic of bronchopneumonia. Clarence Gaston MD Narrative Course I, Dr. Collazo, have reviewed the advance practice practitioner's documentation and am in agreement, met with the patient face to face, made the diagnosis, and the medical decision making was done by me. The patient was initially evaluated by Lamar, the physician daycare assistant. Please see their complete history and physical. *My assessment and Findings: The patient presents with a history of generalized weakness with lower extremity edema. The patient was noted to be tachycardic prior to arrival. During the course of the patient's emergency department visit, the patient's history, examination, and differential diagnosis were reviewed with the patient. The patient was placed on a monitoring coordinator with oximetry and frequent blood pressure monitoring. The patient had IV access obtained and blood work sent for analysis. The patient had an EKG done that shows tachycardia, suspicious for atrial flutter with an incomplete right bundle branch block, QRS duration 99 ms, QTC 410 ms. The patient was initially provided normal saline IV fluid as a bolus. The patient's laboratory studies were reviewed and remarkable for a white count of 5.2, hemoglobin 10, platelets 254 with 10.1 monocytes, CMP is remarkable for GFR 58, calcium 8.1, AST 98, CPK is 5534 consistent with rhabdomyolysis, CK-MB 0.6, BNP 48, troponin I 0.02. PT 10.5, PTT 25. Radiology studies were reviewed and remarkable for a chest x-ray that shows an ill-defined basilar airspace disease most characteristic of bronchopneumonia. There was a concern for sepsis in this patient who is immunocompromise, therefore the patient was started on broad-spectrum antibiotic after blood cultures 2 were drawn. The patient additionally was given Cardizem for atrial flutter to control his rate. The patient's results were discussed with the patient, including the plan of care. I explained that further testing and/ or monitoring is indicated based on the patient's history, examination, and/ or laboratory findings. Therefore, I recommended admission for additional evaluation. The patient expressed understanding and was agreeable with this plan. The patient was admitted to the hospital in guarded condition and sent to a bed under the care of the [place] [facility]. Diagnosis Primary Impression: Rhabdomyolysis Qualified Codes: M62.82 - Rhabdomyolysis Additional Impression: Pneumonia Qualified Codes: J18.1 - Lobar pneumonia, unspecified organism Admitting Information Admitting Physician Requests: Keri Mcnamara MD Aug 27, 2017 23:04
[2017-08-27 23:31] VITALS: BP 99/58; PULSE 116; RESP 14; O2SAT 100
[2017-08-27] MEDS ORDERED: DILTIAZEM HCL 25 MG/5 ML VIAL IV ONE (23:45)
[2017-08-27] MEDS ORDERED: DILTIAZEM HCL 50 MG/10 ML VIAL IV ONE (23:45)
[2017-08-27] MEDS ORDERED: DILTIAZEM HCL 50 MG/10 ML VIAL ONE (23:58)
[2017-08-28] VITALS (10 sets, daily range): BP systolic 94–110; BP diastolic 56–71; PULSE 87–116; RESP 16–20; TEMP 97.1–99.4; O2SAT 93–98
--- NOTE | 2017-08-28 01:39 | RADRPT ---
EXAM DATE/TIME: 08/28/2017 01:07 [facility] COMPARISON: No previous studies available for comparison. INDICATIONS : Left leg swelling. MEDICAL HISTORY : [place]. Hypertension. Arthritis. Osteoporosis. Leukiemia. Lymphoma. Throat cancer. HIV. Hep A. CHF. SURGICAL HISTORY : Perirectal abcess removal. Left knee surgery. ENCOUNTER: Initial ACUITY: 1 day PAIN SCORE: 2/10 LOCATION: Left leg. TECHNIQUE: Venous ultrasound of the leg was performed from the inguinal ligament to the proximal calf. Real-ar e, color Doppler and spectral tracing, compression and augmentation techniques were used. FINDINGS: There is normal compressibility of the deep venous system from the inguinal region to the proximal ca lf. No echogenic clot is seen in the lumen of the common femoral, femoral, popliteal, and posterior tibial veins. There is a normal response of the venous system to proximal and distal augmentation an d respiration. CONCLUSION: Soft tissue swelling without deep venous thrombosis. Rene Noel MD on August 28, 2017 at 1:37 Board Certified Radiologist. This report was verified electronically.
[2017-08-28] MEDS ORDERED: NALOXONE HCL 0.4 MG/ML AMP IV PUSH PRN (01:45)
[2017-08-28] MEDS ORDERED: ACETAMINOPHEN 325 MG TAB PO PRN (01:45)
[2017-08-28] MEDS ORDERED: SODIUM CHLORIDE 0.9% FLUSH 10 ML FLUSH IV FLUSH PRN (01:45)
[2017-08-28] MEDS ORDERED: PROCHLORPERAZINE 25 MG SUPP RECTAL PRN (01:45)
[2017-08-28] MEDS ORDERED: RESP: ALBUTEROL 2.5 MG/IPRATROPIUM 0.5 MG NEB (PRN) INH (01:45)
[2017-08-28] MEDS ORDERED: AZITHROMYCIN INJ 500 MG in SODIUM CHLOR 0.9% 250 ML INJ 250 ML IV SCH (02:00)
[2017-08-28] MEDS ORDERED: cefTRIAXone INJ 1,000 MG in SODIUM CHLORIDE 0.9% INJ 100 ML IV SCH (03:00)
[2017-08-28] MEDS: SODIUM CHLOR 0.9% 1000 ML INJ 1,000 ML IV SCH ×4 (03:10→22:28)
[2017-08-28] MEDS: RESP: ALBUTEROL 2.5 MG/IPRATROPIUM 0.5 MG NEB (SCH) INH ×4 (03:29→21:17)
[2017-08-28 04:07] LABS: TROPONIN I 0.02 NG/ML (0.02-0.05)
[2017-08-28] MEDS: HEPARIN SODIUM - SQ 10,000 UNITS/ML VIAL SQ SCH ×3 (06:05→20:45)
[2017-08-28] MEDS: SODIUM CHLORIDE 0.9% FLUSH 10 ML FLUSH IV FLUSH SCH ×2 (09:00→20:45)
--- NOTE | 2017-08-28 09:13 | MB ---
cc: Arron Lindo MD DATE: 08/28/2017 HISTORY OF PRESENT ILLNESS: This is a 67-year-old gentleman who is admitted to the hospital after tripping and falling. Apparently, was tripped up by his dog, fell and hit his head and injured his head and his arm. He came to the emergency department with some soft tissue swelling of his lower extremity. No DVT was noted and his head CT was otherwise unremarkable. He does have a history of HIV for 32 years. Chest x-ray suggested ill-defined patchy infiltrate, possibly consistent with pneumonia, as well, and his laboratory examination was found to have an elevated CPK up to 5500, subsequently has been admitted. We have been asked to see him in that he has developed atrial flutter with a heart rate response of 100-120. No prior history of heart disease has been present. Denies any chest pain or shortness of breath. No cough or sputum production has been present. He was recently in the hospital 2 weeks ago with a urinary tract infection and urinary obstruction. At that time, he was noted to have rather marked rhabdomyolysis with a CPK of 15,000. He was subsequently diuresed. His renal function today is 1.25 and his CPK on admission was 5500. He has been taking both pravastatin as well as Seroquel, which may have contributed to his rhabdomyolysis. MEDICATIONS: His other medications have included a long list, including trazodone, cyproheptadine, Prezcobix and Abacavir for his HIV, as well as Cymbalta and Desyrel, Remeron, lisinopril and hydrocodone as needed. ALLERGIES: EMTRICITABINE, TENOFOVIR. SOCIAL HISTORY: The patient smokes 1 cigar per day. He does not use recreational drugs or drink alcohol. PHYSICAL EXAMINATION: GENERAL: He is awake and alert. VITAL SIGNS: Afebrile. Heart rate is approximately 100, blood pressure is 110/70, pulse ox is 96% on room air. NECK: There is no neck vein distention. LUNGS: Essentially clear. CARDIOVASCULAR: Reveals a regular rhythm with no significant murmur or gallop. ABDOMEN: Soft without tenderness. EXTREMITIES: There is some swelling in his lower extremity. ASSESSMENT AND PLAN: The patient has developed new onset of atrial flutter. We have ordered an echocardiogram. His electrolytes are essentially normal, although potassium is borderline low at 3.6. I have given him a small dose of metoprolol to see if we can slow his heart rate down and we will hold off on antiarrhythmics until such time as his CPK is back to normal. Certainly would discontinue the use of both his Seroquel and his pravastatin in view of his recurrent episodes of rhabdomyolysis. At this point in time, no evidence for heart failure is present. His BNP is 48. We await with interest his echocardiogram and we will follow along with you. MD JO ANN Casillas/TL/ , 08:07 AM , 08:35 AM
[2017-08-28] MEDS: METOPROLOL TARTRATE 25 MG TAB PO SCH ×2 (09:31→20:45)
--- NOTE | 2017-08-28 10:10 | HHI.HP ---
[facility] Sandi Pastrana MD Admission Diagnosis rhabdomyolysis, pneumonia, lower extremities cellulitis Diagnoses: Chief Complaint: Weakness in left leg Travel History International Travel<30 Days: No Contact w/Intl Traveler <30 Da: No Traveled to Known Affected Are: No History of Present Illness 67-year-old white male being admitted for rhabdomyolysis and recurrent lower extremity edema. Patient states he was in his usual state of health until yesterday when he says he was walking and apparently tripped over his dog with his left foot and felt his left knee completely giveaway. He says he has trouble getting up afterwards and his pediatric psychiatrist call 911. Patient denies having any chest pain shortness of breath or lightheadedness surrounding the incident. He also reports having a new onset wet productive cough for the past 2 days and recurring worsening lower extremity edema within the past week. He does report having some gradually increasing weakness in his left lower leg over the past few weeks; his left leg is also red. Review of Systems Except as stated in HPI: all other systems reviewed are Neg Past Family Social History Past Medical History Recent hospitalization for acute urinary retention HIV Past Surgical History Left patellar surgery Allergies: Coded Allergies: emtricitabine (Unverified Adverse Reaction, Severe, AMS, N&V, H/A, LEG SWELLING, 08/27/17) tenofovir (Unverified Adverse Reaction, Severe, AMS, N&V, H/A, LEG SWELLING, 08/27/17) Family History Cancer unspecified per patient Social History Lives with a "pediatric psychiatrist" for many years. Stop smoking a few years ago, stopped drinking about 20 years ago. Does not work, is not looking for work. Physical Exam Vital Signs Vital Signs Date Time Temp Pulse Resp B/P (MAP) Pulse Ox O2 Delivery O2 Flow Rate FiO2 08/28/17 08:46 98 21 08/28/17 08:00 98.5 110 19 104/71 (82) 95 08/28/17 05:53 111 08/28/17 04:41 97.1 111 20 110/70 (83) 96 08/28/17 04:21 08/28/17 03:20 98.7 98 16 107/61 (76) 98 Room Air 08/28/17 03:15 98 08/27/17 23:31 116 14 99/58 (72) 100 Room Air 08/27/17 22:48 115 14 94/55 (68) 99 Room Air 08/27/17 20:49 97 Room Air 08/27/17 20:49 18 97 Room Air 08/27/17 20:46 98.4 128 16 117/69 (85) 97 Physical Exam VS: afebrile GENERAL: No acute distress, lying in bed, awake, alert SKIN: Warm and dry. tender and erythematous area over left lower leg EYES: No scleral icterus. No injection or drainage. ENT: No nasal bleeding or discharge. NC CARDIOVASCULAR: Regular rate and rhythm. no murmurs RESPIRATORY: No accessory muscle use. rales and rhonchi over RL GASTROINTESTINAL: Abdomen soft, non-tender, nondistended. Hepatic and splenic margins not palpable. Extremities: No clubbing, cyanosis. Moderate BL LE edema MUSCULOSKELETAL: 2/5 strength on LL prox and 3/5 on the right; adequate muscle bulk and tone for age and habitus NEUROLOGICAL: Awake and alert. No obvious cranial nerve deficits. No facial droop nor slurred speech noted. PSYCHIATRIC: Appropriate mood and affect; insight and judgment normal. Laboratory Laboratory Tests Test 08/27/17 21:00 08/28/17 03:22 White Blood Count 5.2 Red Blood Count 2.97 Hemoglobin 10.0 Hematocrit 29.3 Mean Corpuscular Volume 98.5 Mean Corpuscular Hemoglobin 33.6 Mean Corpuscular Hemoglobin Concent 34.1 Red Cell Distribution Width 16.3 Platelet Count 254 Mean Platelet Volume 6.6 Neutrophils (%) (Auto) 68.5 Lymphocytes (%) (Auto) 20.9 Monocytes (%) (Auto) 10.1 Eosinophils (%) (Auto) 0.2 Basophils (%) (Auto) 0.3 Neutrophils # (Auto) 3.6 Lymphocytes # (Auto) 1.1 Monocytes # (Auto) 0.5 Eosinophils # (Auto) 0.0 Basophils # (Auto) 0.0 CBC Comment DIFF FINAL Differential Comment Prothrombin Time 10.5 Prothromb Time International Ratio 1.0 Activated Partial Thromboplast Time 25.0 Blood Urea Nitrogen 16 Creatinine 1.25 Random Glucose 83 Total Protein 6.7 Albumin 2.6 Calcium Level 8.1 Magnesium Level 1.9 Alkaline Phosphatase 104 Aspartate Amino Transf (AST/SGOT) 98 Alanine Aminotransferase (ALT/SGPT) 24 Total Bilirubin 0.5 Sodium Level 140 Potassium Level 3.6 Chloride Level 106 Carbon Dioxide Level 24.1 Anion Gap 10 Estimat Glomerular Filtration Rate 58 Lactic Acid Level 1.8 Total Creatine Kinase 5534 4667 Creatine Kinase MB 32.1 26.1 Creatine Kinase MB % 0.6 0.6 Troponin I 0.02 0.02 B-Type Natriuretic Peptide 48 Date/Time Source Procedure Growth Status 08/27/17 21:00 Blood Peripheral Aerobic Blood Culture Pending Received 08/27/17 21:00 Blood Peripheral Anaerobic Blood Culture Pending Received Result Diagram: 08/27/[id number]/27/172099 Imaging Last Impressions Knee X-Ray 08/27/172107 Signed Impressions: Service Date/Time: Sunday, August 27, 2017 21:27 - CONCLUSION: 1. Previous patellar surgery as above. Trace joint fluid. No acute bony abnormality. No significant change since July 22. Clarence Gaston MD Head CT 08/27/172107 Signed Impressions: Service Date/Time: Sunday, August 27, 2017 22:04 - CONCLUSION: 1. No acute findings. Clarence Gaston MD Chest X-Ray 08/27/[id number] Signed Impressions: Service Date/Time: Sunday, August 27, 2017 20:58 - CONCLUSION: 1. Ill-defined basilar airspace disease most characteristic of bronchopneumonia. Clarence Gaston MD Capabdirashidi VTE Risk Assessment Caprini VTE Risk Assessment: Mod/High Risk (score >= 2) Caprini Risk Assessment Model Point Value = 1 Point Value = 2 Point Value = 3 Point Value = 5 Age 41-60 Minor surgery BMI > 25 kg/m2 Swollen legs Varicose veins or History of unexplained or recurrent spontaneous Oral contraceptives or hormone replacement Sepsis (< 1 month) Serious lung disease, including pneumonia (< 1 month) Abnormal pulmonary function Acute myocardial infarction Congestive heart failure (< 1 month) History of inflammatory bowel disease Medical patient at bed rest Age 61-74 Arthroscopic surgery Major open surgery (> 45 min) Laparoscopic surgery (> 45 min) Malignancy Confined to bed (> 72 hours) Immobilizing plaster cast Central venous access Age >= 75 History of VTE Family history of VTE Factor V Leiden Prothrombin [id number] Lupus anticoagulant Anticardiolipin antibodies Elevated serum homocysteine Heparin-induced thrombocytopenia Other congenital or acquired thrombophilia Stroke (< 1 month) Elective arthroplasty Hip, pelvis, or leg fracture Acute spinal cord injury (< 1 month) Prophylaxis Regimen Total Risk Factor Score Risk Level Prophylaxis Regimen 0-1 Low Early ambulation 2 Moderate Order ONE of the following: *Sequential Compression Device (SCD) *Heparin 5000 units SQ BID 3-4 Higher Order ONE of the following medications: *Heparin 5000 units SQ TID *Enoxaparin/Lovenox 40 mg SQ daily (WT < 150 kg, CrCl > 30 mL/min) *Enoxaparin/Lovenox 30 mg SQ daily (WT < 150 kg, CrCl > 10-29 mL/min) *Enoxaparin/Lovenox 30 mg SQ BID (WT < 150 kg, CrCl > 30 mL/min) AND/OR *Sequential Compression Device (SCD) 5 or more Highest Order ONE of the following medications: *Heparin 5000 units SQ TID (Preferred with Epidurals) *Enoxaparin/Lovenox 40 mg SQ daily (WT < 150 kg, CrCl > 30 mL/min) *Enoxaparin/Lovenox 30 mg SQ daily (WT < 150 kg, CrCl > 10-29 mL/min) *Enoxaparin/Lovenox 30 mg SQ BID (WT < 150 kg, CrCl > 30 mL/min) AND *Sequential Compression Device (SCD) Assessment and Plan Problem List: (1) Bilateral leg edema ICD Code: R60.0 - Localized edema (2) Rhabdomyolysis ICD Code: M62.82 - Rhabdomyolysis Status: Acute (3) HIV (human immunodeficiency virus infection) ICD Code: B20 - Human immunodeficiency virus [HIV] disease Status: Chronic Assessment and Plan Rhabdomyolysis -CK levels around 5000, now at 4000, continue IV fluids, monitor I and O given echo results aren't back yet -differential includes HIV followed by polypharmacy - D/w with pharmacy, namely statin, Seroquel, abacavir, Remeron -I will hold these medications for now -unlikely ETOH as cause -CK and BMP in AM Weakness in legs - likely 2/2 rhabdo; ordering PT, fall precautions, tx as above LE edema - possible CHF, echo pending, IV Lasix, intake and output Afib - lopressor per cards Possible LLL cellulitis - continue zosyn, starting vanc Possible PNA - clinical PNA. I independently reviewed the chest x-ray and I am not impressed for any particular infiltrates however clinically he does have the symptoms. - cover for HCAP with zosyn and vanc as above; stopping Rocephin and azithromycin HIV - resume home meds for now but I will consult infectious disease given that the patient may have 2 superimposed infections (as above) as well as seeking recommendations for alternative HIV meds to be less toxic to musculature if possible/appropriate. Bipolar disorder with depression -Resume home duloxetine and trazodone, holding Remeron and Seroquel in light of rhabdomyolysis Physician Certification 2 Midnight Certification Type: Admission for Inpatient Services Order for Inpatient Services The services are ordered in accordance with Medicare regulations or non- Medicare payer requirements, as applicable. In the case of services not specified as inpatient-only, they are appropriately provided as inpatient services in accordance with the 2-midnight benchmark. Estimated LOS (days): 2 2 days is the estimated time the patient will need to remain in the hospital, assuming treatment plan goals are met and no additional complications. Post-Hospital Plan: Not yet determined Kiet Xie MD Aug 28, 2017 10:10
[2017-08-28] MEDS ORDERED: Vancomycin Consult Pharmacy 1 EA OTHER SCH (10:15)
[2017-08-28] MEDS ORDERED: DARU1TAB2 PO (10:29)
[2017-08-28] MEDS ORDERED: PRAV40TA2 PO (10:29)
[2017-08-28] MEDS ORDERED: ABACAVIR LAMIVUDINE PO SCH (10:30)
[2017-08-28 12:09] LABS: TROPONIN I LESS THAN 0.02 NG/ML (0.02-0.05)
[2017-08-28] MEDS ORDERED: POTASSIUM CHLORIDE 10 MEQ CONTROLLED RELEASE TAB PO ONE (12:30)
[2017-08-28] MEDS: LISINOPRIL 10 MG TAB PO SCH (12:30)
[2017-08-28] MEDS ORDERED: FUROSEMIDE 40 MG/4 ML VIAL IV PUSH ONE (12:30)
[2017-08-28] MEDS ORDERED: DULoxetine HCl DR 60 MG CAP PO SCH (12:45)
[2017-08-28] MEDS: PIPERACIL-TAZO 3.375 GM PREMIX 50 ML IV SCH ×3 (12:58→22:28)
[2017-08-28] MEDS: ACETAMINOPHEN/HYDROcodone 325 MG/10 MG TAB PO PRN (12:59)
[2017-08-28] MEDS: ALPRAZolam 1 MG TAB PO SCH ×3 (12:59→22:29)
[2017-08-28] MEDS ORDERED: PREZCOBIX PO SCH (13:00)
--- NOTE | 2017-08-28 14:25 | EKG ---
Date Performed: 08/27/2017 Time Performed: 20:44:42 PTAGE: 67 years EKG: ATRIAL FIBRILLATION WITH RAPID VENTRICULAR RESPONSE BORDERLINE RIGHT AXIS DEVIATION MARKED ST ELEVATION, CONSIDER INFERIOR INJURY ACUTE CT Clinical correlation is strongly recommended PREVIOUS TRACING : 07/19/17 DOCTOR: Claude Lima Interpretating Date/Time 08/28/2017 14:24:31
--- NOTE | 2017-08-28 14:27 | EKG ---
Date Performed: 08/28/2017 Time Performed: 10:01:40 PTAGE: 67 years EKG: ATRIAL FLUTTER/TACHYCARDIA WITH RAPID VENTRICULAR RESPONSE NONSPECIFIC ST ELEVATION Slight ST elevation in the lateral leads is also noted, possible extension of ischemia ABNORMAL RHYTHM ECG PREVIOUS TRACING : 08/28/2017 03.39 DOCTOR: Claude Lima Interpretating Date/Time 08/28/2017 14:25:29
--- NOTE | 2017-08-28 14:49 | ECHRPT ---
Indication: Paroxysmal atrial fibrillation CONCLUSIONS The left ventricular systolic function is low normal with an estimated ejection fraction in the rang e of 50- 55%. Wall thickness is measured at the upper limits of normal. Normal left ventricular size. technically limited study aortic valve sclerosis BP: 110 / 70 HR: 111 Rhythm: Other MEASUREMENTS (Male / Female) Normal Values Technical Quality:Fair 2D ECHO LV Diastolic Diameter PLAX 5.3 cm 4.2 - 5.9 / 3.9 - 5.3 cm LV Systolic Diameter PLAX 4.1 cm IVS Diastolic Thickness 1.1 cm 0.6 - 1.0 / 0.6 - 0.9 cm LVPW Diastolic Thickness 1.1 cm 0.6 - 1.0 / 0.6 - 0.9 cm LV Relative Wall Thickness 0.4 LVOT Diameter 2.1 cm M-MODE Aortic Root Diameter MM 3.0 cm LA Systolic Diameter MM 4.0 cm LA Ao Ratio MM 1.3 AV Cusp Separation MM 1.3 cm DOPPLER AV Peak Velocity 144.0 cm/s AV Peak Gradient 8.3 mmHg LVOT Peak Velocity 118.0 cm/s LVOT Peak Gradient 5.6 mmHg AV Area Cont Eq pk 2.8 cm PV Peak Velocity 138.0 cm/s PV Peak Gradient 7.6 mmHg FINDINGS LEFT VENTRICLE The left ventricular systolic function is low normal with an estimated ejection fraction in the rang e of 50- 55%. Wall thickness is measured at the upper limits of normal. Normal left ventricular size. RIGHT VENTRICLE Normal right ventricular size and systolic function. LEFT ATRIUM The left atrial size is normal. RIGHT ATRIUM The right atrial size is normal. ATRIAL SEPTUM Normal atrial septal thickness without atrial level shunting by limited color doppler interrogation. AORTA The aortic root and proximal ascending aorta are normal in size on limited imaging. MITRAL VALVE Structurally normal mitral valve. No mitral valve stenosis or regurgitation. AORTIC VALVE Trileaflet aortic valve. No aortic valve stenosis or regurgitation. TRICUSPID VALVE Structurally normal tricuspid valve. No tricuspid valve stenosis or regurgitation. PULMONARY VALVE The pulmonary valve is not well visualized. VESSELS The inferior vena cava is normal in size. PERICARDIUM No pericardial effusion. Urbano Hester MD, FACC, [facility] [place] (Electronically Signed) Final Date:28 August 2017 14:47
[2017-08-28] MEDS: VANCOMYCIN INJ 2,000 MG in SODIUM CHLORID 0.9% 500 ML INJ 500 ML IV SCH (15:05)
[2017-08-28] MEDS: ABACAVIR SULFATE 300 MG TAB PO SCH (15:07)
--- NOTE | 2017-08-28 15:52 | EKG ---
Date Performed: 08/27/2017 Time Performed: 23:25:33 PTAGE: 67 years EKG: ATRIAL FLUTTER/TACHYCARDIA WITH RAPID VENTRICULAR RESPONSE INCOMPLETE RIGHT BUNDLE BRANCH B LOCK NONSPECIFIC ST ELEVATION ABNORMAL RHYTHM ECG Since the PREVIOUS TRACING , no significant change noted PREVIOUS TRACIN07/19/2017 18.48 DOCTOR: Claude Lima Interpretating Date/Time 08/28/2017 15:49:07
--- NOTE | 2017-08-28 15:52 | EKG ---
Date Performed: 08/28/2017 Time Performed: 03:39:44 PTAGE: 67 years EKG: ATRIAL FLUTTER/TACHYCARDIA WITH RAPID VENTRICULAR RESPONSE MARKED ST ELEVATION, CONSIDER IN FERIOR INJURY ACUTE CO Since the PREVIOUS TRACING , no significant change noted PREVIOUS TRACIN08/27/2017 23.25 DOCTOR: Claude Lima Interpretating Date/Time 08/28/2017 15:48:58
--- NOTE | 2017-08-28 17:56 | PD.ID.CON ---
History of Present Illness Service ID Consult Requested By Dr Colon Reason for Consult recurrent Rhabdo, HIV Primary Care Physician Sandi Pastrana MD Diagnoses: History of Present Illness 67 yo HIV/ last CD4 : 407, VL undetectable, on ABC/Epivir/Darunavi/cobis presented with BLE , muscle weerkmnness, SOB, non productive cough denies fever CK in 5K Recently had episode of rhabdo up to 15 K CKs He is on Pravastatin 1/4 bottles with GPC in clusters afebrile, nl WBC BNP < 50 Lactic acid normal Review of Systems Respiratory: COMPLAINS OF: Cough, Shortness of breath Cardiovascular: COMPLAINS OF: Lower Extremity Edema Musculoskeletal: COMPLAINS OF: Muscle aches Except as stated in HPI: all other systems reviewed are Neg Past Family Social History Allergies: Coded Allergies: emtricitabine (Unverified Adverse Reaction, Severe, AMS, N&V, H/A, LEG SWELLING, 08/27/17) tenofovir (Unverified Adverse Reaction, Severe, AMS, N&V, H/A, LEG SWELLING, 08/27/17) Past Medical History BPH acute urinary retention HIV Past Surgical History Left patellar surgery Active Ordered Medications Medications where reviewed in EMR Antibiotics Include: vanco zorakeshn Family History Cancer unspecified per patient Social History 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 Stop smoking a few years ago, stopped drinking about 20 years ago. NO IVDU Physical Exam Vital Signs Vital Signs Date Time Temp Pulse Resp B/P (MAP) Pulse Ox O2 Delivery O2 Flow Rate FiO2 08/28/17 16:00 99.4 114 16 94/56 (69) 96 08/28/17 15:39 93 21 08/28/17 12:00 98.9 116 17 96/57 (70) 96 08/28/17 08:46 98 21 08/28/17 08:00 98.5 110 19 104/71 (82) 95 08/28/17 05:53 111 08/28/17 04:41 97.1 111 20 110/70 (83) 96 08/28/17 04:21 08/28/17 03:20 98.7 98 16 107/61 (76) 98 Room Air 08/28/17 03:15 98 08/27/17 23:31 116 14 99/58 (72) 100 Room Air 08/27/17 22:48 115 14 94/55 (68) 99 Room Air 08/27/17 20:49 97 Room Air 08/27/17 20:49 18 97 Room Air 08/27/17 20:46 98.4 128 16 117/69 (85) 97 Physical Exam CONSTITUTIONAL/GENERAL: This is an adequately nourished patient, in no apparent distress. TUBES/LINES/DRAINS: SKIN: No jaundice, rashes, or lesions. Few shallow wounds BLE. Skin temperature appropriate. Not diaphoretic. HEAD: Atraumatic. Normocephalic. EYES: Pupils equal and round and reactive. Extraocular motions intact. No scleral icterus. No injection or drainage. Fundi not examined. ENT: Hearing grossly normal. Nose without bleeding or purulent drainage. Throat without visible erythema, exudates, masses, or lesions. poor dentition NECK: Trachea midline. Supple, nontender. No palpable thyroid enlargement or nodularity. CARDIOVASCULAR: Regular rate and rhythm without murmurs, gallops, or rubs. No JVD. Peripheral pulses symmetric. RESPIRATORY/CHEST: Symmetric, unlabored respirations. Clear to auscultation. Breath sounds equal bilaterally. No wheezes, rales, or rhonchi. GASTROINTESTINAL: Abdomen soft, non-tender, nondistended. No hepato-splenomegaly , or palpable masses. No guarding. Bowel sounds present. GENITOURINARY: Without palpable bladder distension. MUSCULOSKELETAL: Extremities without clubbing, cyanosis, 2+ soft pitting edema. No joint tenderness or effusion noted. No calf tenderness. No mottling or clubbing. LYMPHATICS: No palpable cervical or supraclavicular adenopathy. NEUROLOGICAL: Awake and alert. Motor and sensory grossly within normal limits. Follows commands. Clear speech. Moves all extremities. PSYCHIATRIC: No obvious anxiety/depression. no apparent hallucinations or other psychotic thought process. Laboratory Laboratory Tests Test 08/27/17 21:00 08/28/17 03:22 08/28/17 11:04 White Blood Count 5.2 Red Blood Count 2.97 Hemoglobin 10.0 Hematocrit 29.3 Mean Corpuscular Volume 98.5 Mean Corpuscular Hemoglobin 33.6 Mean Corpuscular Hemoglobin Concent 34.1 Red Cell Distribution Width 16.3 Platelet Count 254 Mean Platelet Volume 6.6 Neutrophils (%) (Auto) 68.5 Lymphocytes (%) (Auto) 20.9 Monocytes (%) (Auto) 10.1 Eosinophils (%) (Auto) 0.2 Basophils (%) (Auto) 0.3 Neutrophils # (Auto) 3.6 Lymphocytes # (Auto) 1.1 Monocytes # (Auto) 0.5 Eosinophils # (Auto) 0.0 Basophils # (Auto) 0.0 CBC Comment DIFF FINAL Differential Comment Prothrombin Time 10.5 Prothromb Time International Ratio 1.0 Activated Partial Thromboplast Time 25.0 Blood Urea Nitrogen 16 Creatinine 1.25 Random Glucose 83 Total Protein 6.7 Albumin 2.6 Calcium Level 8.1 Magnesium Level 1.9 Alkaline Phosphatase 104 Aspartate Amino Transf (AST/SGOT) 98 Alanine Aminotransferase (ALT/SGPT) 24 Total Bilirubin 0.5 Sodium Level 140 Potassium Level 3.6 Chloride Level 106 Carbon Dioxide Level 24.1 Anion Gap 10 Estimat Glomerular Filtration Rate 58 Lactic Acid Level 1.8 Total Creatine Kinase 5534 4667 3410 Creatine Kinase MB 32.1 26.1 14.9 Creatine Kinase MB % 0.6 0.6 0.4 Troponin I 0.02 0.02 LESS THAN 0.02 B-Type Natriuretic Peptide 48 Thyroid Stimulating Hormone 3rd Gen 1.410 Date/Time Source Procedure Growth Status 08/27/17 21:00 Blood Peripheral Aerobic Blood Culture - Preliminary NO GROWTH IN 1 DAY Resulted 08/27/17 21:00 Blood Peripheral Anaerobic Blood Culture - Preliminary NO GROWTH IN 1 DAY Resulted Result Diagram: 08/27/17209908/27/17 2100 Imaging Last Impressions Lower Extremity Ultrasound 08/27/17 2330 Signed Impressions: Service Date/Time: Monday, August 28, 2017 01:07 - CONCLUSION: Soft tissue swelling without deep venous thrombosis. Rene Noel MD Knee X-Ray [id number] Signed Impressions: Service Date/Time: Sunday, August 27, 2017 21:27 - CONCLUSION: 1. Previous patellar surgery as above. Trace joint fluid. No acute bony abnormality. No significant change since July 22. Clarence Gaston MD Head CT [id number] Signed Impressions: Service Date/Time: Sunday, August 27, 2017 22:04 - CONCLUSION: 1. No acute findings. Clarence Gaston MD Chest X-Ray [id number] Signed Impressions: Service Date/Time: Sunday, August 27, 2017 20:58 - CONCLUSION: 1. Ill-defined basilar airspace disease most characteristic of bronchopneumonia. Clarence Gaston MD Assessment and Plan Assessment and Plan HIV Rhabdo (probably 2/2 drug interaction of pravastain and darunavir - cat C: darunavir will increase pravastain levels) - recurrent episode PNA BLE edema Staph bactermia - unk significance cont zosyn, vanco cont azithromycin will avoid pravastatin spurtum clx will follow Lucita Hester MD Aug 28, 2017 17:56
[2017-08-28] MEDS: FUROSEMIDE 20 MG/2 ML VIAL IV PUSH SCH (18:15)
[2017-08-28] MEDS: PREZCOBIX PO SCH (18:15)
[2017-08-28] MEDS: DULoxetine HCl DR 30 MG CAP PO SCH (20:45)
[2017-08-28] MEDS: traZODone HCL 50 MG TAB PO SCH (22:28)
[2017-08-29] VITALS (8 sets, daily range): BP systolic 92–110; BP diastolic 50–69; PULSE 80–125; RESP 18–20; TEMP 97.2–99; O2SAT 92–96
[2017-08-29] MEDS: ACETAMINOPHEN/HYDROcodone 325 MG/10 MG TAB PO PRN ×3 (00:07→17:28)
[2017-08-29] MEDS: RESP: ALBUTEROL 2.5 MG/IPRATROPIUM 0.5 MG NEB (SCH) INH ×4 (02:53→20:19)
[2017-08-29] MEDS: HEPARIN SODIUM - SQ 10,000 UNITS/ML VIAL SQ SCH ×3 (04:51→21:48)
[2017-08-29] MEDS: PIPERACIL-TAZO 3.375 GM PREMIX 50 ML IV SCH ×3 (04:51→17:30)
[2017-08-29] MEDS: LISINOPRIL 10 MG TAB PO SCH (08:07)
[2017-08-29] MEDS: POTASSIUM CHLORIDE 10 MEQ CONTROLLED RELEASE TAB PO SCH (08:14)
[2017-08-29] MEDS: ABACAVIR SULFATE 300 MG TAB PO SCH (08:15)
[2017-08-29] MEDS: AZITHROMYCIN 250 MG TAB PO SCH (08:15)
[2017-08-29] MEDS: PREZCOBIX PO SCH (08:15)
[2017-08-29] MEDS: ALPRAZolam 1 MG TAB PO SCH ×4 (08:15→21:48)
[2017-08-29] MEDS: FUROSEMIDE 20 MG/2 ML VIAL IV PUSH SCH ×2 (08:15→17:29)
--- NOTE | 2017-08-29 08:15 | PD.CARD.PN ---
Subjective Subjective Remarks Feels better this morning. No chest pain or palpitation. Echo shows normal LV function. HR rapis this morning. BP110/70 Objective Medications Current Medications Medications (Trade) Dose Ordered Sig/Calvin Route Start Time Stop Time Status Last Admin Sodium Chloride 1,000 ml @ 125 mls/hr Q8H IV 08/28/17 02:00 08/28/17 22:28 (NS Flush) 2 ml UNSCH PRN IV FLUSH 08/28/17 01:45 (NS Flush) 2 ml BID IV FLUSH 08/28/17 09:00 (Tylenol) 650 mg Q4H PRN PO 08/28/17 01:45 (Compazine Supp) 25 mg Q12H PRN RECTAL 08/28/17 01:45 (Heparin Inj) 5,000 units Q8H SQ 08/28/17 06:00 08/29/17 04:51 (Narcan Inj) 0.4 mg UNSCH PRN IV PUSH 08/28/17 01:45 (Duoneb Neb) 1 ampule Q6HR NEB INH 08/28/17 04:00 08/29/17 02:53 (Duoneb Neb) 1 ampule Q4HR NEB PRN INH 08/28/17 01:45 Piperacillin Sod/ Tazobactam Sod 50 ml @ 100 mls/hr Q6H IV 08/28/17 12:00 08/29/17 04:51 Pharmacy Profile Note 0 ml @ 0 mls/hr UNSCH OTHER 08/28/17 10:15 (Xanax) 1 mg QID PO 08/28/17 13:00 08/28/17 22:29 ([place] 10-325 Mg) 1 tab Q8HR PRN PO 08/28/17 10:30 08/29/17 00:07 (Prinivil) 10 mg DAILY PO 08/28/17 12:30 (Cymbalta Dr) 30 mg HS PO 08/28/17 21:00 08/28/17 20:45 (Desyrel) 150 mg HS PO 08/28/17 21:00 08/28/17 22:28 (Lasix Inj) 20 mg BID@09,18 IV PUSH 08/28/17 18:00 08/28/17 18:15 (KCl) 30 meq DAILY PO 3/28/18 09:00 (Epivir) 300 mg DAILY PO 08/28/17 13:00 08/28/17 15:11 (Ziagen) 600 mg DAILY PO 08/28/17 13:00 08/28/17 15:07 Vancomycin HCl 2000 mg/Sodium Chloride 520 ml @ 250 mls/hr Q18H IV 08/28/17 14:00 08/28/17 15:05 Miscellaneous Information SPECIFIC LAB TO BE DRAWN:VANCOMYCIN TROUGH DATE TO... ONCE ONCE .XX 08/31/17 13:45 08/31/17 13:46 Patient Own Medication PT OWN: PREZCOBIX (DARUNA... DAILY PO 08/28/17 17:00 08/28/17 18:15 (Zithromax) 500 mg DAILY PO 08/29/17 09:00 (Lopressor) 50 mg Q12HR PO 08/29/17 09:00 Vital Signs / I&O Vital Signs Date Time Temp Pulse Resp B/P (MAP) Pulse Ox O2 Delivery O2 Flow Rate FiO2 08/29/17 04:00 98.2 112 18 110/59 (76) 94 08/29/17 04:00 121 08/29/17 00:00 113 08/29/17 00:00 98.1 80 18 105/69 (81) 92 08/28/17 20:00 116 08/28/17 20:00 98.2 87 18 95/63 (74) 94 08/28/17 16:00 99.4 114 16 94/56 (69) 96 08/28/17 15:39 93 21 08/28/17 12:00 98.9 116 17 96/57 (70) 96 08/28/17 08:46 98 21 I/O 08/28/17 08/28/17 08/28/17 08/29/17 08/29/17 08/29/17 07:00 15:00 23:00 07:00 15:00 23:00 Intake Total 1350 ml 4806 ml 200 ml Output Total 300 ml 1325 ml Balance 1050 ml 3481 ml 200 ml Intake Oral 1560 ml 100 ml IV Total 1350 ml 3246 ml 100 ml Output Urine Total 300 ml 1325 ml # Voids 2 4 # Bowel Movements 3 0 Laboratory Laboratory Tests Test 08/28/17 11:04 Total Creatine Kinase 3410 U/L Creatine Kinase MB 14.9 NG/ML Creatine Kinase MB % 0.4 % Troponin I LESS THAN 0.02 NG/ML Thyroid Stimulating Hormone 3rd Gen 1.410 uIU/ML Assessment and Plan Assessment and Plan Willtry increasing dose of metoprolol. CK decreasing. May wish to consider holding Cymbalta in view of rhabdomyolysis Arron Lindo MD Aug 29, 2017 08:15
[2017-08-29] MEDS: SODIUM CHLORIDE 0.9% FLUSH 10 ML FLUSH IV FLUSH SCH ×2 (08:16→21:00)
[2017-08-29] MEDS: VANCOMYCIN INJ 2,000 MG in SODIUM CHLORID 0.9% 500 ML INJ 500 ML IV SCH (08:16)
[2017-08-29] MEDS: METOPROLOL TARTRATE 50 MG TAB PO SCH ×2 (08:19→21:48)
[2017-08-29] MEDS: SODIUM CHLOR 0.9% 1000 ML INJ 1,000 ML IV SCH ×2 (08:25→17:30)
[2017-08-29] MEDS: DIGOXIN 0.25 MG TAB PO SCH (09:33)
[2017-08-29 11:12] LABS: AUTOMATED NEUTROPHIL # 3.6 TH/MM3 (1.8-7.7); BASOPHIL % 0.4 % (0.0-2.0); EOSINOPHIL % 0.5 % (0.0-4.0); HEMATOCRIT 30.8 % (39.0-51.0); HEMOGLOBIN 10.3 GM/DL (13.0-17.0); LYMPH % 23.1 % (9.0-44.0); LYMPHOCYTE # 1.2 TH/MM3 (1.0-4.8); MEAN CELL VOLUME 99.9 FL (80.0-100.0); MEAN CORPUSCULAR HEMOGLOBIN 33.3 PG (27.0-34.0); MEAN CORPUSCULAR HGB CONC 33.3 % (32.0-36.0); MONO % 9.6 % (0.0-8.0); MONOCYTE # 0.5 TH/MM3 (0-0.9); NEUT % 66.4 % (16.0-70.0); PLATELET COUNT 246 TH/MM3 (150-450); RED BLOOD COUNT 3.09 MIL/MM3 (4.50-5.90); WHITE BLOOD COUNT 5.3 TH/MM3 (4.0-11.0)
[2017-08-29 11:57] LABS: ALBUMIN 2.8 GM/DL (3.4-5.0); AST (GOT) 74 U/L (15-37); BLOOD UREA NITROGEN 9 MG/DL (7-18); CALCIUM 7.7 MG/DL (8.5-10.1); CHLORIDE 108 MEQ/L (98-107); CREATININE 1.32 MG/DL (0.60-1.30); GLOMERULAR FILTRATION RATE 54 ML/MIN (>89); GLUCOSE,RANDOM 82 MG/DL (74-106); SODIUM (NA) 140 MEQ/L (136-145)
[2017-08-29 12:10] LABS: ALKALINE PHOSPHATASE 103 U/L (45-117); ALT (GPT) 23 U/L (12-78); TOTAL BILIRUBIN ADULT 0.5 MG/DL (0.2-1.0); TOTAL PROTEIN 7.5 GM/DL (6.4-8.2)
--- NOTE | 2017-08-29 13:12 | HHI.PR ---
Subjective Remarks Patient says that his lower extremity swelling in both legs is much improved as well as his weakness since yesterday. Says he feels much better overall. Objective Vital Signs Date Time Temp Pulse Resp B/P (MAP) Pulse Ox O2 Delivery O2 Flow Rate FiO2 08/29/17 12:00 98.7 107 20 92/66 (75) 96 08/29/17 10:29 96 21 08/29/17 08:00 97.2 125 20 105/62 (76) 93 08/29/17 04:00 98.2 112 18 110/59 (76) 94 08/29/17 04:00 121 08/29/17 00:00 113 08/29/17 00:00 98.1 80 18 105/69 (81) 92 08/28/17 20:00 116 08/28/17 20:00 98.2 87 18 95/63 (74) 94 08/28/17 16:00 99.4 114 16 94/56 (69) 96 08/28/17 15:39 93 21 I/O 08/28/17 08/28/17 08/28/17 08/29/17 08/29/17 08/29/17 06:59 14:59 22:59 06:59 14:59 22:59 Intake Total 1350 ml 4806 ml 200 ml 570 ml Output Total 300 ml 1325 ml Balance 1050 ml 3481 ml 200 ml 570 ml Intake Oral 1560 ml 100 ml IV Total 1350 ml 3246 ml 100 ml 570 ml Output Urine Total 300 ml 1325 ml # Voids 2 4 # Bowel Movements 3 0 Result Diagram: 08/29/17 1041 08/29/17 1040 Objective Remarks Tachycardic, irregular rhythm Unlabored breathing, no acute distress, no cyanosis, faint scattered crackles throughout both lung todd, still having mild to moderate bilateral lower extremity edema with some erythema over the left lower leg with minimal improvement since yesterday A/P Assessment and Plan Rhabdomyolysis -CK levels have been improving with IV fluids -differential includes HIV followed by polypharmacy - D/w with pharmacy, namely statin, Seroquel, Remeron -I will hold these medications for now. -Infectious disease following to help minimize antibiotics that would contribute to this Weakness in legs - likely 2/2 rhabdo; PT, fall precautions, tx as above LE edema -Echo shows preserved ejection fraction, minimal improvement since yesterday Afib - lopressor per cards, dose increased for better rate control Possible LLL cellulitis - continue zosyn and vancomycin Possible PNA - clinical PNA. I independently reviewed the chest x-ray and I am not impressed for any particular infiltrates however clinically he does have the symptoms. - cover for HCAP with zosyn and vanc as above HIV - ID following, managing chronic HAART meds in light of rhabdo Bipolar disorder/depression -Resume home duloxetine and trazodone, holding Remeron and Seroquel in light of rhabdomyolysis Kiet Xie MD Aug 29, 2017 13:12
--- NOTE | 2017-08-29 18:48 | HHI.IDPN ---
Subjective Subjective Remarks aqfebrile Growing MRSA in 2/2 blood clx c/o pain R knee, BLE, no back pain Antibiotics vanco zosyn Allergies: Coded Allergies: emtricitabine (Unverified Adverse Reaction, Severe, AMS, N&V, H/A, LEG SWELLING, 08/27/17) tenofovir (Unverified Adverse Reaction, Severe, AMS, N&V, H/A, LEG SWELLING, 08/27/17) Objective . Vital Signs Date Time Temp Pulse Resp B/P (MAP) Pulse Ox O2 Delivery O2 Flow Rate FiO2 08/29/17 16:00 99.0 109 20 106/50 (68) 93 08/29/17 12:00 98.7 107 20 92/66 (75) 96 08/29/17 10:29 96 21 08/29/17 08:00 97.2 125 20 105/62 (76) 93 08/29/17 04:00 98.2 112 18 110/59 (76) 94 08/29/17 04:00 121 08/29/17 00:00 113 08/29/17 00:00 98.1 80 18 105/69 (81) 92 08/28/17 20:00 116 08/28/17 20:00 98.2 87 18 95/63 (74) 94 08/29/17 08/29/17 08/30/17 15:00 23:00 07:00 Intake Total 570 ml 940 ml Balance 570 ml 940 ml Intake Oral 940 ml IV Total 570 ml # Voids 5 # Bowel Movements 4 . Laboratory Tests Test 08/27/17 21:00 08/29/17 10:41 White Blood Count 5.2 TH/MM3 5.3 TH/MM3 Red Blood Count 2.97 MIL/MM3 3.09 MIL/MM3 Hemoglobin 10.0 GM/DL 10.3 GM/DL Hematocrit 29.3 % 30.8 % Mean Corpuscular Volume 98.5 FL 99.9 FL Mean Corpuscular Hemoglobin 33.6 PG 33.3 PG Mean Corpuscular Hemoglobin Concent 34.1 % 33.3 % Red Cell Distribution Width 16.3 % 17.0 % Platelet Count 254 TH/MM3 246 TH/MM3 Mean Platelet Volume 6.6 FL 7.0 FL Neutrophils (%) (Auto) 68.5 % 66.4 % Lymphocytes (%) (Auto) 20.9 % 23.1 % Monocytes (%) (Auto) 10.1 % 9.6 % Eosinophils (%) (Auto) 0.2 % 0.5 % Basophils (%) (Auto) 0.3 % 0.4 % Neutrophils # (Auto) 3.6 TH/MM3 3.6 TH/MM3 Lymphocytes # (Auto) 1.1 TH/MM3 1.2 TH/MM3 Monocytes # (Auto) 0.5 TH/MM3 0.5 TH/MM3 Eosinophils # (Auto) 0.0 TH/MM3 0.0 TH/MM3 Basophils # (Auto) 0.0 TH/MM3 0.0 TH/MM3 CBC Comment DIFF FINAL DIFF FINAL Differential Comment Laboratory Tests Test 08/27/17 21:00 08/28/17 03:22 08/28/17 11:04 08/29/17 10:40 Blood Urea Nitrogen 16 MG/DL 9 MG/DL Creatinine 1.25 MG/DL 1.32 MG/DL Random Glucose 83 MG/DL 82 MG/DL Total Protein 6.7 GM/DL 7.5 GM/DL Albumin 2.6 GM/DL 2.8 GM/DL Calcium Level 8.1 MG/DL 7.7 MG/DL Magnesium Level 1.9 MG/DL Alkaline Phosphatase 104 U/L 103 U/L Aspartate Amino Transf (AST/SGOT) 98 U/L 74 U/L Alanine Aminotransferase (ALT/SGPT) 24 U/L 23 U/L Total Bilirubin 0.5 MG/DL 0.5 MG/DL Sodium Level 140 MEQ/L 140 MEQ/L Potassium Level 3.6 MEQ/L 3.5 MEQ/L Chloride Level 106 MEQ/L 108 MEQ/L Carbon Dioxide Level 24.1 MEQ/L 23.0 MEQ/L Anion Gap 10 MEQ/L 9 MEQ/L Estimat Glomerular Filtration Rate 58 ML/MIN 54 ML/MIN Lactic Acid Level 1.8 mmol/L Total Creatine Kinase 5534 U/L 4667 U/L 3410 U/L 2701 U/L Creatine Kinase MB 32.1 NG/ML 26.1 NG/ML 14.9 NG/ML 5.2 NG/ML Creatine Kinase MB % 0.6 % 0.6 % 0.4 % 0.2 % Troponin I 0.02 NG/ML 0.02 NG/ML LESS THAN 0.02 NG/ML B-Type Natriuretic Peptide 48 PG/ML Thyroid Stimulating Hormone 3rd Gen 1.410 uIU/ML Microbiology Date/Time Source Procedure Growth Status 08/27/17 21:00 Blood Peripheral Aerobic Blood Culture - Preliminary Gram Positive Cocci Resulted 08/27/17 21:00 Blood Peripheral Anaerobic Blood Culture - Preliminary NO GROWTH IN 2 DAYS Resulted 08/27/17 20:45 Blood Peripheral Aerobic Blood Culture - Preliminary NO GROWTH IN 2 DAYS Resulted 08/27/17 20:45 Anaerobic Blood Culture - Preliminary S. Aureus Mrsa Resulted Imaging Last Impressions Lower Extremity Ultrasound 08/27/170 Signed Impressions: Service Date/Time: Monday, August 28, 2017 01:07 - CONCLUSION: Soft tissue swelling without deep venous thrombosis. Rene Noel MD Knee X-Ray [id number]/27/172107 Signed Impressions: Service Date/Time: Sunday, August 27, 2017 21:27 - CONCLUSION: 1. Previous patellar surgery as above. Trace joint fluid. No acute bony abnormality. No significant change since July 22. Clarence Gaston MD Head CT [id number]/27/172107 Signed Impressions: Service Date/Time: Sunday, August 27, 2017 22:04 - CONCLUSION: 1. No acute findings. Clarence Gastno MD Chest X-Ray [id number]/27/[id number] Signed Impressions: Service Date/Time: Sunday, August 27, 2017 20:58 - CONCLUSION: 1. Ill-defined basilar airspace disease most characteristic of bronchopneumonia. Clarence Gaston MD Physical Exam CONSTITUTIONAL/GENERAL: This is an adequately nourished patient, in no apparent distress. TUBES/LINES/DRAINS: SKIN: No jaundice, rashes, or lesions. Few shallow wounds BLE. Skin temperature appropriate. Not diaphoretic. HEAD: Atraumatic. Normocephalic. EYES: Pupils equal and round and reactive. Extraocular motions intact. No scleral icterus. No injection or drainage. Fundi not examined. ENT: Hearing grossly normal. Nose without bleeding or purulent drainage. Throat without visible erythema, exudates, masses, or lesions. poor dentition NECK: Trachea midline. Supple, nontender. No palpable thyroid enlargement or nodularity. CARDIOVASCULAR: Regular rate and rhythm without murmurs, gallops, or rubs. No JVD. Peripheral pulses symmetric. RESPIRATORY/CHEST: Symmetric, unlabored respirations. Clear to auscultation. Breath sounds equal bilaterally. No wheezes, rales, or rhonchi. GASTROINTESTINAL: Abdomen soft, non-tender, nondistended. No hepato-splenomegaly , or palpable masses. No guarding. Bowel sounds present. GENITOURINARY: Without palpable bladder distension. MUSCULOSKELETAL: Extremities without clubbing, cyanosis, 2+ soft pitting edema. No joint tenderness or effusion noted. No calf tenderness. No mottling or clubbing. R knee with erythe,ma, some edema and small effusion LYMPHATICS: No palpable cervical or supraclavicular adenopathy. NEUROLOGICAL: Awake and alert. Motor and sensory grossly within normal limits. Follows commands. Clear speech. Moves all extremities. PSYCHIATRIC: No obvious anxiety/depression. no apparent hallucinations or other psychotic thought process. HIV Rhabdo (probably 2/2 drug interaction of pravastain and darunavir - cat C: darunavir will increase pravastain levels) - recurrent episode Assessment & Plan Remarks PNA BLE edema MRSA bactermia - unknown source ? PNA, endocarditis ? Septic knee dc zosyn, cont vanco cont azithromycin will avoid pravastatin spurtum clx CT L knee 2 D echo Lucita Hester MD Aug 29, 2017 18:48
[2017-08-29] MEDS: traZODone HCL 50 MG TAB PO SCH (21:47)
[2017-08-29] MEDS: DULoxetine HCl DR 30 MG CAP PO SCH (21:48)
--- NOTE | 2017-08-29 22:02 | RADRPT ---
EXAM DATE/TIME: 08/29/2017 21:05 [place] COMPARISON: No previous studies available for comparison. INDICATIONS : Left knee pain. RADIATION DOSE: 32.81 CTDIvol (mGy) MEDICAL HISTORY : Cardiovascular disease. Hypertension. Carcinoma, not otherwise specified.Hep., HIV SURGICAL HISTORY : None. ENCOUNTER: Initial ACUITY: 1 day PAIN SCALE: 5/10 LOCATION: Left knee TECHNIQUE: Volumetric scanning of the knee was performed. Using automated exposure control and adjustment of th e mA and/or kV according to patient size, radiation dose was kept as low as reasonably achievable to obtain optimal diagnostic quality images. DICOM format image data is available electronically for re view and comparison. FINDINGS: BONES: No evidence of fracture. Alignment is within normal limits. There is hypertrophic change of the mayes lla. Cerclage wires are seen to extend to the patella and the anterior proximal tibia. JOINTS: There is a mild joint effusion. SOFT TISSUES: There is fatty atrophy of the medial gastrocnemius muscle. Muscles, tendons and neurovascular structu res are grossly unremarkable. No evidence of mass, organized fluid collection, or foreign body. There is edema seen throughout the subcutaneous tissues. CONCLUSION: 1. Chronic hypertrophic change and postoperative change the patella and patellar tendon region. The c erclage wire in place. 2. Edema seen throughout the subcutaneous soft tissues. 3. Fatty atrophy of the medial gastrocnemius muscle. Tomasz Alexander MD on August 29, 2017 at 21:56 Board Certified Radiologist. This report was verified electronically.
[2017-08-30] VITALS (12 sets, daily range): BP systolic 85–112; BP diastolic 54–69; PULSE 70–130; RESP 16–28; TEMP 97.4–98.9; O2SAT 89–95
[2017-08-30] MEDS: PIPERACIL-TAZO 3.375 GM PREMIX 50 ML IV SCH ×5 (00:30→23:46)
[2017-08-30] MEDS: SODIUM CHLOR 0.9% 1000 ML INJ 1,000 ML IV SCH ×2 (01:32→11:07)
[2017-08-30] MEDS: VANCOMYCIN INJ 2,000 MG in SODIUM CHLORID 0.9% 500 ML INJ 500 ML IV SCH ×2 (01:32→20:39)
[2017-08-30] MEDS: RESP: ALBUTEROL 2.5 MG/IPRATROPIUM 0.5 MG NEB (SCH) INH ×4 (04:00→20:24)
[2017-08-30] MEDS: ACETAMINOPHEN/HYDROcodone 325 MG/10 MG TAB PO PRN ×3 (05:05→23:00)
[2017-08-30] MEDS: HEPARIN SODIUM - SQ 10,000 UNITS/ML VIAL SQ SCH ×3 (05:06→20:40)
[2017-08-30] MEDS ORDERED: AMIODARONE INJ 150 MG in DEXTROSE 5% IN WATER 100ML INJ 100 ML IV ONE ×2 (07:25)
--- NOTE | 2017-08-30 07:34 | PD.CARD.PN ---
Subjective Subjective Remarks Feels better this morning. No chest pain or palpitation. Echo shows normal LV function. HR better controlled but still in atrial flutter this morning. BP110/ 70 Objective Medications Current Medications Medications (Trade) Dose Ordered Sig/Calvin Route Start Time Stop Time Status Last Admin Sodium Chloride 1,000 ml @ 125 mls/hr Q8H IV 08/28/17 02:00 08/30/17 01:32 (NS Flush) 2 ml UNSCH PRN IV FLUSH 08/28/17 01:45 (NS Flush) 2 ml BID IV FLUSH 08/28/17 09:00 (Tylenol) 650 mg Q4H PRN PO 08/28/17 01:45 (Compazine Supp) 25 mg Q12H PRN RECTAL 08/28/17 01:45 (Heparin Inj) 5,000 units Q8H SQ 08/28/17 06:00 08/30/17 05:06 (Narcan Inj) 0.4 mg UNSCH PRN IV PUSH 08/28/17 01:45 (Duoneb Neb) 1 ampule Q6HR NEB INH 08/28/17 04:00 08/29/17 20:19 (Duoneb Neb) 1 ampule Q4HR NEB PRN INH 08/28/17 01:45 Piperacillin Sod/ Tazobactam Sod 50 ml @ 100 mls/hr Q6H IV 08/28/17 12:00 08/30/17 05:07 Pharmacy Profile Note 0 ml @ 0 mls/hr UNSCH OTHER 08/28/17 10:15 (Xanax) 1 mg QID PO 08/28/17 13:00 08/29/17 21:48 ([place] 10-325 Mg) 1 tab Q8HR PRN PO 08/28/17 10:30 08/30/17 05:05 (Prinivil) 10 mg DAILY PO 08/28/17 12:30 (Cymbalta Dr) 30 mg HS PO 08/28/17 21:00 08/29/17 21:48 (Desyrel) 150 mg HS PO 08/28/17 21:00 08/29/17 21:47 (Lasix Inj) 20 mg BID@,18 IV PUSH 08/28/17 18:00 08/29/17 17:29 (KCl) 30 meq DAILY PO 08/29/17 09:00 08/29/17 08:14 (Epivir) 300 mg DAILY PO 08/28/17 13:00 08/29/17 08:14 (Ziagen) 600 mg DAILY PO 08/28/17 13:00 08/29/17 08:15 Vancomycin HCl 2000 mg/Sodium Chloride 520 ml @ 250 mls/hr Q18H IV 08/28/17 14:00 08/30/17 01:32 Miscellaneous Information SPECIFIC LAB TO BE DRAWN:VANCOMYCIN TROUGH DATE TO... ONCE ONCE .XX 08/31/17 13:45 08/31/17 13:46 Patient Own Medication PT OWN: PREZCOBIX (DARUNA... DAILY PO 08/28/17 17:00 08/29/17 08:15 (Zithromax) 500 mg DAILY PO 08/29/17 09:00 08/29/17 08:15 (Lopressor) 50 mg Q12HR PO 08/29/17 09:00 08/29/17 21:48 (Lanoxin) 0.25 mg DAILY PO 08/29/17 09:00 08/29/17 09:33 Vital Signs / I&O Vital Signs Date Time Temp Pulse Resp B/P (MAP) Pulse Ox O2 Delivery O2 Flow Rate FiO2 08/30/17 00:28 98.9 110 20 100/60 (73) 92 08/29/17 21:49 120 18 110/63 (79) 94 08/29/17 20:00 98.1 123 18 99/60 (73) 93 08/29/17 16:00 99.0 109 20 106/50 (68) 93 08/29/17 12:00 98.7 107 20 92/66 (75) 96 08/29/17 10:29 96 21 08/29/17 08:00 97.2 125 20 105/62 (76) 93 I/O 08/29/17 08/29/17 08/29/17 08/30/17 08/30/17 08/30/17 07:00 15:00 23:00 07:00 15:00 23:00 Intake Total 200 ml 570 ml 940 ml 50 ml Output Total 600 ml Balance 200 ml 570 ml 940 ml -550 ml Intake Oral 100 ml 940 ml 0 ml IV Total 100 ml 570 ml 50 ml Output Urine Total 600 ml # Voids 4 5 3 # Bowel Movements 0 4 1 Laboratory Laboratory Tests Test 08/29/17 10:40 08/29/17 10:41 Blood Urea Nitrogen 9 MG/DL Creatinine 1.32 MG/DL Random Glucose 82 MG/DL Total Protein 7.5 GM/DL Albumin 2.8 GM/DL Calcium Level 7.7 MG/DL Alkaline Phosphatase 103 U/L Aspartate Amino Transf (AST/SGOT) 74 U/L Alanine Aminotransferase (ALT/SGPT) 23 U/L Total Bilirubin 0.5 MG/DL Sodium Level 140 MEQ/L Potassium Level 3.5 MEQ/L Chloride Level 108 MEQ/L Carbon Dioxide Level 23.0 MEQ/L Anion Gap 9 MEQ/L Estimat Glomerular Filtration Rate 54 ML/MIN Total Creatine Kinase 2701 U/L Creatine Kinase MB 5.2 NG/ML Creatine Kinase MB % 0.2 % White Blood Count 5.3 TH/MM3 Red Blood Count 3.09 MIL/MM3 Hemoglobin 10.3 GM/DL Hematocrit 30.8 % Mean Corpuscular Volume 99.9 FL Mean Corpuscular Hemoglobin 33.3 PG Mean Corpuscular Hemoglobin Concent 33.3 % Red Cell Distribution Width 17.0 % Platelet Count 246 TH/MM3 Mean Platelet Volume 7.0 FL Neutrophils (%) (Auto) 66.4 % Lymphocytes (%) (Auto) 23.1 % Monocytes (%) (Auto) 9.6 % Eosinophils (%) (Auto) 0.5 % Basophils (%) (Auto) 0.4 % Neutrophils # (Auto) 3.6 TH/MM3 Lymphocytes # (Auto) 1.2 TH/MM3 Monocytes # (Auto) 0.5 TH/MM3 Eosinophils # (Auto) 0.0 TH/MM3 Basophils # (Auto) 0.0 TH/MM3 CBC Comment DIFF FINAL Differential Comment Assessment and Plan Assessment and Plan Have added eliquis 5 mg bid. Amiodarone IV to attempt medical cardioversion.. May wish to consider holding Cymbalta in view of rhabdomyolysis Arron Lindo MD Aug 30, 2017 07:34
[2017-08-30] MEDS ORDERED: AMIODARONE INJ 450 MG in DEXTROSE 5% IN WATE(EXCEL) INJ 241 ML IV PRN ×2 (07:35)
[2017-08-30] MEDS: DIGOXIN 0.25 MG TAB PO SCH (08:44)
[2017-08-30] MEDS: FUROSEMIDE 20 MG/2 ML VIAL IV PUSH SCH (08:45)
[2017-08-30] MEDS: APIXABAN 5 MG TABLET PO SCH ×2 (08:46→20:39)
[2017-08-30] MEDS: ALPRAZolam 1 MG TAB PO SCH ×4 (08:46→20:39)
[2017-08-30] MEDS: POTASSIUM CHLORIDE 10 MEQ CONTROLLED RELEASE TAB PO SCH (08:46)
[2017-08-30] MEDS: ABACAVIR SULFATE 300 MG TAB PO SCH (08:46)
[2017-08-30] MEDS: AZITHROMYCIN 250 MG TAB PO SCH (08:46)
[2017-08-30] MEDS: METOPROLOL TARTRATE 50 MG TAB PO SCH ×2 (08:47→20:40)
[2017-08-30] MEDS: PREZCOBIX PO SCH (08:47)
[2017-08-30] MEDS: LISINOPRIL 10 MG TAB PO SCH (08:47)
[2017-08-30] MEDS: SODIUM CHLORIDE 0.9% FLUSH 10 ML FLUSH IV FLUSH SCH ×2 (08:48→20:39)
[2017-08-30] MEDS ORDERED: AMIODARONE INJ 450 MG in SODIUM CHLOR 0.9% (EXCEL) INJ 250 ML IV PRN (10:00)
[2017-08-30] MEDS: AMIODARONE INJ 450 MG in SODIUM CHLOR 0.9% (EXCEL) INJ 241 ML IV PRN ×2 (11:09→21:20)
--- NOTE | 2017-08-30 13:34 | HHI.PR ---
Subjective Remarks Patient reports feeling a little lightheaded. He was getting tachycardic up to the 140s. He is transferred to the [facility] for closer monitoring on the amiodarone drip that he was started on by cardiology. Patient feels like his left leg is much stronger Objective Vital Signs Date Time Temp Pulse Resp B/P (MAP) Pulse Ox O2 Delivery O2 Flow Rate FiO2 08/30/17 13:18 15 08/30/17 12:00 98.5 96 21 89/61 (70) 89 08/30/17 12:00 96 08/30/17 11:09 102 112/64 08/30/17 11:07 103 112/64 08/30/17 10:00 130 08/30/17 10:00 98.5 130 16 112/64 (80) 95 08/30/17 08:00 97.4 118 19 108/69 (82) 91 08/30/17 00:28 98.9 110 20 100/60 (73) 92 08/29/17 21:49 120 18 110/63 (79) 94 08/29/17 20:00 98.1 123 18 99/60 (73) 93 08/29/17 16:00 99.0 109 20 106/50 (68) 93 I/O 08/29/17 08/29/17 08/29/17 08/30/17 08/30/17 08/30/17 07:00 15:00 23:00 07:00 15:00 23:00 Intake Total 200 ml 570 ml 940 ml 50 ml Output Total 600 ml Balance 200 ml 570 ml 940 ml -550 ml Intake Oral 100 ml 940 ml 0 ml IV Total 100 ml 570 ml 50 ml Output Urine Total 600 ml # Voids 4 5 3 # Bowel Movements 0 4 1 Result Diagram: 08/29/17 1041 08/29/17 1040 Objective Remarks Tachycardic, irregular rhythm Unlabored breathing, no acute distress, no cyanosis, faint scattered crackles throughout both lung todd, moderate bilateral lower extremity edema with persistent erythema over the left lower leg with some scattered open wounds A/P Assessment and Plan Rhabdomyolysis -Improving, will reduce IV fluids in light of bilateral lower extremity edema -differential includes HIV followed by polypharmacy - D/w with pharmacy, namely statin, Seroquel, Remeron -I will hold these medications for now. -Infectious disease following to help minimize antibiotics that would contribute to this Weakness in legs - likely 2/2 rhabdo; PT -Much improved since admission LE edema -Echo shows preserved ejection fraction, minimal improvement since yesterday -We will increase Lasix from 20-40 mg twice daily IV and reduce IV fluids from 125-50 Afib - lopressor per cards; started on amiodarone and eliquis per cards Possible LLL cellulitis - continue zosyn and vancomycin Possible PNA - clinical PNA. I independently reviewed the chest x-ray and I am not impressed for any particular infiltrates however clinically he does have the symptoms. - cover for HCAP with zosyn and vanc as above HIV - ID following, managing chronic HAART meds in light of rhabdo Bipolar disorder/depression - home duloxetine and trazodone, holding Remeron and Seroquel in light of rhabdomyolysis Kiet Xie MD Aug 30, 2017 13:34
--- NOTE | 2017-08-30 14:50 | HHI.IDPN ---
Subjective Subjective Remarks aqfebrile Growing MRSA in 2/2 blood clx pt was transferred to ICU 2/2 IV amiodarone for RVR Afib now on oral amio, rate controlled Antibiotics vanco zosyn Allergies: Coded Allergies: emtricitabine (Unverified Adverse Reaction, Severe, AMS, N&V, H/A, LEG SWELLING, 08/27/17) tenofovir (Unverified Adverse Reaction, Severe, AMS, N&V, H/A, LEG SWELLING, 08/27/17) Objective . Vital Signs Date Time Temp Pulse Resp B/P (MAP) Pulse Ox O2 Delivery O2 Flow Rate FiO2 08/30/17 14:00 96 08/30/17 13:18 15 08/30/17 12:00 98.5 96 21 89/61 (70) 89 08/30/17 12:00 96 08/30/17 11:09 102 112/64 08/30/17 11:07 103 112/64 08/30/17 10:00 130 08/30/17 10:00 98.5 130 16 112/64 (80) 95 08/30/17 08:00 97.4 118 19 108/69 (82) 91 08/30/17 00:28 98.9 110 20 100/60 (73) 92 08/29/17 21:49 120 18 110/63 (79) 94 08/29/17 20:00 98.1 123 18 99/60 (73) 93 08/29/17 16:00 99.0 109 20 106/50 (68) 93 . Laboratory Tests Test 08/29/17 10:41 White Blood Count 5.3 TH/MM3 Red Blood Count 3.09 MIL/MM3 Hemoglobin 10.3 GM/DL Hematocrit 30.8 % Mean Corpuscular Volume 99.9 FL Mean Corpuscular Hemoglobin 33.3 PG Mean Corpuscular Hemoglobin Concent 33.3 % Red Cell Distribution Width 17.0 % Platelet Count 246 TH/MM3 Mean Platelet Volume 7.0 FL Neutrophils (%) (Auto) 66.4 % Lymphocytes (%) (Auto) 23.1 % Monocytes (%) (Auto) 9.6 % Eosinophils (%) (Auto) 0.5 % Basophils (%) (Auto) 0.4 % Neutrophils # (Auto) 3.6 TH/MM3 Lymphocytes # (Auto) 1.2 TH/MM3 Monocytes # (Auto) 0.5 TH/MM3 Eosinophils # (Auto) 0.0 TH/MM3 Basophils # (Auto) 0.0 TH/MM3 CBC Comment DIFF FINAL Differential Comment Laboratory Tests Test 08/29/17 10:40 Blood Urea Nitrogen 9 MG/DL Creatinine 1.32 MG/DL Random Glucose 82 MG/DL Total Protein 7.5 GM/DL Albumin 2.8 GM/DL Calcium Level 7.7 MG/DL Alkaline Phosphatase 103 U/L Aspartate Amino Transf (AST/SGOT) 74 U/L Alanine Aminotransferase (ALT/SGPT) 23 U/L Total Bilirubin 0.5 MG/DL Sodium Level 140 MEQ/L Potassium Level 3.5 MEQ/L Chloride Level 108 MEQ/L Carbon Dioxide Level 23.0 MEQ/L Anion Gap 9 MEQ/L Estimat Glomerular Filtration Rate 54 ML/MIN Total Creatine Kinase 2701 U/L Creatine Kinase MB 5.2 NG/ML Creatine Kinase MB % 0.2 % Microbiology Date/Time Source Procedure Growth Status 08/27/17 21:00 Blood Peripheral Aerobic Blood Culture - Final S. Aureus Mrsa Resulted 08/27/17 21:00 Blood Peripheral Anaerobic Blood Culture - Preliminary NO GROWTH IN 3 DAYS Resulted 08/27/17 20:45 Blood Peripheral Aerobic Blood Culture - Preliminary NO GROWTH IN 3 DAYS Resulted 08/27/17 20:45 Anaerobic Blood Culture - Final S. Aureus Mrsa Resulted Imaging Last Impressions Lower Extremity CT 08/29/17 0000 Signed Impressions: Service Date/Time: Tuesday, August 29, 2017 21:05 - CONCLUSION: 1. Chronic hypertrophic change and postoperative change the patella and patellar tendon region. The cerclage wire in place. 2. Edema seen throughout the subcutaneous soft tissues. 3. Fatty atrophy of the medial gastrocnemius muscle. Tomasz Alexander MD Lower Extremity Ultrasound 08/27/17 2330 Signed Impressions: Service Date/Time: Monday, August 28, 2017 01:07 - CONCLUSION: Soft tissue swelling without deep venous thrombosis. Rene Noel MD Knee X-Ray [id number] Signed Impressions: Service Date/Time: Sunday, August 27, 2017 21:27 - CONCLUSION: 1. Previous patellar surgery as above. Trace joint fluid. No acute bony abnormality. No significant change since July 22. Clarence Gaston MD Head CT [id number] Signed Impressions: Service Date/Time: Sunday, August 27, 2017 22:04 - CONCLUSION: 1. No acute findings. Clarence Gaston MD Chest X-Ray [id number] Signed Impressions: Service Date/Time: Sunday, August 27, 2017 20:58 - CONCLUSION: 1. Ill-defined basilar airspace disease most characteristic of bronchopneumonia. Clarence Gaston MD Physical Exam CONSTITUTIONAL/GENERAL: This is an adequately nourished patient, in no apparent distress. TUBES/LINES/DRAINS: SKIN: No jaundice, rashes, or lesions. Few shallow wounds BLE. Skin temperature appropriate. Not diaphoretic. CARDIOVASCULAR: Regular rate and rhythm without murmurs, gallops, or rubs. No JVD. Peripheral pulses symmetric. RESPIRATORY/CHEST: Symmetric, unlabored respirations. Clear to auscultation. Breath sounds equal bilaterally. No wheezes, rales, or rhonchi. GASTROINTESTINAL: Abdomen soft, non-tender, nondistended. No hepato-splenomegaly , or palpable masses. No guarding. Bowel sounds present. GENITOURINARY: Without palpable bladder distension. MUSCULOSKELETAL: Extremities without clubbing, cyanosis, tight 3-4+ pitting edema BLE. No joint tenderness or effusion noted. No calf tenderness. No mottling or clubbing. R knee erythe,ma resolved LYMPHATICS: No palpable cervical or supraclavicular adenopathy. NEUROLOGICAL: Awake and alert. Motor and sensory grossly within normal limits. Follows commands. Clear speech. Moves all extremities. PSYCHIATRIC: No obvious anxiety/depression. no apparent hallucinations or other psychotic thought process. HIV Rhabdo (probably 2/2 drug interaction of pravastain and darunavir - cat C: darunavir will increase pravastain levels) - recurrent episode Assessment & Plan Remarks HIV dz PNA BLE edema MRSA bactermia - unknown source ? PNA, endocarditis ? Septic knee CT L knee w/o effusion 2 D [employer]. no veg's Phabdo likely 2/2 pravastatin in combination with HIV meds (darunavir) RVR Afib dc zosyn, cont vanco cont azithromycin will avoid pravastatin monitor amiodarone tx while on Prezcobix spurtum clx dw RN Lucita Vallejo MD Aug 30, 2017 14:50
--- NOTE | 2017-08-30 16:33 | ECHRPT ---
Indication: chf CONCLUSIONS Normal left ventricular size. Wall thickness is normal. The left ventricular systolic function is normal with an estimated ejection fraction in the range of 55-60%. Regional wall motion abnormalities cannot be completely excluded on the basis of this study. Mild thickening of the mitral valve leaflets. Mild mitral valve regurgitation. Trileaflet aortic valve. Moderate sclerosis of the noncoronary cusp. Moderate aortic regurgitatio n. There is trace tricuspid valve regurgitation. The estimated pulmonary arterial pressure is 35 mmHg. BP: 117 / 66 HR: 62 Rhythm: Sinus MEASUREMENTS (Male / Female) Normal Values Technical Quality:Fair DOPPLER AI Peak Velocity 360.0 cm/s AI Peak Gradient 51.8 mmHg AI Pressure Half Time 446.0 ms TR Peak Velocity 252.0 cm/s TR Peak Gradient 25.4 mmHg Right Atrial Pressure 10.0 mmHg Pulmonary Artery Systolic Pressu 35.4 mmHg Right Ventricular Systolic Press 35.4 mmHg FINDINGS LEFT VENTRICLE Normal left ventricular size. Wall thickness is normal. The left ventricular systolic function is normal with an estimated ejection fraction in the range of 55-60%. Regional wall motion abnormalities cannot be completely excluded on the basis of this study. MITRAL VALVE Mild thickening of the mitral valve leaflets. Mild mitral valve regurgitation. AORTIC VALVE Trileaflet aortic valve. Moderate sclerosis of the noncoronary cusp. Moderate aortic regurgitatio n. TRICUSPID VALVE Structurally normal tricuspid valve. There is trace tricuspid valve regurgitation. The estimated pulmonary arterial pressure is 35 mmHg. Leonel Davila MD (Electronically Signed) Final Date:30 August 2017 16:32
[2017-08-30] MEDS: FUROSEMIDE 40 MG/4 ML VIAL IV PUSH SCH (17:44)
[2017-08-30] MEDS: traZODone HCL 50 MG TAB PO SCH (20:39)
[2017-08-30] MEDS ORDERED: CHLORHEXIDINE GLUCONATE 2 % 1 PACK (2 CLOTHS)(extra cloths) TOPICAL PRN (21:15)
[2017-08-31] VITALS (19 sets, daily range): BP systolic 94–131; BP diastolic 60–70; PULSE 67–124; RESP 21–28; TEMP 98–98.5; O2SAT 88–95
[2017-08-31] MEDS: SODIUM CHLOR 0.9% 1000 ML INJ 1,000 ML IV SCH ×2 (00:09→21:05)
[2017-08-31] MEDS: RESP: ALBUTEROL 2.5 MG/IPRATROPIUM 0.5 MG NEB (SCH) INH ×4 (03:34→20:31)
[2017-08-31] MEDS: CHLORHEXIDINE GLUCONATE 2 % 1 PACK (2 CLOTHS)(taper/protocol) TOPICAL SCH (04:00)
[2017-08-31] MEDS: HEPARIN SODIUM - SQ 10,000 UNITS/ML VIAL SQ SCH ×3 (05:45→21:08)
[2017-08-31] MEDS: PIPERACIL-TAZO 3.375 GM PREMIX 50 ML IV SCH ×3 (05:45→18:00)
[2017-08-31 06:07] LABS: BICARBONATE 24.5 MEQ/L (21.0-32.0); CALCIUM 7.9 MG/DL (8.5-10.1); CREATININE 1.54 MG/DL (0.60-1.30)
[2017-08-31] MEDS: ABACAVIR SULFATE 300 MG TAB PO SCH (08:46)
[2017-08-31] MEDS: ACETAMINOPHEN/HYDROcodone 325 MG/10 MG TAB PO PRN (08:47)
[2017-08-31] MEDS: POTASSIUM CHLORIDE 10 MEQ CONTROLLED RELEASE TAB PO SCH (08:47)
[2017-08-31] MEDS: LISINOPRIL 10 MG TAB PO SCH (08:48)
[2017-08-31] MEDS: DIGOXIN 0.25 MG TAB PO SCH (08:48)
[2017-08-31] MEDS: ALPRAZolam 1 MG TAB PO SCH ×4 (08:48→21:05)
[2017-08-31] MEDS: AZITHROMYCIN 250 MG TAB PO SCH (08:48)
--- NOTE | 2017-08-31 08:48 | PD.CARD.PN ---
Subjective Subjective Remarks Feels better this morning. No chest pain or palpitation. HR well controlled @ 75BPM Objective Medications Current Medications Medications (Trade) Dose Ordered Sig/Calvin Route Start Time Stop Time Status Last Admin Sodium Chloride 1,000 ml @ 50 mls/hr Q20H IV 08/28/17 02:00 08/31/17 00:09 (NS Flush) 2 ml UNSCH PRN IV FLUSH 08/28/17 01:45 (NS Flush) 2 ml BID IV FLUSH 08/28/17 09:00 08/30/17 20:39 (Tylenol) 650 mg Q4H PRN PO 08/28/17 01:45 (Compazine Supp) 25 mg Q12H PRN RECTAL 08/28/17 01:45 (Heparin Inj) 5,000 units Q8H SQ 08/28/17 06:00 08/31/17 05:45 (Narcan Inj) 0.4 mg UNSCH PRN IV PUSH 08/28/17 01:45 (Duoneb Neb) 1 ampule Q6HR NEB INH 08/28/17 04:00 08/31/17 03:34 (Duoneb Neb) 1 ampule Q4HR NEB PRN INH 08/28/17 01:45 Piperacillin Sod/ Tazobactam Sod 50 ml @ 100 mls/hr Q6H IV 08/28/17 12:00 08/31/17 05:45 Pharmacy Profile Note 0 ml @ 0 mls/hr UNSCH OTHER 08/28/17 10:15 (Xanax) 1 mg QID PO 08/28/17 13:00 08/30/17 20:39 (Maynard 10-325 Mg) 1 tab Q8HR PRN PO 08/28/17 10:30 08/30/17 23:00 (Prinivil) 10 mg DAILY PO 08/28/17 12:30 (Desyrel) 150 mg HS PO 08/28/17 21:00 08/30/17 20:39 (KCl) 30 meq DAILY PO 08/29/17 09:00 08/30/17 08:46 (Epivir) 300 mg DAILY PO 08/28/17 13:00 08/30/17 08:48 (Ziagen) 600 mg DAILY PO 08/28/17 13:00 08/30/17 08:46 Vancomycin HCl 2000 mg/Sodium Chloride 520 ml @ 250 mls/hr Q18H IV 08/28/17 14:00 08/30/17 20:39 Miscellaneous Information SPECIFIC LAB TO BE DRAWN:VANCOMYCIN TROUGH DATE TO... ONCE ONCE .XX 08/31/17 19:45 08/31/17 19:46 Patient Own Medication PT OWN: PREZCOBIX (DARUNA... DAILY PO 08/28/17 17:00 08/30/17 08:47 (Zithromax) 500 mg DAILY PO 08/29/17 09:00 08/30/17 08:46 (Lopressor) 50 mg Q12HR PO 08/29/17 09:00 08/30/17 20:40 (Lanoxin) 0.25 mg DAILY PO 08/29/17 09:00 08/30/17 08:44 (Eliquis) 5 mg BID PO 08/30/17 09:00 08/30/17 20:39 Amiodarone HCl 450 mg/Sodium Chloride 250 ml @ 33.33 mls/ hr Q7H31M PRN IV 08/30/17 10:00 08/30/17 21:20 (Lasix Inj) 40 mg BID@09,18 IV PUSH 08/30/17 18:00 08/30/17 17:44 Miscellaneous Information Patient in critical care unit? Ass... Q361D .XX 08/30/17 21:15 08/30/17 21:15 (Chlorhexidine 2% Cloth) 3 pack DAILY@04 TOPICAL 08/31/17 04:00 09/04/17 04:01 08/31/17 04:00 (Chlorhexidine 2% Cloth) 3 pack UNSCH PRN TOPICAL 08/30/17 21:15 09/04/17 21:09 Vital Signs / I&O Vital Signs Date Time Temp Pulse Resp B/P (MAP) Pulse Ox O2 Delivery O2 Flow Rate FiO2 08/31/17 06:00 68 08/31/17 04:00 98.5 96 28 94/62 (73) 08/31/17 04:00 96 08/31/17 02:00 70 08/31/17 00:00 80 08/31/17 00:00 98.1 80 25 100/61 (74) 92 08/30/17 22:00 72 08/30/17 21:20 77 100/66 08/30/17 20:25 93 21 08/30/17 20:00 70 08/30/17 20:00 97.6 70 22 104/59 (74) 95 08/30/17 18:36 93 105/65 08/30/17 18:00 93 08/30/17 17:09 72 90/62 08/30/17 16:00 98.5 86 25 93/60 (71) 93 08/30/17 16:00 86 08/30/17 15:00 110 28 85/56 (66) 94 08/30/17 14:00 81 24 85/54 (64) 91 08/30/17 14:00 96 08/30/17 13:18 15 08/30/17 13:00 92 25 91/61 (71) 91 08/30/17 12:00 98.5 96 21 89/61 (70) 89 08/30/17 12:00 96 08/30/17 11:09 102 112/64 08/30/17 11:07 103 112/64 08/30/17 10:00 130 08/30/17 10:00 98.5 130 16 112/64 (80) 95 I/O 08/30/17 08/30/17 08/30/17 08/31/17 08/31/17 08/31/17 07:00 15:00 23:00 07:00 15:00 23:00 Intake Total 50 ml 3442 ml 1290 ml Output Total 600 ml 1650 ml Balance -550 ml 1792 ml 1290 ml Intake Oral 0 ml 570 ml 240 ml IV Total 50 ml 2872 ml 1050 ml Output Urine Total 600 ml 1650 ml # Voids 3 4 # Bowel Movements 1 0 2 Physical Exam Lungs clear No murmur Laboratory Laboratory Tests Test 08/30/17 10:35 08/31/17 04:50 Nasal Screen MRSA (PCR) MRSA DETECTED Blood Urea Nitrogen 10 MG/DL Creatinine 1.54 MG/DL Random Glucose 108 MG/DL Calcium Level 7.9 MG/DL Sodium Level 138 MEQ/L Potassium Level 3.8 MEQ/L Chloride Level 104 MEQ/L Carbon Dioxide Level 24.5 MEQ/L Anion Gap 10 MEQ/L Estimat Glomerular Filtration Rate 45 ML/MIN Assessment and Plan Assessment and Plan Have added eliquis 5 mg bid. Continue amiio p.o. Will plan elective cardioversion in 2-3 weeks. Discussed with patient and he is agreeable Arron Lindo MD Aug 31, 2017 08:48
[2017-08-31] MEDS: APIXABAN 5 MG TABLET PO SCH ×2 (08:50→21:05)
[2017-08-31] MEDS: METOPROLOL TARTRATE 50 MG TAB PO SCH ×2 (08:50→21:05)
[2017-08-31] MEDS: FUROSEMIDE 40 MG/4 ML VIAL IV PUSH SCH ×2 (08:50→18:00)
[2017-08-31] MEDS: PREZCOBIX PO SCH (08:50)
[2017-08-31] MEDS: SODIUM CHLORIDE 0.9% FLUSH 10 ML FLUSH IV FLUSH SCH ×2 (08:56→21:05)
[2017-08-31] MEDS: COLLAGENASE OINT 30 GM TUBE TOPICAL SCH (12:00)
--- NOTE | 2017-08-31 12:59 | PD.WCN.NOT ---
Wound Consult Description: Received consult from Doctor Rojas for wound management of LE Communicated with: Doctor Xie and JOCELYN Colindres [facility] Recommendation: Please cleanse wounds to L ely, L elbow and L knee with normal saline and pat dry L elbow 1.Cover wound with Versatel and dry 4x4 gauze, secured with rolled gauze and tape. 2. Change dressing every 3 days or PRN if saturated or dislodged. L knee 1.Apply Santyl jones thickness to wound bed. 2.Cover with dry 4x4 gauze, secure with rolled gauze and tape. 3. Change dressing daily L ely 1.Apply Optilock dressing over heavily draining small diffuse wounds 2.Secure with rolled gauze and tape. 3. Change every 3 days or PRN if saturated or dislodged Additional Information: Patient seen on 5th floor [facility] for wound management of LE. Spoke with JOCELYN Colindres before entering patient's room. RN is concerned about wound on L elbow. Patient is laying on Pretty bed finishing breakfast when web content writer arrived. Assessed BLE. BLE are noted with hard non pitting edema Scabs and diffuse small ulcers are noted to L ely area. Small partial thickness ulcers are draining moderate thin serous drainage that presents without odor. Wounds were cleansed with normal saline and patted dry. Applied Optilock over moderately draining ulcers and secured with rolled gauze and tape. Removed saturated transparent dressing in place to L knee to reveal open shallow full thickness wound to L knee. Wound measures 3cmx 3.9cm x ~0.1cm. Wound bed presents with ~80% pink tissue and ~20% yellow slough. Cleansed wound with normal saline and patted dry. Patient states,"I fell at home and got rug burn on my knee." Periwound is unremarkable. Wound drainage is sero-sanguinous and without odor. Applied dry gauze over wound bed and secured with paper tape. Removed dry gauze and tape dressing to L elbow to two reveal abrasions. One abrasion is partially scabbed. Cleansed abrasions with normal saline and patted dry. Applied Versatel over wound beds and covered with dry 4x4 gauze pads, secured with rolled gauze and tape. Patient tolerated wound assessment well, with complaints of pain. RN Bernadine to apply Santyl and dressings noted above to L knee wound when supplies area available.Patient was transferred to bedside commode with the assistance of web content writer with call light in reach. Instructed patient push call button for assistance back to bed before leaving room. Lizette Lutz [facility] Aug 31, 2017 12:59
[2017-08-31] MEDS ORDERED: PHARMACY ORDERED LAB ONE (13:45)
--- NOTE | 2017-08-31 13:59 | PD.CONS ---
[facility] Service Nephrology Consult Requested By Dr. Xie Reason for Consult Worsening renal function with increased lower extremity edema. Primary Care Physician Sandi Pastrana MD History of Present Illness Patient is a 67-year-old white male with a past medical history of HIV, Bipolar , HTN, BPH and HLD. He being admitted for rhabdomyolysis and lower extremity edema. He reports that his lower extremity edema has been going on for approximately 2 weeks and he in the past has had issues with this. Rhabdomyolysis is suspected related to pravastatin which is on hold now. Nephrology is consulted for worsening renal indices with a creatine of 1.54 which is up from 1.32 and increasing lower extremity edema. He denies any past medical history of CKD. Patient is found to have MRSA bacteremia and ID is managing. He is also new onset AFIB RVR and cardiology is managing. (Loree Lind) Review of Systems Respiratory: DENIES: Sputum production, Shortness of breath Cardiovascular: COMPLAINS OF: Lower Extremity Edema, DENIES: Chest pain Gastrointestinal: DENIES: Abdominal pain, Diarrhea, Nausea, Vomiting Musculoskeletal: COMPLAINS OF: Muscle aches, Stiffness Psychiatric: COMPLAINS OF: Depression (Loree Lind) Past Family Social History Allergies: Coded Allergies: emtricitabine (Unverified Adverse Reaction, Severe, AMS, N&V, H/A, LEG SWELLING, 08/27/17) tenofovir (Unverified Adverse Reaction, Severe, AMS, N&V, H/A, LEG SWELLING, 08/27/17) Past Medical History HTN HLD HIV for 30 years Bipolar Past Surgical History Left patellar surgery Active Ordered Medications Current Medications Medications (Trade) Dose Ordered Sig/Calvin Route Start Time Stop Time Status Last Admin Sodium Chloride 1,000 ml @ 50 mls/hr Q20H IV 08/28/17 02:00 08/31/17 00:09 (NS Flush) 2 ml UNSCH PRN IV FLUSH 08/28/17 01:45 (NS Flush) 2 ml BID IV FLUSH 08/28/17 09:00 08/31/17 08:56 (Tylenol) 650 mg Q4H PRN PO 08/28/17 01:45 (Compazine Supp) 25 mg Q12H PRN RECTAL 08/28/17 01:45 (Heparin Inj) 5,000 units Q8H SQ 08/28/17 06:00 08/31/17 05:45 (Narcan Inj) 0.4 mg UNSCH PRN IV PUSH 08/28/17 01:45 (Duoneb Neb) 1 ampule Q6HR NEB INH 08/28/17 04:00 08/31/17 09:34 (Duoneb Neb) 1 ampule Q4HR NEB PRN INH 08/28/17 01:45 Piperacillin Sod/ Tazobactam Sod 50 ml @ 100 mls/hr Q6H IV 08/28/17 12:00 08/31/17 05:45 Pharmacy Profile Note 0 ml @ 0 mls/hr UNSCH OTHER 08/28/17 10:15 (Xanax) 1 mg QID PO 08/28/17 13:00 08/31/17 08:48 ([place] 10-325 Mg) 1 tab Q8HR PRN PO 08/28/17 10:30 08/31/17 08:47 (Prinivil) 10 mg DAILY PO 08/28/17 12:30 08/31/17 08:48 (Desyrel) 150 mg HS PO 08/28/17 21:00 08/30/17 20:39 (KCl) 30 meq DAILY PO 08/29/17 09:00 08/31/17 08:47 (Epivir) 300 mg DAILY PO 08/28/17 13:00 08/31/17 08:47 (Ziagen) 600 mg DAILY PO 08/28/17 13:00 08/31/17 08:46 Vancomycin HCl 2000 mg/Sodium Chloride 520 ml @ 250 mls/hr Q18H IV 08/28/17 14:00 08/30/17 20:39 Miscellaneous Information SPECIFIC LAB TO BE DRAWN:VANCOMYCIN TROUGH DATE TO... ONCE ONCE .XX 08/31/17 13:45 08/31/17 13:46 Patient Own Medication PT OWN: PREZCOBIX (DARUNA... DAILY PO 08/28/17 17:00 08/31/17 08:50 (Zithromax) 500 mg DAILY PO 08/29/17 09:00 08/31/17 08:48 (Lopressor) 50 mg Q12HR PO 08/29/17 09:00 08/31/17 08:50 (Lanoxin) 0.25 mg DAILY PO 08/29/17 09:00 08/31/17 08:48 (Eliquis) 5 mg BID PO 08/30/17 09:00 08/31/17 08:50 (Lasix Inj) 40 mg BID@,18 IV PUSH 08/30/17 18:00 08/31/17 08:50 Miscellaneous Information Patient in critical care unit? Ass... Q361D .XX 08/30/17 21:15 08/30/17 21:15 (Chlorhexidine 2% Cloth) 3 pack DAILY@04 TOPICAL 08/31/17 04:00 09/04/17 04:01 08/31/17 04:00 (Chlorhexidine 2% Cloth) 3 pack UNSCH PRN TOPICAL 08/30/17 21:15 09/04/17 21:09 (Cordarone) 200 mg Q12HR PO 08/31/17 09:00 (Santyl Oint) 1 applic DAILY TOPICAL 08/31/17 12:00 Family History No family history of kidney disease Family history of cancer Social History Denies tobacco or ETOH use Lives with partner (Loree Lind) Physical Exam Vital Signs Vital Signs Date Time Temp Pulse Resp B/P (MAP) Pulse Ox O2 Delivery O2 Flow Rate FiO2 08/31/17 09:35 95 21 08/31/17 09:00 97 08/31/17 08:57 87 101/70 08/31/17 08:00 98.5 73 24 101/70 (80) 95 08/31/17 08:00 73 08/31/17 07:00 119 08/31/17 06:00 68 08/31/17 04:00 98.5 96 28 94/62 (73) 08/31/17 04:00 96 08/31/17 02:00 70 08/31/17 00:00 80 08/31/17 00:00 98.1 80 25 100/61 (74) 92 08/30/17 22:00 72 08/30/17 21:20 77 100/66 08/30/17 20:25 93 21 08/30/17 20:00 70 08/30/17 20:00 97.6 70 22 104/59 (74) 95 08/30/17 18:36 93 105/65 08/30/17 18:00 93 08/30/17 17:09 72 90/62 08/30/17 16:00 98.5 86 25 93/60 (71) 93 08/30/17 16:00 86 08/30/17 15:00 110 28 85/56 (66) 94 08/30/17 14:00 81 24 85/54 (64) 91 08/30/17 14:00 96 Physical Exam GENERAL: Alert and oriented. SKIN: Warm and dry. HEAD: Normocephalic. EYES: No scleral icterus. No injection or drainage. NECK: Supple, trachea midline. No JVD or lymphadenopathy. CARDIOVASCULAR: Regular rate and rhythm without murmurs, gallops, or rubs. RESPIRATORY: Breath sounds equal bilaterally. No accessory muscle use. GASTROINTESTINAL: Abdomen soft, non-tender, nondistended. MUSCULOSKELETAL: No cyanosis. Moderate dependent edema in lower extremity BACK: Nontender without obvious deformity. No CVA tenderness. Laboratory Laboratory Tests Test 08/31/17 04:50 Blood Urea Nitrogen 10 Creatinine 1.54 Random Glucose 108 Calcium Level 7.9 Sodium Level 138 Potassium Level 3.8 Chloride Level 104 Carbon Dioxide Level 24.5 Anion Gap 10 Estimat Glomerular Filtration Rate 45 Date/Time Source Procedure Growth Status 08/27/17 21:00 Blood Peripheral Aerobic Blood Culture - Final S. Aureus Mrsa Resulted 08/27/17 21:00 Blood Peripheral Anaerobic Blood Culture - Preliminary NO GROWTH IN 4 DAYS Resulted (Loree Lind) Result Diagram: 08/29/17 1041 08/31/17 0450 Imaging Last Impressions Lower Extremity CT 08/29/17 0000 Signed Impressions: Service Date/Time: Tuesday, August 29, 2017 21:05 - CONCLUSION: 1. Chronic hypertrophic change and postoperative change the patella and patellar tendon region. The cerclage wire in place. 2. Edema seen throughout the subcutaneous soft tissues. 3. Fatty atrophy of the medial gastrocnemius muscle. Tomasz Alexander MD Lower Extremity Ultrasound 08/27/17 2330 Signed Impressions: Service Date/Time: Monday, August 28, 2017 01:07 - CONCLUSION: Soft tissue swelling without deep venous thrombosis. Rene Noel MD Knee X-Ray 08/27/171 Signed Impressions: Service Date/Time: Sunday, August 27, 2017 21:27 - CONCLUSION: 1. Previous patellar surgery as above. Trace joint fluid. No acute bony abnormality. No significant change since July 22. Clarence Gaston MD Head CT [id number]/27/[id number] Signed Impressions: Service Date/Time: Sunday, August 27, 2017 22:04 - CONCLUSION: 1. No acute findings. Clarence Gaston MD Chest X-Ray [id number]/27/[id number] Signed Impressions: Service Date/Time: Sunday, August 27, 2017 20:58 - CONCLUSION: 1. Ill-defined basilar airspace disease most characteristic of bronchopneumonia. Clarence Gaston MD (Loree Lind) Assessment and Plan Problem List: (1) ANDREA (acute kidney injury) ICD Codes: N17.9 - Acute kidney failure, unspecified Plan: Acute kidney injury possibly related to rhabdomyolysis Patient creatinine in July 2017 was less than 1. Creatinine at 1.54 now with good UOP Plan UA C+S Renal US Continue lasix will add albumin X 2 days. Serology ordered Urine studies Will monitor UOP and BMP (2) Bilateral leg edema ICD Codes: R60.0 - Localized edema Plan: continue lasix Albumin added (3) HIV (human immunodeficiency virus infection) ICD Codes: B20 - Human immunodeficiency virus [HIV] disease Status: Chronic Plan: continue home medications. (4) Rhabdomyolysis ICD Codes: M62.82 - Rhabdomyolysis Status: Acute Plan: continue IVF (5) Urinary retention ICD Codes: R33.9 - Retention of urine, unspecified Status: Acute Plan: renal US ordered patient with past medical history of BPH (Loree Lind) Problem List: (1) ANDREA (acute kidney injury) ICD Codes: N17.9 - Acute kidney failure, unspecified Plan: Acute kidney injury possibly related to rhabdomyolysis Patient creatinine in July 2017 was less than 1. Creatinine at 1.54 now with good UOP Plan UA C+S Renal US Continue lasix will add albumin X 2 days. Serology ordered Urine studies Will monitor UOP and BMP. Patient seen and examined, agree with above. Has edema, continue Lasix, follow the urine out put and BMP. (2) Bilateral leg edema ICD Codes: R60.0 - Localized edema Plan: continue lasix Albumin added (3) HIV (human immunodeficiency virus infection) ICD Codes: B20 - Human immunodeficiency virus [HIV] disease Status: Chronic Plan: continue home medications. (4) Rhabdomyolysis ICD Codes: M62.82 - Rhabdomyolysis Status: Acute Plan: continue IVF (5) Urinary retention ICD Codes: R33.9 - Retention of urine, unspecified Status: Acute Plan: renal US ordered patient with past medical history of BPH (Sergey Canales MD) Loree Lind Aug 31, 2017 13:59 Sergey Canales MD Aug 31, 2017 18:46
[2017-08-31 14:26] LABS: CREATININE 1.54 MG/DL (0.60-1.30)
[2017-08-31] MEDS: AMIODARONE 200 MG TAB PO SCH ×2 (14:39→21:06)
[2017-08-31] MEDS: VANCOMYCIN INJ 2,000 MG in SODIUM CHLORID 0.9% 500 ML INJ 500 ML IV SCH (14:39)
--- NOTE | 2017-08-31 16:03 | HHI.PR ---
Subjective Remarks Patient reports feeling a little lightheaded. He was getting tachycardic up to the 140s. He is transferred to the [facility] for closer monitoring on the amiodarone drip that he was started on by cardiology. Patient feels like his left leg is much stronger Objective Vital Signs Date Time Temp Pulse Resp B/P (MAP) Pulse Ox O2 Delivery O2 Flow Rate FiO2 08/31/17 15:00 74 08/31/17 14:00 72 08/31/17 13:00 68 08/31/17 12:00 98.0 67 21 101/63 (76) 94 08/31/17 12:00 67 08/31/17 11:00 108 08/31/17 09:35 95 21 08/31/17 09:00 97 08/31/17 08:57 87 101/70 08/31/17 08:00 98.5 73 24 101/70 (80) 95 08/31/17 08:00 73 08/31/17 07:00 119 08/31/17 06:00 68 08/31/17 04:00 98.5 96 28 94/62 (73) 08/31/17 04:00 96 08/31/17 02:00 70 08/31/17 00:00 80 08/31/17 00:00 98.1 80 25 100/61 (74) 92 08/30/17 22:00 72 08/30/17 21:20 77 100/66 08/30/17 20:25 93 21 08/30/17 20:00 70 08/30/17 20:00 97.6 70 22 104/59 (74) 95 08/30/17 18:36 93 105/65 08/30/17 18:00 93 08/30/17 17:09 72 90/62 I/O 08/30/17 08/30/17 08/30/17 08/31/17 08/31/17 08/31/17 07:00 15:00 23:00 07:00 15:00 23:00 Intake Total 50 ml 3442 ml 1290 ml 900 ml Output Total 600 ml 1650 ml Balance -550 ml 1792 ml 1290 ml 900 ml Intake Oral 0 ml 570 ml 240 ml 900 ml IV Total 50 ml 2872 ml 1050 ml Output Urine Total 600 ml 1650 ml # Voids 3 4 6 # Bowel Movements 1 0 2 3 Result Diagram: 08/29/17 1041 08/31/17 0450 Objective Remarks Moderate to severe bilateral lower extremity edema with no chloé erythema appreciated today Heart sounds indicate regular rate but an irregular rhythm, lungs are clear bilaterally, unlabored breathing A/P Assessment and Plan Rhabdomyolysis -IV fluids -differential includes HIV followed by polypharmacy - D/w with pharmacy, namely statin, Seroquel, Remeron -I will hold these medications for now. -Infectious disease following to help minimize antibiotics that would contribute to this LE edema -Continues to worsen, consulted nephrology given worsening renal failure upon Lasix, appreciate recommendations, albumin has been started MRSA bacteremia -ID following, on vancomycin and azithromycin Possible LLL cellulitis - continue azithromycin and vancomycin -Wound care consulted, appreciate recommendations Possible PNA - clinical PNA. I independently reviewed the chest x-ray and I am not impressed for any particular infiltrates however clinically he does have the symptoms. -Azithromycin and vancomycin; infectious disease is following and managing HIV - ID following, managing chronic HAART meds in light of rhabdo Afib - lopressor per cards; now also on p.o. amiodarone Weakness in legs - likely 2/2 rhabdo; PT -Much improved since admission Bipolar disorder/depression - holding duloxetine and contniue trazodone, holding Remeron and Seroquel in light of rhabdomyolysis Kiet Xei MD Aug 31, 2017 16:03
--- NOTE | 2017-08-31 17:24 | RADRPT ---
EXAM DATE/TIME: 08/31/2017 16:10 [place] COMPARISON: US KIDNEY/RENAL/BLADDER, July 20, 2017, 8:58. INDICATIONS : Increased BUN/creatinine. MEDICAL HISTORY : Myocardial infarction. Congestive heart failure. Osteoporosis. DVT. HTN. Oliguria. Inguinal hernia. A rthritis. HIV. Hep A. Leukiemia. Lymphoma. Throat cancer. Bipolar disorder. Depression. MRSA. SURGICAL HISTORY : Left patella surgery. Chemotherapy. Radiation therapy. ENCOUNTER: Subsequent ACUITY: 1 month PAIN SCORE: 0/10 LOCATION: Bilateral flank MEASUREMENTS: RIGHT KIDNEY: 12.5 x 4.7 x 5.5 cm LEFT KIDNEY: 12.1 x 5.0 x 6.8 cm FINDINGS: RIGHT KIDNEY: Renal cortex is normal in thickness and increased echogenicity compared to the liver. No hydronephros is, stone, or solid mass. There is a small cyst measuring 1.4 cm. LEFT KIDNEY: Renal cortex is normal in thickness and increased echogenicity. No hydronephrosis, stone, or solid ma ss. There is a simple cyst in the lower pole measuring up to 2.8 cm in BLADDER: Within normal limits given the degree of distension. CONCLUSION: 1. No evidence for hydronephrosis. 2. The kidneys are increased in echogenicity most characteristic of medical renal disease. Justino Perez MD on August 31, 2017 at 17:21 Board Certified Radiologist. This report was verified electronically.
[2017-08-31] MEDS: ALBUMIN 5% INJ 250 ML IV SCH (18:00)
[2017-08-31 18:58] LABS: BILIRUBIN, URINE NEG (NEG); BLOOD, URINE NEG (NEG); GLUCOSE,URINE NEG (NEG); KETONE, URINE NEG (NEG); NITRITE,URINE NEG (NEG); PH, URINE 5.5 (5.0-8.5); SQUAMOUS EPITHELIAL CELL URINE <1 /hpf (0-5); URINE COLOR LIGHT-YELLOW (YELLW/STRAW); URINE LEUKOCYTE ESTERASE TRACE (NEG)
[2017-08-31 20:27] LABS: CREATININE, RANDOM URINE 13.3 MG/DL
[2017-08-31] MEDS: traZODone HCL 50 MG TAB PO SCH (21:06)
[2017-09-01] VITALS (8 sets, daily range): BP systolic 101–117; BP diastolic 59–63; PULSE 70–123; RESP 24–34; TEMP 97.8–98.4; O2SAT 91–94
[2017-09-01] MEDS: PIPERACIL-TAZO 3.375 GM PREMIX 50 ML IV SCH ×3 (01:03→11:57)
[2017-09-01] MEDS: CHLORHEXIDINE GLUCONATE 2 % 1 PACK (2 CLOTHS)(taper/protocol) TOPICAL SCH (04:00)
[2017-09-01] MEDS: ALBUMIN 5% INJ 250 ML IV SCH (04:50)
[2017-09-01] MEDS: HEPARIN SODIUM - SQ 10,000 UNITS/ML VIAL SQ SCH (06:33)
[2017-09-01] MEDS: PREZCOBIX PO SCH (09:00)
[2017-09-01] MEDS: ALPRAZolam 1 MG TAB PO SCH ×2 (09:34→11:57)
[2017-09-01] MEDS: LISINOPRIL 10 MG TAB PO SCH (09:34)
[2017-09-01] MEDS: METOPROLOL TARTRATE 50 MG TAB PO SCH (09:35)
[2017-09-01] MEDS: AMIODARONE 200 MG TAB PO SCH (09:35)
[2017-09-01] MEDS: APIXABAN 5 MG TABLET PO SCH (09:35)
[2017-09-01] MEDS: POTASSIUM CHLORIDE 10 MEQ CONTROLLED RELEASE TAB PO SCH (09:35)
[2017-09-01] MEDS: DIGOXIN 0.25 MG TAB PO SCH (09:35)
[2017-09-01] MEDS: ABACAVIR SULFATE 300 MG TAB PO SCH (09:36)
[2017-09-01] MEDS: AZITHROMYCIN 250 MG TAB PO SCH (09:36)
[2017-09-01] MEDS: COLLAGENASE OINT 30 GM TUBE TOPICAL SCH (09:36)
[2017-09-01] MEDS: SODIUM CHLORIDE 0.9% FLUSH 10 ML FLUSH IV FLUSH SCH (09:37)
[2017-09-01] MEDS: FUROSEMIDE 40 MG/4 ML VIAL IV PUSH SCH (09:37)
--- NOTE | 2017-09-01 13:43 | HHI.NPPN ---
Subjective History of Present Illness 67-year-old white male with a past medical history of HIV, Bipolar, HTN, BPH and HLD. He being admitted for rhabdomyolysis and lower extremity edema. He reports that his lower extremity edema has been going on for approximately 2 weeks and he in the past has had issues with this. Rhabdomyolysis is suspected related to pravastatin which is on hold now. Nephrology is consulted for worsening renal indices. Additional Remarks Patient is alert, not fully oriented, not in distress. Objective Data Data Vital Signs Date Time Temp Pulse Resp B/P (MAP) Pulse Ox O2 Delivery O2 Flow Rate FiO2 09/01/17 12:00 72 09/01/17 08:08 94 09/01/17 08:00 70 09/01/17 06:00 75 09/01/17 04:00 98.2 94 25 101/63 (76) 91 09/01/17 04:00 94 09/01/17 02:00 74 09/01/17 00:00 98.4 98 24 110/59 (76) 91 09/01/17 00:00 98 08/31/17 22:00 124 08/31/17 20:32 94 21 08/31/17 20:00 98.2 100 21 131/69 (89) 88 08/31/17 20:00 100 08/31/17 18:00 110 08/31/17 17:00 110 08/31/17 16:00 98.3 71 21 105/60 (75) 94 08/31/17 16:00 71 08/31/17 15:00 74 08/31/17 14:00 72 -: 08/29/17 1041 08/31/17 0450 Physical Exam General Appearance: No Acute Distress, Comfortable Eyes Eye Exam: Pupils Equal Throat Throat Exam: Oral Mucosa [place] & Moist Neck Neck Exam: Neck Supple Pulmonary Resp Exam: Breath Sounds Equal, No Distress, Rhonchi, Decreased Bases Cardiology CV Exam: Regular, Normal Sinus Rhythm Gastrointestinal/Abdomen GI Exam: Soft, Non-Tender, Bowel Sounds Present Extremeties Extremities Exam: Moderate Edema, Pitting Edema, Dependent Edema Neurologic Neuro Exam: Alert, Awake Assessment/Plan Problem List: (1) ANDREA (acute kidney injury) ICD Codes: N17.9 - Acute kidney failure, unspecified Plan: Acute kidney injury possibly related to rhabdomyolysis Patient creatinine in July 2017 was less than 1. Creatinine at 1.54 now with good UOP Plan UA C+S Renal US Continue lasix will add albumin X 2 days. Serology ordered Urine studies Will monitor UOP and BMP. Has edema, continue Lasix, follow the urine out put and BMP. D/C IVF, Creatinine is almost same. (2) Bilateral leg edema ICD Codes: R60.0 - Localized edema Plan: continue lasix Albumin added (3) HIV (human immunodeficiency virus infection) ICD Codes: B20 - Human immunodeficiency virus [HIV] disease Status: Chronic Plan: continue home medications. (4) Rhabdomyolysis ICD Codes: M62.82 - Rhabdomyolysis Status: Acute Plan: continue IVF (5) Urinary retention ICD Codes: R33.9 - Retention of urine, unspecified Status: Acute Plan: renal US ordered patient with past medical history of BPH Sergey Canales MD Sep 01, 2017 13:43
--- NOTE | 2017-09-01 14:39 | HHI.PR ---
Subjective Remarks Follow-up for tachycardia, lightheadedness No more lightheadedness, no fever or chills. Patient feels good. No diarrhea. Confusion resolved. Patient is aware that he was confused when he was admitted. Presently, patient wants to leave AGAINST MEDICAL ADVICE because he has to take care of his pets. Patient's risk of going home including morbidity and mortality were explained. He said he wants to leave AMA. Objective Vitals Vital Signs Date Time Temp Pulse Resp B/P (MAP) Pulse Ox O2 Delivery O2 Flow Rate FiO2 09/01/17 12:00 72 09/01/17 08:08 94 09/01/17 08:00 70 09/01/17 06:00 75 09/01/17 04:00 98.2 94 25 101/63 (76) 91 09/01/17 04:00 94 09/01/17 02:00 74 09/01/17 00:00 98.4 98 24 110/59 (76) 91 09/01/17 00:00 98 08/31/17 22:00 124 08/31/17 20:32 94 21 08/31/17 20:00 98.2 100 21 131/69 (89) 88 08/31/17 20:00 100 08/31/17 18:00 110 08/31/17 17:00 110 08/31/17 16:00 98.3 71 21 105/60 (75) 94 08/31/17 16:00 71 08/31/17 15:00 74 I/O 08/31/17 08/31/17 08/31/17 09/01/17 09/01/17 09/01/17 07:00 15:00 23:00 07:00 15:00 23:00 Intake Total 1290 ml 900 ml 570 ml 480 ml Balance 1290 ml 900 ml 570 ml 480 ml Intake Oral 240 ml 900 ml 480 ml IV Total 1050 ml 570 ml # Voids 4 8 9 # Bowel Movements 2 4 2 Result Diagram: 08/29/17 1041 08/31/17 0450 Objective Remarks Not in distress Coherent [place] conjunctivae, anicteric sclera Regular rate and rhythm Clear breath sounds Abdomen soft nontender Alert awake and oriented 3. A/P Problem List: (1) Bilateral leg edema ICD Code: R60.0 - Localized edema (2) Rhabdomyolysis ICD Code: M62.82 - Rhabdomyolysis Status: Acute (3) HIV (human immunodeficiency virus infection) ICD Code: B20 - Human immunodeficiency virus [HIV] disease Status: Chronic Assessment and Plan This is a 67-year-old male with history of HIV, presenting with bacteremia Acute renal failure-could be secondary to ATN, secondary to rhabdomyolysis, ultrasound of the kidneys did not show any obstruction, showed medical renal disease. Continue albumin with Lasix, follow-up workup per nephrology. Urinalysis unremarkable. Rhabdomyolysis-likely secondary to statin-induced plus HIV medications. Statin stopped. Monitor. Also on Remeron and Seroquel, these were stopped. LE edema-Continues to worsen, consulted nephrology given worsening renal failure upon Lasix, appreciate recommendations, albumin has been started MRSA bacteremia -ID following, on vancomycin and azithromycin, etiology unknown , possible pneumonia, follow-up sputum culture. CT scan of the left knee unremarkable, there is no effusion. TTE negative without any vegetations. We will stop Zosyn. Possible LLL cellulitis -- continue azithromycin and vancomycin,Wound care consulted, appreciate recommendations Possible PNA--as above, continue vancomycin and azithromycin, follow-up sputum culture. Chest x-ray not impressive. HIV- ID following, HAART meds per ID. Afib, RVR-cardiology on board, continue amiodarone, started on Eliquis, cardioversion in 2-3 weeks. Echocardiogram unremarkable. Continue metoprolol and digoxin. Bipolar disorder/depression - holding duloxetine and contniue trazodone, holding Remeron and Seroquel in light of rhabdomyolysis DVT prophylaxis: Eliquis. After discussing with patient today however, he wants to leave AGAINST MEDICAL ADVICE. He is aware that he has MRSA bacteremia and worsening renal failure and has a very high risk of returning to the hospital with the same infection or can even cause mortality. Patient says that he said he wants to go home because he feels good. He has capacity to make decision. He was able to verbalize back that if he becomes sick again, he will come back to the hospital. He is also aware that he may become too sick that it can be too late for him and he can . He still elected to go home AGAINST MEDICAL ADVICE. Miki Martinez MD Sep 01, 2017 14:39
--- NOTE | 2017-09-01 15:48 | HHI.DS ---
Discharge Summary Admission Date Aug 27, 2017 at 23:37 Discharge Date: Sep 01, 2017 Admitting Diagnosis rhabdomyolysis, pneumonia, lower extremities cellulitis (1) Bilateral leg edema ICD Code: R60.0 - Localized edema Diagnosis: Principal (2) Rhabdomyolysis ICD Code: M62.82 - Rhabdomyolysis Status: Acute (3) HIV (human immunodeficiency virus infection) ICD Code: B20 - Human immunodeficiency virus [HIV] disease Status: Chronic Procedures none Brief History - From Admission 67-year-old white male being admitted for rhabdomyolysis and recurrent lower extremity edema. Patient states he was in his usual state of health until yesterday when he says he was walking and apparently tripped over his dog with his left foot and felt his left knee completely giveaway. 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 Patient denies having any chest pain shortness of breath or lightheadedness surrounding the incident. He also reports having a new onset wet productive cough for the past 2 days and recurring worsening lower extremity edema within the past week. He does report having some gradually increasing weakness in his left lower leg over the past few weeks; his left leg is also red. CBC/BMP: 08/29/17 1041 08/31/17 0450 Significant Findings Laboratory Tests Test 08/30/17 10:35 08/31/17 04:50 08/31/17 14:09 08/31/17 16:20 Creatinine 1.54 MG/DL (0.60-1.30) Random Glucose 108 MG/DL (74-106) Calcium Level 7.9 MG/DL (8.5-10.1) Estimat Glomerular Filtration Rate 45 ML/MIN (>89) Vancomycin Level Trough 28.5 MCG/ML (5.0-10.0) Urine Leukocyte Esterase TRACE (NEG) Urine Osmolality 258 MOSM/KG (300-1300) Test 09/01/17 04:04 PE at Discharge Not in distress Coherent [place] conjunctivae, anicteric sclera Regular rate and rhythm Clear breath sounds Abdomen soft nontender Alert awake and oriented 3. Hospital Course This is a 67-year-old male with history of HIV, presenting with bacteremia. Patient was also found to have acute renal failure. Acute renal failure was thought to be secondary to ATN, secondary to rhabdomyolysis.Ultrasound of the kidneys did not show any obstruction, showed medical renal disease. Patient was placed in albumin with Lasix by nephrology. Patient was also found to have MRSA bacteremia, blood culture, both bottles grew MRSA, ID was consulted. Patient was started on vancomycin and azithromycin for possible pulmonary source. CT scan of the left knee unremarkable, there is no effusion. TTE negative without any vegetations. Patient also went to atrial fibrillation with RVR, he was started on amiodarone, Eliquis and he was continued on metoprolol and digoxin. Patient however felt better after several days of hospitalization and elected to leave AGAINST MEDICAL ADVICE. After discussing with patient today however, he wants to leave AGAINST MEDICAL ADVICE. He is aware that he has MRSA bacteremia and worsening renal failure and has a very high risk of returning to the hospital with the same infection or can even cause mortality. Patient says that he said he wants to go home because he feels good. He has capacity to make decision. He was able to verbalize back that if he becomes sick again, he will come back to the hospital. He is also aware that he may become too sick that it can be too late for him and he can . He still elected to go home AGAINST MEDICAL ADVICE. Patient left AMA before prescriptions were given. Pt Condition on Discharge: Guarded Discharge Disposition: Discharge Home (AGAINST MEDICAL ADVICE.) Discharge Time: > 30 minutes Miki Martinez MD Sep 01, 2017 15:48
[2017-09-01] MEDS ORDERED: DIGO0.25 PO (15:51)
[2017-09-01] MEDS ORDERED: AMIO200T PO (15:51)
[2017-09-01] MEDS ORDERED: METO-309 PO (15:51)
[2017-09-01] MEDS ORDERED: AZIT250T3 PO (15:51)
== END 2017-09-01 15:40 | disposition left against medical advice (07) | DRG 557 ==
LOC: NEPE 20:34 → NEDA 23:37 → N07B 08-28 04:01 → HIMN 08-30 09:45
PROVIDERS: ADMIT Hospitalist; ATTEND Hospitalist
DX: M62.82 Rhabdomyolysis (principal); B20 Human immunodeficiency virus [HIV] disease; N17.0 Acute kidney failure with tubular necrosis; J18.9 Pneumonia, unspecified organism; I48.91 Unspecified atrial fibrillation; I50.9 Heart failure, unspecified; R78.81 Bacteremia; L03.116 Cellulitis of left lower limb; Z79.899 Other long term (current) drug therapy; B95.62 Methicillin resistant Staphylococcus aureus infection as the cause of diseases classified elsewhere; F31.9 Bipolar disorder, unspecified; R60.0 Localized edema; T46.6X5A Adverse effect of antihyperlipidemic and antiarteriosclerotic drugs, initial encounter; T37.5X5A Adverse effect of antiviral drugs, initial encounter; T14.8XXA Other injury of unspecified body region, initial encounter; W18.31XA Fall on same level due to stepping on an object, initial encounter; Y92.009 Unspecified place in unspecified non-institutional (private) residence as the place of occurrence of the external cause; Z87.891 Personal history of nicotine dependence
CPT/HCPCS: 70450; 71045; 73564; 73700; 76775; 80048; 80053; 80202; 81001; 82550; 82552; 82565; 82570; 83605; 83735; 83880; 83935; 84300; 84443; 84484; 85025; 85610; 85730; 86021; 86038; 86403; 87015; 87040; 87147; 87186; 87205; 87641; 93005; 93306; 93308; 93971; 94640; 94664; 96361; 96374; J0282; J0456; J0696; J1644; J1940; J2543; J3370; J7030; J7040; J7050; P9045